=== PATIENT | female | born 1980 | race American Indian/Alaskan Native ===

== ENCOUNTER 2016-05-18 13:15 | Emergency (ER) | payer OTHER ==
[2016-05-18 14:07] VITALS: BP 100/70; PULSE 87; RESP 18; TEMP 97.9; O2SAT 98; BMI 46.3
[2016-05-18] MEDS ORDERED: Levalbuterol 1.25 MG/3 ML Inhal Soln UD IH STA ×2 (14:32→15:15)
--- NOTE | 2016-05-18 14:58 | ED PDOC ---
Arrival/HPI - General Time Seen by Provider: 05/18/16 14:28 Historian: Patient - History of Present Illness Narrative History of Present Illness (Text): 05/18/16 14:55 36yo morbidly obese female Asthmatic present with complaint of chest tightness, wheezing and nonproductive cough x 2days. This is in contrary to the engagement lead note. States her PMD called in Prednisone for her today and she took a dose, which improved her symptoms. Used her Albuterol inhaler at home prior to arrival. States she is not steroid dependent. Never intubated. reports history of hospital admission secondary to Asthma. denies fever, chills, sick contact, any other complaint. Past Medical History - Provider Review Nursing Documentation Reviewed: Yes - Past History Past History: Non-Contributing - Infectious Disease Hx of Infectious Diseases: None - Tetanus Immunization Tetanus Immunization: Unknown - Cardiac Hx Cardiac Disorders: No - Pulmonary Hx Asthma: Yes - Neurological Hx Neurological Disorder: No - HEENT Hx HEENT Disorder: No - Renal Hx Renal Disorder: No - Endocrine/Metabolic Hx Endocrine Disorders: No - Hematological/Oncological Hx Blood Disorders: No - Integumentary Hx Dermatological Disorder: No - Musculoskeletal/Rheumatological Hx Musculoskeletal Disorders: No Hx Falls: No - Gastrointestinal Hx Gastrointestinal Disorders: No - Genitourinary/Gynecological Hx Genitourinary Disorders: Yes Other/Comment: ovarian cyst and uterine fibroid - Psychiatric Hx Depression: No Hx Substance Use: No - Past Surgical History Past Surgical History: No Previous - Surgical History Other/Comment: drained abscess x2, ovarian cyst and uterine fibroid removed 10/21 - Anesthesia Hx Anesthesia: Yes Hx Anesthesia Reactions: No Hx Malignant Hyperthermia: No - Suicidal Assessment Feels Threatened In Home Enviroment: No Family/Social History - Physician Review Nursing Documentation Reviewed: Yes Family/Social History: Unknown Family HX Smoking Status: Former Smoker Hx Alcohol Use: Yes (social) Hx Substance Use: No Hx Substance Use Treatment: No Allergies/Home Meds Allergies/Adverse Reactions: Allergies aspirin Allergy (Verified 12/09/15 20:47) SHORTNESS OF BREATH "my throat swells and i get short of breath" Home Medications: Home Meds Medication Instructions Recorded Confirmed Albuterol HFA [Ventolin HFA 90 90 mcg INH PRN PRN 05/25/15 01/16/16 mcg/actuation (8 g)] Ipratropium/Albuterol Sulfate 2 puff IH BID 10/31/15 01/16/16 [Combivent Respimat] predniSONE [Prednisone] 20 mg PO DAILY 12/27/15 01/16/16 Review of Systems - Physician Review All systems were reviewed & negative as marked: Yes - Review of Systems Constitutional: Normal Eyes: Normal ENT: Normal Respiratory: SOB, Cough, Wheezing. absent: Sputum Cardiovascular: Normal Gastrointestinal: Normal Genitourinary Female: Normal Musculoskeletal: Normal Skin: Normal Neurological: Normal Endocrine: Normal Hemo/Lymphatic: Normal Psychiatric: Normal Physical Exam Vital Signs Reviewed: Yes Vital Signs Temp Pulse Resp BP Pulse Ox 05/18/16 15:00 98 05/18/16 14:07 97.9 F 87 18 100/70 98 Temperature: Afebrile Blood Pressure: Normal Pulse: Regular Respiratory Rate: Normal Appearance: Positive for: Well-Appearing, Non-Toxic, Comfortable Pain Distress: None Mental Status: Positive for: Alert and Oriented X 3 - Systems Exam Head: Present: Atraumatic, Normocephalic Pupils: Present: PERRL Extroacular Muscles: Present: EOMI Conjunctiva: Present: Normal Mouth: Present: Moist Mucous Membranes Neck: Present: Normal Range of Motion Respiratory/Chest: Present: Good Air Exchange, Wheezes (Mild expiratory wheeze at the bases). No: Clear to Auscultation, Respiratory Distress, Accessory Muscle Use, Decreased Breath Sounds, Rales, Retracting, Rhonchi Cardiovascular: Present: Regular Rate and Rhythm, Normal S1, S2. No: Murmurs Abdomen: Present: Normal Bowel Sounds. No: Tenderness, Distention, Peritoneal Signs Back: Present: Normal Inspection Upper Extremity: Present: Normal Inspection. No: Cyanosis, Edema Lower Extremity: Present: Normal Inspection. No: Edema Neurological: Present: GCS=15, CN II-XII Intact, Speech Normal Skin: Present: Warm, Dry, Normal Color. No: Rashes Psychiatric: Present: Alert, Oriented x 3, Normal Insight, Normal Concentration Medical Decision Making ED Course and Treatment: 05/18/16 15:41 Pt was comfortable and not hypoxic in ED. she had mild wheeze on the bases. Xopenex was ordered. PEr the RN Jennie, she states pt eloped from the ED. States pt was not in her room when she went to medicate her. - Medication Orders Current Medication Orders: Discontinued Medications Levalbuterol HCl (Xopenex) 1.25 mg IH STAT STA Stop: 05/18/16 14:33 Levalbuterol HCl (Xopenex) 1.25 mg IH STAT STA Stop: 05/18/16 15:16 Disposition/Present on Arrival - Present on Arrival Any Indicators Present on Arrival: No History of DVT/PE: No History of Uncontrolled Diabetes: No Urinary Catheter: No History Surgical Site Infection Following: None - Disposition Have Diagnosis and Disposition been Completed?: Yes Diagnosis: Asthma exacerbation Disposition: ELOPEMENT - ER ONLY Disposition Time: 15:25 Patient Problems: Current Active Problems Problem Status Diagnosed Groin abscess Acute History of asthma Acute Prophylactic measure Acute Pruritic condition Acute Condition: STABLE
== END 2016-05-18 15:40 | disposition left against medical advice (07) ==
LOC: ED 13:15
DX: J45.901 Unspecified asthma with (acute) exacerbation (principal); Z87.891 Personal history of nicotine dependence; E66.01 Morbid (severe) obesity due to excess calories

== ENCOUNTER 2016-09-11 04:02 | Emergency (ER) | payer MEDICAID, OTHER ==
[2016-09-11 04:03] VITALS: BMI 46.3
[2016-09-11 04:30] VITALS: BP 107/68; PULSE 61; RESP 18; TEMP 98.6; O2SAT 100
--- NOTE | 2016-09-11 04:54 | ED PDOC ---
Arrival/HPI - General Chief Complaint: Back Pain Time Seen by Provider: 09/11/16 04:47 - History of Present Illness Narrative History of Present Illness (Text): 09/11/16 04:52 Patient presents with right lower lumbar back pain. Pt states pain feels like a muscle spasm, worst with movement and palpation. No ripping/tearing sensation, pt is not diffuse and not traveling or changing location. Relieved with positioning. No lower extremity pain/weakness/paresthesias. Pt denies urinary incontinence or retention. No bowel incontinence, constipation, or diarrhea. No hx of IVDA, no f/c, no neck pain. No other complaints. Past Medical History - Provider Review Nursing Documentation Reviewed: Yes - Past History Past History: Non-Contributing - Infectious Disease Hx of Infectious Diseases: None - Tetanus Immunization Tetanus Immunization: Unknown - Cardiac Hx Cardiac Disorders: No - Pulmonary Hx Asthma: Yes - Neurological Hx Neurological Disorder: No - HEENT Hx HEENT Disorder: No - Renal Hx Renal Disorder: No - Endocrine/Metabolic Hx Endocrine Disorders: No - Hematological/Oncological Hx Blood Disorders: No - Integumentary Hx Dermatological Disorder: No - Musculoskeletal/Rheumatological Hx Musculoskeletal Disorders: No Hx Falls: No - Gastrointestinal Hx Gastrointestinal Disorders: No - Genitourinary/Gynecological Hx Genitourinary Disorders: Yes Other/Comment: ovarian cyst and uterine fibroid - Psychiatric Hx Depression: No Hx Substance Use: No - Past Surgical History Past Surgical History: No Previous - Surgical History Other/Comment: drained abscess x2, ovarian cyst and uterine fibroid removed 10/21 - Anesthesia Hx Anesthesia: Yes Hx Anesthesia Reactions: No Hx Malignant Hyperthermia: No - Suicidal Assessment Feels Threatened In Home Enviroment: No Family/Social History Family/Social History: Unknown Family HX Smoking Status: Former Smoker Hx Alcohol Use: Yes (social) Hx Substance Use: No Hx Substance Use Treatment: No Allergies/Home Meds Allergies/Adverse Reactions: Allergies aspirin Allergy (Verified 12/09/15 20:47) SHORTNESS OF BREATH "my throat swells and i get short of breath" Physical Exam - Physical Exam Narrative Physical Exam (Text): 09/11/16 04:53 - Review of Systems Constitutional: Normal. absent: Fatigue, Weight Change, Fevers Eyes: Normal ENT: denies sore throat, denies tristhmus Respiratory: Normal. absent: SOB, Cough, Sputum Cardiovascular: absent: Chest Pain, Palpitations, Syncope Gastrointestinal: Normal. absent: Abdominal Pain, Diarrhea, Nausea, Vomiting Genitourinary: Normal. absent: Dysuria, Frequency, Hematuria Musculoskeletal: back pain. absent: Arthralgias, Neck Pain Skin: no rashes, no erythema Neurological: absent: Focal Weakness Endocrine: Normal Hemo/Lymphatic: Normal Psychiatric: No suicidal or homicidal ideations Physical exam Patient appears age appropriate in no distress, speaking full sentences without difficulty Increased hypertonicity appreciated in the right lower lumbar and PSIS regions, pain quality reproduced with palpation. No midline tenderness. FROM of pt's cervical, thoracic, lumbar, and sacral regions appreciated, active/passive without any difficulty. Lower extremities with full neurological and vascular intact. Steady gait. - Systems Exam Head: Present: Atraumatic, Normocephalic Pupils: Present: PERRL Extroacular Muscles: Present: EOMI Conjunctiva: Present: Normal Mouth: Present: Moist Mucous Membranes Neck: Present: Normal Range of Motion. No: MIDLINE TENDERNESS, Paraspinal Tenderness Respiratory/Chest: Present: Clear to Auscultation, Good Air Exchange. No: Respiratory Distress, Accessory Muscle Use, Tachypneic Cardiovascular: Present: Regular Rate and Rhythm, Normal S1, S2, Peripheal Pulses Present. No: Murmurs Abdomen: Present: Normal Bowel Sounds. No: Tenderness, Distention, Peritoneal Signs, Rebound, Guarding Back: No: Midline Tenderness Upper Extremity: Present: Normal Inspection. No: Cyanosis, Edema Lower Extremity: Present: Normal Inspection. No: Edema Neurological: Present: GCS=15, Speech Normal, cranial nerves II through XII fully intact with no cerebellar abnormality, neurosensory fully intact. No focal neurological deficits. Skin: Present: Warm, Dry, Normal Color. No: Rashes Lymphatic: Present: OX3, NI, NC Psychiatric: Present: Alert, Oriented x 3, Normal Insight, Normal Concentration Vital Signs Reviewed: Yes Vital Signs Temp Pulse Resp BP Pulse Ox 09/11/16 04:29 98.6 F 61 18 107/68 100 Temperature: Afebrile Blood Pressure: Normal Pulse: Regular Respiratory Rate: Normal Appearance: Positive for: Well-Appearing Pain Distress: None Mental Status: Positive for: Alert and Oriented X 3 Medical Decision Making ED Course and Treatment: 09/11/16 05:15 RBCs in urine, CT ordered 09/11/16 06:23 CT [facility] IMPRESSION: No obstructive uropathy. Normal appendix. Right ovarian cyst. Dictated and Authenticated by: Inge Riley MD pt received toradol, reported symptomatic relief. Pt states is not driving home. Based on hx and physical, no suspicion for renal involvement, cord impingement or epidural/spinal abscess pt states she has an allergy to aspirin, but has taken advil and motrin in the past with no adverse effects stable for dc home. instructed not to drive/operate machinery/drink/do drugs with medication (states she has valium and flexeril at home) Pt verbalized understands to return to the ER right away for new or worsening symptoms or for inability to f/u with PMD or specialist as instructed. Patient verbalized full agreement with and understanding of discharge instructions. States that he agrees with the plan and disposition. Verbalized and repeated discharge instructions and plan. I have given the patient opportunity to ask any additional questions. - Lab Interpretations Lab Results: Lab Results 09/11/16 05:00: Urine Color Yellow, Urine Appearance Sl cloudy, Urine pH 7.0, Ur Specific [place] 1.025, Urine Protein Trace H, Urine Glucose (UA) Negative, Urine Ketones Negative, Urine Blood Small H, Urine Nitrate Negative, Urine Bilirubin Negative, Urine Urobilinogen 1.0 H, Ur Leukocyte Esterase Negative, Urine RBC 2 - 5, Urine WBC 0 - 2, Ur Epithelial Cells 0 - 2, Urine Bacteria Few - RAD Interpretation Radiology Orders: 09/11/16 05:15 ABD & PELVIS W/O PO OR IV CONT [CT] Stat - Medication Orders Current Medication Orders: Discontinued Medications Ketorolac Tromethamine (Toradol) 30 mg IM STAT STA Stop: 09/11/16 04:49 Last Admin: 09/11/16 05:10 Dose: 30 mg Disposition/Present on Arrival - Present on Arrival Any Indicators Present on Arrival: No History of DVT/PE: No History of Uncontrolled Diabetes: No Urinary Catheter: No History of Decub. Ulcer: No History Surgical Site Infection Following: None - Disposition Have Diagnosis and Disposition been Completed?: Yes Diagnosis: Back pain Disposition: HOME/ ROUTINE Disposition Time: 06:31 Patient Plan: Discharge Condition: GOOD Discharge Instructions (ExitCare): Back Pain (ED) Additional Instructions: PLEASE RETURN TO THE EMERGENCY DEPARTMENT FOR NEW OR WORSENING SYMPTOMS. RETURN RIGHT AWAY IF YOU CANNOT FOLLOW UP WITH YOUR PRIMARY CARE DOCTOR, CLINIC, OR SPECIALIST IN 1-2 DAYS. Prescriptions: Ibuprofen [Motrin] 600 mg PO Q8 PRN #12 tab PRN Reason: Pain, Moderate (4-7) Referrals: Joann Lind MD [Staff Provider] - Follow up with primary Forms: WORK NOTE
[2016-09-11 05:06] LABS: URINE BILIRUBIN NEGATIVE (NEGATIVE); URINE BLOOD SMALL (NEGATIVE); URINE GLUCOSE (UA) NEGATIVE (NEGATIVE); URINE LEUKOCYTE ESTERASE NEGATIVE Leu/uL (NEGATIVE); URINE NITRATE NEGATIVE (NEGATIVE); URINE PROTEIN TRACE mg/dL (<30 mg/dL)
[2016-09-11 05:14] LABS: URINE APPEARANCE SL CLOUDY (CLEAR); URINE COLOR YELLOW (YELLOW)
[2016-09-11 05:16] LABS: URINE BACTERIA FEW (NEG); URINE EPITHELIAL CELLS 0 - 2 /hpf (0-5); URINE WBC 0 - 2 /hpf (0-6)
--- NOTE | 2016-09-11 05:52 | CT ---
EXAM: CT Abdomen and Pelvis Without Intravenous Contrast CLINICAL HISTORY: 36 years old, female; Pain; Abdominal pain; Generalized; Additional info: Renal colic TECHNIQUE: Axial computed tomography images of the abdomen and pelvis without intravenous contrast. This CT exam was performed using one or more of the following dose reduction techniques: automated exposure control, adjustment of the mA and/or kV according to patient size, and/or use of iterative reconstruction technique. Coronal and sagittal reformatted images were created and reviewed. COMPARISON: CT - ABD PELVIS IV CONTRAST ONLY 10/17/2015 10:19:13 PM FINDINGS: Lower thorax: The bilateral lung bases are clear. ABDOMEN: Liver: No acute findings Gallbladder and bile ducts: No acute finding. No calcified stones. No intra-extrahepatic biliary ductal dilation. Pancreas: Limited evaluation secondary to the lack of intravenous contrast. Spleen: No acute findings. Adrenals: No acute findings. Kidneys and ureters: No obstructing stones. No hydronephrosis. PELVIS: Bladder: No acute findings. Reproductive: No asymmetric enlargement of the right ovary, in comparison to the left measuring 41 mm in anterior to posterior dimension. The enlarged ovary is of decreased attenuation, statistically a cyst. Appendix: The appendix is of normal caliber (series 2, image 126; series 601, image 45). ABDOMEN and PELVIS: Stomach and bowel: No acute findings. Peritoneum: As above. Lymph nodes: Limited evaluation without intravenous contrast. Vasculature: No aortic aneurysm. Bones: No acute fracture. IMPRESSION: No obstructive uropathy. Normal appendix. Right ovarian cyst.
== END 2016-09-11 06:47 | disposition home or self-care (01) ==
LOC: ED 04:02
DX: M54.9 Dorsalgia, unspecified (principal)
CPT/HCPCS: 74176; 81001; 96372; 99283; J1885

== ENCOUNTER 2016-10-27 06:13 | Emergency (ER) | payer MEDICAID ==
[2016-10-27 06:14] VITALS: BMI 46.3
--- NOTE | 2016-10-27 06:24 | ED PDOC ---
Arrival/HPI - General Chief Complaint: Respiratory Distress Time Seen by Provider: 10/27/16 06:18 - History of Present Illness Narrative History of Present Illness (Text): 10/27/16 06:21 Pt. to ED PMHX Asthma BIBA with c/o sob /wheezing this AM.Pt. states she had been using her MDI and nebulizer with minimal relief.Denies any chest pain.No fever/chills/or productive cough.Pt. with neb. treatment on arrival. Past Medical History - Provider Review Nursing Documentation Reviewed: Yes - Travel History Have you recently traveled outside [place] w/in the past 3 mons?: No - Past History Past History: Non-Contributing - Infectious Disease Hx of Infectious Diseases: None - Tetanus Immunization Tetanus Immunization: Unknown - Cardiac Hx Cardiac Disorders: No - Pulmonary Hx Asthma: Yes - Neurological Hx Neurological Disorder: No - HEENT Hx HEENT Disorder: No - Renal Hx Renal Disorder: No - Endocrine/Metabolic Hx Endocrine Disorders: No - Hematological/Oncological Hx Blood Disorders: No - Integumentary Hx Dermatological Disorder: No - Musculoskeletal/Rheumatological Hx Musculoskeletal Disorders: No Hx Falls: No - Gastrointestinal Hx Gastrointestinal Disorders: No - Genitourinary/Gynecological Hx Genitourinary Disorders: Yes Other/Comment: ovarian cyst and uterine fibroid - Psychiatric Hx Depression: No Hx Substance Use: No - Past Surgical History Past Surgical History: No Previous - Surgical History Other/Comment: drained abscess x2, ovarian cyst and uterine fibroid removed 10/21 - Anesthesia Hx Anesthesia: Yes Hx Anesthesia Reactions: No Hx Malignant Hyperthermia: No - Suicidal Assessment Feels Threatened In Home Enviroment: No Family/Social History - Physician Review Nursing Documentation Reviewed: Yes Family/Social History: No Known Family HX Smoking Status: Former Smoker Hx Alcohol Use: Yes (social) Hx Substance Use: No Hx Substance Use Treatment: No Allergies/Home Meds Allergies/Adverse Reactions: Allergies aspirin Allergy (Verified 10/27/16 06:29) SHORTNESS OF BREATH "my throat swells and i get short of breath" Home Medications: Home Meds Medication Instructions Recorded Confirmed Unobtainable 10/27/16 10/27/16 Review of Systems - Review of Systems Constitutional: Normal Eyes: Normal ENT: Normal Respiratory: SOB, Wheezing Cardiovascular: Normal Gastrointestinal: Normal Genitourinary Female: Normal Musculoskeletal: Normal Skin: Normal Neurological: Normal Endocrine: Normal Hemo/Lymphatic: Normal Psychiatric: Normal Physical Exam Vital Signs Temp Pulse Resp BP Pulse Ox 10/27/16 06:32 97.1 F L 99 H 18 154/110 H 100 Temperature: Afebrile Blood Pressure: Normal Pulse: Regular Respiratory Rate: Normal Appearance: Positive for: Well-Appearing, Non-Toxic, Comfortable Pain Distress: None Mental Status: Positive for: Alert and Oriented X 3 - Systems Exam Head: Present: Atraumatic, Normocephalic Pupils: Present: PERRL Extroacular Muscles: Present: EOMI Conjunctiva: Present: Normal Ears: Present: NORMAL TM Mouth: Present: Moist Mucous Membranes Pharnyx: Present: Normal Neck: Present: Normal Range of Motion Respiratory/Chest: Present: Clear to Auscultation, Wheezes. No: Respiratory Distress, Accessory Muscle Use Cardiovascular: Present: Regular Rate and Rhythm, Normal S1, S2. No: Murmurs Back: Present: Normal Inspection Upper Extremity: Present: Normal Inspection. No: Cyanosis, Edema Lower Extremity: Present: Normal Inspection. No: Edema Neurological: Present: GCS=15, CN II-XII Intact, Speech Normal, Motor Func Grossly Intact, Normal Sensory Function Skin: Present: Warm, Dry, Normal Color. No: Rashes Psychiatric: Present: Alert, Oriented x 3, Normal Insight, Normal Concentration Medical Decision Making - Medication Orders Current Medication Orders: Discontinued Medications Albuterol/Ipratropium (Duoneb 3 Mg/0.5 Mg (3 Ml) Ud) 3 ml IH ONCE STA Stop: 10/27/16 06:29 Methylprednisolone (Solu-Medrol) 125 mg IVP ONCE ONE Stop: 10/27/16 06:29 - Transfer of Care Patient signed out to :Tato Doyle Pending Labs:: Labs/response to treatment/reassess/final disposition Disposition/Present on Arrival - Present on Arrival Any Indicators Present on Arrival: No History of DVT/PE: No History of Uncontrolled Diabetes: No Urinary Catheter: No History Surgical Site Infection Following: None - Disposition Have Diagnosis and Disposition been Completed?: No Diagnosis: Asthma Disposition Time: 07:00 Condition: STABLE
[2016-10-27] MEDS ORDERED: Albuterol-Ipratrop 3 mg / 0.5 (3 ml) UD IH STA (06:28)
[2016-10-27 06:36] VITALS: TEMP 97.1; O2SAT 100
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
[2016-10-27 08:02] LABS: HEMATOCRIT 40.5 % (36.0-48.0); MEAN CELL VOLUME 88.2 fl (80.0-105.0); MEAN CORPUSCULAR HEMOGLOBIN 29.4 pg (25.0-35.0); MEAN CORPUSCULAR HGB CONC 33.3 g/dl (31.0-37.0); MEAN PLATELET VOLUME 9.1 fl (7.0-11.0); RED CELL DISTRIBUTION WIDTH 13.7 % (11.5-14.5); WHITE BLOOD COUNT 13.1 10^3/ul (4.5-11.0)
[2016-10-27 08:12] VITALS: BP 135/82; PULSE 72
[2016-10-27 08:30] LABS: ALB/GLOB RATIO 1.4 (1.1-1.8); ALKALINE PHOSPHATASE 56 U/L (38-133); ALT/SGPT 30 U/L (7-56); AST/SGOT 29 U/L (15-39); BILIRUBIN,TOTAL 0.7 mg/dL (0.2-1.3); BLOOD UREA NITROGEN 12 mg/dL (7-21); CALCIUM 9.4 mg/dL (8.4-10.5); CARBON DIOXIDE 29 mmol/L (21-33); CHLORIDE 103 mmol/L (98-107); GFR AFRICAN-AMERICAN > 60; GLUCOSE,RANDOM 140 mg/dL (70-110); POTASSIUM 3.3 mmol/L (3.6-5.0); SODIUM 142 mmol/L (132-148)
[2016-10-27 08:36] VITALS: RESP 18
[2016-10-27] MEDS ORDERED: Potassium Chloride 20 mEq ER Tab PO STA (08:39)
--- NOTE | 2016-10-27 10:06 | RAD ---
HISTORY: Asthma COMPARISON: 03/16/2016. FINDINGS: LUNGS: The lungs are well inflated and clear. PLEURA: No significant pleural effusion identified, no pneumothorax apparent. CARDIOVASCULAR: Normal. OSSEOUS STRUCTURES: No significant abnormalities. VISUALIZED UPPER ABDOMEN: Normal. OTHER FINDINGS: None. IMPRESSION: No active pulmonary disease.
== END 2016-10-27 11:10 | disposition home or self-care (01) ==
LOC: ED 06:13
DX: J45.909 Unspecified asthma, uncomplicated (principal); Z87.891 Personal history of nicotine dependence
CPT/HCPCS: 71010; 80053; 85027; 96374; 99285; J2930

== ENCOUNTER 2016-11-15 16:59 | Emergency (ER) | payer MEDICAID ==
[2016-11-15 17:03] VITALS: BMI 41.2
[2016-11-15 17:05] VITALS: BP 119/73; PULSE 77; TEMP 98.1; O2SAT 98
[2016-11-15] MEDS ORDERED: TDAP Vaccine 0.5 mL Syr IM ONE (17:50)
--- NOTE | 2016-11-15 18:00 | ED PDOC ---
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 Patient stated a heavy marble table, which was leaning against the wall, fall over her posterior legs. Patient has a couple abrasions. Last tetanus is UKN. Patient is able to ambulate without discomfort. (Daisy Lamar) Past Medical History - Provider Review Nursing Documentation Reviewed: Yes - Past History Past History: Non-Contributing - Infectious Disease Hx of Infectious Diseases: None - Tetanus Immunization Tetanus Immunization: Unknown - Cardiac Hx Cardiac Disorders: No - Pulmonary Hx Asthma: Yes - Neurological Hx Neurological Disorder: No - HEENT Hx HEENT Disorder: No - Renal Hx Renal Disorder: No - Endocrine/Metabolic Hx Endocrine Disorders: No - Hematological/Oncological Hx Blood Disorders: No - Integumentary Hx Dermatological Disorder: No - Musculoskeletal/Rheumatological Hx Arthritis: Yes (R knee) Hx Falls: No - Gastrointestinal Hx Gastrointestinal Disorders: No - Genitourinary/Gynecological Hx Genitourinary Disorders: Yes Other/Comment: ovarian cyst and uterine fibroid - Psychiatric Hx Depression: No Hx Substance Use: No - Past Surgical History Past Surgical History: No Previous - Surgical History Other/Comment: drained abscess x2, ovarian cyst and uterine fibroid removed 10/21 - Anesthesia Hx Anesthesia: Yes Hx Anesthesia Reactions: No Hx Malignant Hyperthermia: No - Suicidal Assessment Feels Threatened In Home Enviroment: No Family/Social History - Physician Review Nursing Documentation Reviewed: Yes Family/Social History: Other (non-contributory) Smoking Status: Current Some Days Smoker Hx Alcohol Use: Yes (social) Frequency of alcohol use: Socially Hx Substance Use: No Hx Substance Use Treatment: No Allergies/Home Meds Allergies/Adverse Reactions: Allergies aspirin Allergy (Verified 10/27/16 06:29) SHORTNESS OF BREATH "my throat swells and i get short of breath" Home Medications: Home Meds Medication Instructions Recorded Confirmed Albuterol/Ipratropium [Combivent 1 puff IH DAILY PRN 11/15/16 11/15/16 Respimat] predniSONE [predniSONE Tab] 10 mg PO DAILY 11/15/16 11/15/16 Review of Systems - Review of Systems Constitutional: Normal. absent: Fatigue, Weight Change, Fevers Eyes: Normal ENT: Normal Respiratory: Normal Cardiovascular: Normal Gastrointestinal: Normal Genitourinary Female: Normal Musculoskeletal: Other (see hpi) Skin: Other (see hpi) Neurological: Normal Endocrine: Normal Hemo/Lymphatic: Normal Psychiatric: Normal Physical Exam Temperature: Afebrile Blood Pressure: Normal Pulse: Regular Respiratory Rate: Normal Appearance: Positive for: Well-Appearing, Non-Toxic, Comfortable Pain Distress: None Mental Status: Positive for: Alert and Oriented X 3 - Systems Exam Head: Present: Atraumatic, Normocephalic Pupils: Present: PERRL Extroacular Muscles: Present: EOMI Conjunctiva: Present: Normal Mouth: Present: Moist Mucous Membranes Neck: Present: Normal Range of Motion Upper Extremity: Present: Normal Inspection, Normal ROM, NORMAL PULSES, Neurovascularly Intact, Capillary Refill < 2s Lower Extremity: Present: NORMAL PULSES, Normal ROM, Neurovascularly Intact, Capillary Refill < 2 s, Other ((+) left posterior knee abrasion, mild left lateral lower leg tenderness. No ecchymosis or swelling. (+) right posterior ankle abrasion. No posterior calf tenderness. Zhang test is negative ). No : CALF TENDERNESS Neurological: Present: GCS=15, CN II-XII Intact, Speech Normal, Motor Func Grossly Intact, Normal Sensory Function, Normal Cerebellar Funct, Gait Normal, Memory Normal Skin: Present: Warm, Dry, Normal Color, Abrasion (see LE). No: Rashes Psychiatric: Present: Alert, Oriented x 3, Normal Insight, Normal Concentration Vital Signs Temp Pulse Resp BP Pulse Ox 11/15/16 18:31 17 98 11/15/16 17:04 98.1 F 77 18 119/73 98 Medical Decision Making Re-evaluation Time: :17 Reassessment Condition: Re-examined, Improved ED Course and Treatment: 11/16/16 14:51 Official xray results show the following: IMPRESSION: Acute mildly displaced fracture in the head of the fibula with 1 cortex with medial displacement. I attempted to call the patient, no one answer, voicemail is full, next PA should perform the call back tomorrow to reassess as per ER standard protocol ( Landry Chao) 11/15/16 18:00 Patient refused pain medication. 11/18/16 12:14 I SPOKE WITH PATIENT REGARDING PROXIMAL FIBULAR FRACTURE SEEN ON TIB FIB X-RAYS. I GAVE PATIENT NAME AND NUMBER OF [facility] FOR FOLLOW UP VISIT. PATIENT UNDERSTOOD PLAN TO F/U DR. ANGLIN IN 1-2 DAYS. (Daisy Lamar) - RAD Interpretation Narrative RAD Interpretations (Text): 11/15/16 18:19 Tib Fib x-rays: No Fx 11/15/16 18:20 Ankle x-rays: No Fx. 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 Ulcer: No History Surgical Site Infection Following: None - Disposition Have Diagnosis and Disposition been Completed?: Yes Disposition Time: 18:21 Patient Plan: Discharge - Disposition Diagnosis: Leg pain, Ankle pain, Abrasion, Fracture, fibula, proximal Disposition: HOME/ ROUTINE Condition: GOOD Discharge Instructions (ExitCare): Contusion in Adults (ED) Additional Instructions: Call private doctor for follow up visit in 1-2 days. Clean scrapes with soap and water only, and apply over the counter topical antibiotic. Return to emergency for skin infection or worsen symptoms. Take OTC Tylenol for pain as needed. Patient was recommended to f/u Dr. Anglin in 1-2 days. To avoid extraneous activities. Return to emergency if pain worsen. Referrals: Tao Barahona MD [Primary Care Provider] - Follow up with primary Cullen Anglin DO [Staff Provider] - Follow up with primary Forms: [employer] (Setswana)
[2016-11-15 18:32] VITALS: RESP 17
--- NOTE | 2016-11-16 09:01 | RAD ---
PROCEDURE: Radiographs of the left tibia and fibula. HISTORY: pain COMPARISON: None available. TECHNIQUE: Frontal and lateral views obtained. FINDINGS: BONES: There is an acute mildly displaced fracture in the head of the fibula with 1 cortex with medial displacement. No significant angulation. Bone alignment and mineralization are normal. JOINT SPACES: Unremarkable. OTHER FINDINGS: None. IMPRESSION: Acute mildly displaced fracture in the head of the fibula with 1 cortex with medial displacement. There is a discrepancy with the ER preliminary read. This finding was brought to the ER is a tension by tagging the study in the ER and discrepancy folderes.
--- NOTE | 2016-11-16 09:02 | RAD ---
PROCEDURE: Right Ankle Radiographs. HISTORY: pain COMPARISON: None FINDINGS: BONES: Bone alignment and mineralization are normal. There is no acute displaced fracture or bone destruction. There is a prominent plantar calcaneal spur. There is a small dorsal calcaneal enthesophyte JOINTS: Normal. No osteoarthritis. Ankle mortise maintained. Talar dome intact SOFT TISSUES: Normal. OTHER FINDINGS: None. IMPRESSION: No acute fracture or dislocation.
--- NOTE | 2016-11-17 14:11 | ED PDOC ---
ED Additional Note - Physician Additional Note Physician Additional Note: XRAY PLACED INTO PA REVIEW FOLDER; XRAY SHOWS FRACTURE OF THE HEAD OF THE FIBULA WITH MEDIAL DISPLACEMENT. UNABLE TO LEAVE VOICEMAIL; MAILBOX FULL. THIS IS THE 2ND ATTEMPT TO REACH THE PATIENT. WILL SEND CERTIFIED LETTER. XRAY REPORT GIVEN TO LIS [employer]OUS [employer]OR [employer]SEMBLER TO SEND CERTIFIED LETTER.
== END 2016-11-15 18:32 | disposition home or self-care (01) ==
LOC: ED 16:59
DX: M79.662 Pain in left lower leg (principal); M25.571 Pain in right ankle and joints of right foot; S80.212A Abrasion, left knee, initial encounter; W20.8XXA Other cause of strike by thrown, projected or falling object, initial encounter; Z23 Encounter for immunization

== ENCOUNTER 2016-11-24 12:37 | Emergency (ER) | payer MEDICAID ==
[2016-11-24 12:54] VITALS: BP 114/66; PULSE 78; RESP 18; TEMP 98.7; O2SAT 98; BMI 40.7
--- NOTE | 2016-11-24 13:09 | ED PDOC ---
Arrival/HPI - General Historian: Patient - History of Present Illness Time/Duration: < month Symptom Onset: Gradual Symptom Course: Worsening Severity Level: 8 Context: Walking <LISETTE VALVERDE - Last Filed: 11/24/16 13:40> <Bay Velasquez - Last Filed: 11/24/16 14:16> - General Chief Complaint: Lower Extremity Problem/Injury Time Seen by Provider: 11/24/16 12:51 - History of Present Illness Narrative History of Present Illness (Text): 11/24/16 13:04 Mrs. Finch is a 36 year old female with a past medical history of asthma who presents to the emergency department with left lower extremity numbness/ tingling. Patient reports that she came to the Emergency department today because she was notified that she had a fracture in her left leg. Patient was recently discharged [place] [facility] [place] with a diagnosis of contusion after she presented for left lower extremity pain caused by a table falling on her left leg. During that admission, a preliminary read on a left tibia/fibula x-ray showed no fracture. She was instructed to follow up with her PMD, which she did the following day. The final read of her left tibia/fibula x-ray showed that she had a mildly displaced left fibular head fracture. Patient was notified of this by [facility] Emergency department staff via text, phone call and certified mail. She reports being seen at [facility] for an asthma exacerbation since that time. During her admission at [facility], she reports that she notified the [facility] staff of her fracture and they did an x-ray of her left lower extremity and told her that they found "nothing". Patient reports that since her discharge from [facility], she has had intermittent numbness/tingling in her left lower extremity with associated left lower extremity tenderness, both of which she reports as self limiting. She also reports that she has made an appointment with an orthopedic surgeon for December 07, the name of whom she does not recall at this time. She reports no other medical complaints at this time. (LISETTE VALVERDE) Past Medical History - Provider Review Nursing Documentation Reviewed: Yes - Past History Past History: Non-Contributing - Infectious Disease Hx of Infectious Diseases: None - Tetanus Immunization Tetanus Immunization: Unknown - Cardiac Hx Cardiac Disorders: No - Pulmonary Hx Asthma: Yes - Neurological Hx Neurological Disorder: No - HEENT Hx HEENT Disorder: No - Renal Hx Renal Disorder: No - Endocrine/Metabolic Hx Endocrine Disorders: No - Hematological/Oncological Hx Blood Disorders: No - Integumentary Hx Dermatological Disorder: No - Musculoskeletal/Rheumatological Hx Arthritis: Yes (R knee) Hx Falls: No - Gastrointestinal Hx Gastrointestinal Disorders: No - Genitourinary/Gynecological Hx Genitourinary Disorders: Yes Other/Comment: ovarian cyst and uterine fibroid - Psychiatric Hx Depression: No Hx Substance Use: No - Past Surgical History Past Surgical History: No Previous - Surgical History Other/Comment: drained abscess x2, ovarian cyst and uterine fibroid removed - Anesthesia Hx Anesthesia: Yes Hx Anesthesia Reactions: No Hx Malignant Hyperthermia: No - Suicidal Assessment Feels Threatened In Home Enviroment: No <LISETTE VALVERDE - Last Filed: 11/24/16 13:40> Family/Social History - Physician Review Nursing Documentation Reviewed: Yes Family/Social History: Unknown Family HX Smoking Status: Current Some Days Smoker Hx Alcohol Use: Yes (social) Hx Substance Use: No Hx Substance Use Treatment: No <LISETTE VALVERDE - Last Filed: 11/24/16 13:40> Allergies/Home Meds <LISETTE VALVERDE - Last Filed: 11/24/16 13:40> <Bay Velasquez - Last Filed: 11/24/16 14:16> Allergies/Adverse Reactions: Allergies aspirin Allergy (Intermediate, Verified 11/24/16 12:49) SHORTNESS OF BREATH "my throat swells and i get short of breath" Home Medications: Home Meds Medication Instructions Recorded Confirmed Albuterol/Ipratropium [Combivent 1 puff IH DAILY PRN 11/15/16 11/24/16 Respimat] predniSONE [predniSONE Tab] 10 mg PO DAILY 11/15/16 11/24/16 Montelukast [Singulair] 10 mg PO HS 11/24/16 11/24/16 diaZEpam [Valium] 5 mg PO PRN PRN 11/24/16 11/24/16 oxyCODONE [oxyCONTIN Extended 10 mg PO Q6H PRN 11/24/16 11/24/16 Release Tab] Review of Systems - Physician Review All systems were reviewed & negative as marked: Yes - Review of Systems Constitutional: Normal Eyes: Normal ENT: Normal Respiratory: Normal. absent: SOB, Cough, Wheezing Cardiovascular: Normal. absent: Chest Pain Gastrointestinal: Normal. absent: Nausea, Vomiting Musculoskeletal: Arthralgias (L knee pain) Skin: Other (contusion) Neurological: Other (numbness/tingling of left lower extremity) <LISETTE VALVERDE - Last Filed: 11/24/16 13:40> Physical Exam Vital Signs Reviewed: Yes Temperature: Afebrile Blood Pressure: Normal Pulse: Regular Respiratory Rate: Normal Appearance: Positive for: Non-Toxic Pain Distress: Mild Mental Status: Positive for: Alert and Oriented X 3 - Systems Exam Head: Present: Atraumatic, Normocephalic Pupils: Present: PERRL Extroacular Muscles: Present: EOMI Conjunctiva: Present: Normal Mouth: Present: Moist Mucous Membranes Neck: Present: Normal Range of Motion Respiratory/Chest: Present: Clear to Auscultation, Good Air Exchange. No: Respiratory Distress, Accessory Muscle Use Cardiovascular: Present: Regular Rate and Rhythm, Normal S1, S2. No: Murmurs Abdomen: Present: Normal Bowel Sounds. No: Tenderness, Distention Upper Extremity: Present: Normal Inspection, NORMAL PULSES, Capillary Refill < 2s. No: Cyanosis, Edema Lower Extremity: Present: CALF TENDERNESS, NORMAL PULSES, Tenderness, Neurovascularly Intact, Capillary Refill < 2 s, Other (Contusion on dorsal surface of left lower extremity extending distally to the mid calf from the retro popliteal fossa with trace edema). No: Normal Inspection, Edema Neurological: Present: GCS=15, CN II-XII Intact, Speech Normal Skin: Present: Warm, Dry, Normal Color. No: Rashes Psychiatric: Present: Alert, Oriented x 3, Normal Insight, Normal Concentration <LISETTE VALVERDE - Last Filed: 11/24/16 13:40> Vital Signs Temp Pulse Resp BP Pulse Ox 11/24/16 12:48 98.7 F 78 18 114/66 98 Medical Decision Making - Lab Interpretations I have reviewed the lab results: Yes <LISETTE VALVERDE - Last Filed: 11/24/16 13:40> <Bay Velasquez - Last Filed: 11/24/16 14:16> ED Course and Treatment: 11/24/16 13:30 Impression: 36 year old female with a past medical history of asthma presents to the emergency department with left lower extremity numbness/tingling/ tenderness after she was notified that she had a fracture of her left fibular head Differential Diagnosis included but are not limited to: Fracture of left fibular head Plan: -Left Tibia/Fibula X-Ray pending -- Reassess and disposition Prior Visits: Notes and results from previous visits were reviewed. On 11/15/2016 patient came in complaining of left leg pain. Patient was discharged home with a diagnosis of contusion with instructions to follow up with her PMD. Progress Notes: (LISETTE VALVERDE) 11/24/16 13:54 Seen and examined with the resident. Our history and physical exam reveals a young woman who suffered blunt forced trauma to her left lateral knee area when a table fell on to her several weeks ago. She was seen in our emergency department and in another emergency department. She been diagnosed with a fracture of the fibular head. Continued pain swelling and ecchymosis. She has appointment with orthopedist next week. (Bay Velasquez) - RAD Interpretation Radiology Orders: 11/24/16 13:07 TIBIA FIBULA LEFT [RAD] Stat Disposition/Present on Arrival - Present on Arrival History of DVT/PE: No History of Uncontrolled Diabetes: No Urinary Catheter: No History of Decub. Ulcer: No History Surgical Site Infection Following: None <LISETTE VALVERDE - Last Filed: 11/24/16 13:40> - Present on Arrival Any Indicators Present on Arrival: No History of DVT/PE: No History of Uncontrolled Diabetes: No Urinary Catheter: No History of Decub. Ulcer: No - Disposition Have Diagnosis and Disposition been Completed?: Yes Disposition Time: 14:15 Patient Plan: Discharge <Bay Velasquez - Last Filed: 11/24/16 14:16> - Disposition Diagnosis: Fibula upper end fracture Disposition: HOME/ ROUTINE Condition: GOOD Discharge Instructions (ExitCare): Leg Fracture (ED) Additional Instructions: Follow-up with orthopedist as already scheduled. Rest moist heat and elevation. Follow-up in the ER as needed. Tylenol or Advil as directed on bottle as needed. Referrals: PCP,NO [Primary Care Provider] - Follow up with primary Forms: [email or web address] (Lao)
--- NOTE | 2016-11-24 13:56 | RAD ---
PROCEDURE: Radiographs of the left tibia and fibula. HISTORY: Fracture of left fibular head COMPARISON: 11/15/2016 TECHNIQUE: Frontal and lateral views obtained. FINDINGS: BONES: Bone alignment and mineralization are normal. There is redemonstration of mild cortical step-off in the fibular head identified only on frontal projection. JOINT SPACES: Unremarkable. OTHER FINDINGS: None. IMPRESSION: Redemonstration of mildly displaced fracture in the fibular head. Follow-up is advised.
== END 2016-11-24 14:25 | disposition home or self-care (01) ==
LOC: ED 12:37
DX: S82.832D Other fracture of upper and lower end of left fibula, subsequent encounter for closed fracture with routine healing (principal); W20.8XXD Other cause of strike by thrown, projected or falling object, subsequent encounter

== ENCOUNTER 2016-12-27 17:44 | Emergency (ER) | payer MEDICAID ==
[2016-12-27 17:45] VITALS: BMI 41.2
[2016-12-27 18:23] VITALS: BP 121/78; PULSE 78; RESP 18; TEMP 98; O2SAT 100
[2016-12-27] MEDS ORDERED: Oxycodone/Acetaminophen 5/325 mg Tab PO STA (18:40)
--- NOTE | 2016-12-27 20:14 | ED PDOC ---
Arrival/HPI - General Chief Complaint: Back Pain Time Seen by Provider: 12/27/16 17:57 Historian: Patient - History of Present Illness Narrative History of Present Illness (Text): 36 Y/O female w/ pmhx of cervical radiculopathy, followed by [pain management, recent left fibular fracture presents s/p accidental trip and fall yesterday onto her right thumb, now c/u rt. thumb painmedial aspect and over 2nd digt lateral aspect, pain most prominently felt in the DIP. Denies tendinous deficit although she complains of reluctance due to the pain, denies any lacerations / abrasions. 12/27/16 20:11 Past Medical History - Provider Review Nursing Documentation Reviewed: Yes - Past History Past History: Non-Contributing - Infectious Disease Hx of Infectious Diseases: None - Tetanus Immunization Tetanus Immunization: Unknown - Cardiac Hx Cardiac Disorders: No - Pulmonary Hx Asthma: Yes - Neurological Hx Neurological Disorder: No - HEENT Hx HEENT Disorder: No - Renal Hx Renal Disorder: No - Endocrine/Metabolic Hx Endocrine Disorders: No - Hematological/Oncological Hx Blood Disorders: No - Integumentary Hx Dermatological Disorder: No - Musculoskeletal/Rheumatological Hx Arthritis: Yes (R knee) Hx Falls: No Other/Comment: NECK PAIN, FX FIBULA - Gastrointestinal Hx Gastrointestinal Disorders: No - Genitourinary/Gynecological Hx Genitourinary Disorders: Yes Other/Comment: ovarian cyst and uterine fibroid - Psychiatric Hx Psychophysiologic Disorder: No Hx Substance Use: Yes (CANNABIS) - Past Surgical History Past Surgical History: No Previous - Surgical History Other/Comment: drained abscess x2, ovarian cyst and uterine fibroid removed 10/21 - Anesthesia Hx Anesthesia: Yes - Suicidal Assessment Feels Threatened In Home Enviroment: No Family/Social History - Physician Review Nursing Documentation Reviewed: Yes Family/Social History: No Known Family HX Smoking Status: Current Some Days Smoker Hx Alcohol Use: Yes (social) Hx Substance Use: Yes (CANNABIS) Hx Substance Use Treatment: No Allergies/Home Meds Allergies/Adverse Reactions: Allergies aspirin Allergy (Intermediate, Verified 12/27/16 18:14) SHORTNESS OF BREATH "my throat swells and i get short of breath" Home Medications: Home Meds Medication Instructions Recorded Confirmed Albuterol/Ipratropium [Combivent 1 puff IH DAILY PRN 11/15/16 12/27/16 Respimat] predniSONE [predniSONE Tab] 40 mg PO DAILY 11/15/16 12/27/16 Montelukast [Singulair] 10 mg PO HS 11/24/16 12/27/16 diaZEpam [Valium] 5 mg PO PRN PRN 11/24/16 12/27/16 Oxycodone HCl/Acetaminophen 1 tab PO Q6 PRN 12/27/16 12/27/16 [Endocet 10-325 mg Tablet] Review of Systems - Physician Review All systems were reviewed & negative as marked: Yes - Review of Systems Constitutional: Normal Eyes: Normal ENT: Normal Respiratory: Normal Cardiovascular: Normal Gastrointestinal: Normal Genitourinary Female: Normal Musculoskeletal: Arthralgias, Joint Swelling Skin: Normal Neurological: Normal Endocrine: Normal Hemo/Lymphatic: Normal Psychiatric: Normal Physical Exam Vital Signs Reviewed: Yes Vital Signs Temp Pulse Resp BP Pulse Ox 12/27/16 18:09 98.0 F 78 18 121/78 100 Temperature: Afebrile Blood Pressure: Normal Pulse: Regular Respiratory Rate: Normal Appearance: Positive for: Well-Appearing, Non-Toxic, Comfortable Pain Distress: None Mental Status: Positive for: Alert and Oriented X 3 - Systems Exam Head: Present: Atraumatic, Normocephalic Pupils: Present: PERRL Extroacular Muscles: Present: EOMI Conjunctiva: Present: Normal Mouth: Present: Moist Mucous Membranes Neck: Present: Normal Range of Motion Respiratory/Chest: Present: Clear to Auscultation, Good Air Exchange. No: Respiratory Distress, Accessory Muscle Use Cardiovascular: Present: Regular Rate and Rhythm, Normal S1, S2. No: Murmurs Abdomen: Present: Normal Bowel Sounds. No: Tenderness, Distention, Peritoneal Signs Back: Present: Normal Inspection Upper Extremity: Present: Tenderness, Swelling (rt. thumb DIP ttp, able to flex joint albeit with reluctance. ), Other (rt dip joint and interphalangeal segment mild swelling and ttp, as well lateral 2nd digit. ). No: Cyanosis, Edema Lower Extremity: Present: Normal Inspection. No: Edema Neurological: Present: GCS=15, CN II-XII Intact, Speech Normal, Motor Func Grossly Intact, Normal Sensory Function, Normal Cerebellar Funct, Norm Deep Tendon Reflexes, Gait Normal Skin: Present: Warm, Dry, Normal Color. No: Rashes Psychiatric: Present: Alert, Oriented x 3, Normal Insight, Normal Concentration Medical Decision Making ED Course and Treatment: 12/27/16 20:29 pain palliated s/p analgesics. thumb placed in splint pt offerred orthoi f/u prn nonimprovemet w/ R.I.C.E measures - RAD Interpretation Radiology Orders: 12/27/16 18:38 HAND RIGHT THUMB [RAD] Stat - Medication Orders Current Medication Orders: Discontinued Medications Oxycodone/Acetaminophen (Percocet 5/325 Mg Tab) 1 tab PO STAT STA Stop: 12/27/16 18:41 Last Admin: 12/27/16 18:58 Dose: 1 tab MAR Pain Assessment Document 12/27/16 18:58 AD (Rec: 12/27/16 18:59 AD [id number] Pain Reassessment Is this a pain reassessment? No Presence of Pain Presence of Pain Yes Pain Scale Used Pain Scale Used Numeric Location Left, Right or Bilateral Right Pain Location Body Site Thumb Description Intensity of Pain at present 6 Pain Behavior Facial Grimacing Disposition/Present on Arrival - Present on Arrival Any Indicators Present on Arrival: No History of DVT/PE: No History of Uncontrolled Diabetes: No Urinary Catheter: No History of Decub. Ulcer: No History Surgical Site Infection Following: None - Disposition Have Diagnosis and Disposition been Completed?: Yes Diagnosis: Thumb sprain Disposition: OTHER INSTITUTION Disposition Time: 20:31 Patient Plan: Discharge Condition: CRITICAL Discharge Instructions (ExitCare): Finger Sprain (ED) Print Language: PAKISTANI Prescriptions: Acetaminophen [Tylenol 325mg tab] 650 mg PO Q6 PRN #40 tab PRN Reason: Pain, Moderate (4-7) Referrals: Olivia Murray MD [Staff Provider] - Follow up with primary Forms: [employer] (Romanian)
--- NOTE | 2016-12-28 08:16 | RAD ---
PROCEDURE: Right Hand and thumb Radiographs. HISTORY: fall COMPARISON: None. FINDINGS: BONES: Normal. No fracture. JOINTS: Normal. No osteoarthritic changes. SOFT TISSUES: Normal. OTHER FINDINGS: None. IMPRESSION: Normal right hand radiographs.
== END 2016-12-27 20:50 | disposition home or self-care (01) ==
LOC: ED 17:44
DX: S63.601A Unspecified sprain of right thumb, initial encounter (principal); W01.0XXA Fall on same level from slipping, tripping and stumbling without subsequent striking against object, initial encounter; F17.200 Nicotine dependence, unspecified, uncomplicated

== ENCOUNTER 2017-01-06 18:35 | Observation (INO) | payer MEDICAID ==
[2017-01-06] MEDS ORDERED: Sodium Chloride 0.9% 1,000 ML IV STA (19:34)
[2017-01-06 20:35] LABS: BASO # 0.02 K/mm3 (0.0-2.0); BASO % 0.2 % (0.0-3.0); EOS # 0.3 (0.0-0.7); GRAN # 5.15 (1.4-6.5); GRAN % 47.9 % (50.0-68.0); HEMATOCRIT 35.7 % (36.0-48.0); LYMPH # 4.7 (1.2-3.4); LYMPH % 43.3 % (22.0-35.0); MEAN CELL VOLUME 91.1 fl (80.0-105.0); MEAN CORPUSCULAR HEMOGLOBIN 29.3 pg (25.0-35.0); MEAN CORPUSCULAR HGB CONC 32.2 g/dl (31.0-37.0); MEAN PLATELET VOLUME 8.9 fl (7.0-11.0); MONO # 0.6 (0.1-0.6); MONO % 5.6 % (1.0-6.0); RED CELL DISTRIBUTION WIDTH 14.1 % (11.5-14.5); URINE BILIRUBIN NEGATIVE (NEGATIVE); URINE BLOOD TRACE-INTACT (NEGATIVE); URINE GLUCOSE (UA) NEGATIVE (NEGATIVE); URINE KETONE NEGATIVE (NEGATIVE); URINE LEUKOCYTE ESTERASE NEGATIVE Leu/uL (NEGATIVE); URINE PROTEIN NEGATIVE mg/dL (<30 mg/dL); URINE UROBILINOGEN 0.2 E.U./dL (<1 E.U./dL); WHITE BLOOD COUNT 10.8 10^3/ul (4.5-11.0)
[2017-01-06 20:36] LABS: URINE APPEARANCE CLEAR (CLEAR); URINE COLOR YELLOW (YELLOW)
[2017-01-06 20:46] LABS: ALB/GLOB RATIO 1.3 (1.1-1.8); ALKALINE PHOSPHATASE 43 U/L (38-126); ALT/SGPT 34 U/L (7-56); AST/SGOT 24 U/L (14-36); BILIRUBIN,TOTAL 0.7 mg/dL (0.2-1.3); BLOOD UREA NITROGEN 12 mg/dL (7-21); CALCIUM 9.1 mg/dL (8.4-10.5); CARBON DIOXIDE 32 mmol/L (21-33); CHLORIDE 105 mmol/L (98-107); GFR AFRICAN-AMERICAN > 60; GLUCOSE,RANDOM 80 mg/dL (70-110); POTASSIUM 3.2 mmol/L (3.6-5.0); SODIUM 142 mmol/L (132-148); TOTAL PROTEIN 5.9 g/dL (5.8-8.3)
[2017-01-06 20:53] LABS: URINE BACTERIA MANY (NEG)
[2017-01-06] MEDS ORDERED: Iohexol 350 MG/100 ML VIAL ONE (21:32)
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
[2017-01-06] MEDS ORDERED: Azithromycin 500MG/NS 250ml 500 MG/250 ML BAG IVPB STA (23:49)
[2017-01-06] MEDS ORDERED: cefTRIAXone 1 gm 1 GM/100 ML BAG IVPB STA (23:49)
[2017-01-06] MEDS ORDERED: Albuterol-Ipratrop 3 mg / 0.5 (3 ml) UD IH STA (23:50)
[2017-01-06] MEDS ORDERED: Potassium Chloride 20 mEq ER Tab PO STA (23:52)
[2017-01-07] MEDS ORDERED: Albuterol-Ipratrop 3 mg / 0.5 (3 ml) UD IH STA (02:26)
[2017-01-07 02:57] LABS: ARTERIAL BLOOD GAS HCO3 27.8 mmol/L (21-28); ARTERIAL BLOOD GAS O2 CAPACITY 14.2 mL/dl (16-24); ARTERIAL BLOOD GAS O2 CONTENT 13.8 ML/dl (15-23); ARTERIAL BLOOD GAS PH 7.45 (7.35-7.45); CARBOXYHEMOGLOBIN 2.9 % (0.5-1.5); HHB 2.9 % (0-5); METHEMOGLOBIN 1.2 % (0.0-3.0)
[2017-01-07] MEDS ORDERED: Albuterol-Ipratrop 3 mg / 0.5 (3 ml) UD IH PRN (04:11)
[2017-01-07] MEDS ORDERED: Potassium Chloride 40 mEq/30 ml LIQ UD PO STA (04:16)
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
[2017-01-07] MEDS ORDERED: Pantoprazole 40 mg EC Tab PO SCH (06:00)
[2017-01-07 07:22] LABS: BASO # 0.01 K/mm3 (0.0-2.0); BASO % 0.1 % (0.0-3.0); EOS % 0.3 % (1.5-5.0); GRAN # 7.87 (1.4-6.5); GRAN % 90.2 % (50.0-68.0); HEMATOCRIT 39.4 % (36.0-48.0); LYMPH # 0.7 (1.2-3.4); LYMPH % 8.4 % (22.0-35.0); MEAN CELL VOLUME 90.6 fl (80.0-105.0); MEAN CORPUSCULAR HEMOGLOBIN 28.7 pg (25.0-35.0); MEAN CORPUSCULAR HGB CONC 31.7 g/dl (31.0-37.0); MEAN PLATELET VOLUME 8.8 fl (7.0-11.0); MONO # 0.1 (0.1-0.6); PLATELET COUNT 339 10^3/uL (120.0-450.0); RED CELL DISTRIBUTION WIDTH 13.8 % (11.5-14.5); WHITE BLOOD COUNT 8.7 10^3/ul (4.5-11.0)
[2017-01-07 07:41] LABS: ALB/GLOB RATIO 1.3 (1.1-1.8); ALKALINE PHOSPHATASE 51 U/L (38-126); ALT/SGPT 35 U/L (7-56); AST/SGOT 21 U/L (14-36); BILIRUBIN,TOTAL 0.9 mg/dL (0.2-1.3); BLOOD UREA NITROGEN 8 mg/dL (7-21); CALCIUM 9.1 mg/dL (8.4-10.5); CARBON DIOXIDE 30 mmol/L (21-33); CHLORIDE 104 mmol/L (98-107); GFR AFRICAN-AMERICAN > 60; GLUCOSE,RANDOM 103 mg/dL (70-110); MAGNESIUM 2.2 mg/dL (1.7-2.2); PHOSPHOROUS 1.8 mg/dL (2.5-4.5); POTASSIUM 3.9 mmol/L (3.6-5.0); SODIUM 139 mmol/L (132-148); TOTAL PROTEIN 6.7 g/dL (5.8-8.3)
[2017-01-07 07:59] VITALS: PULSE 71; RESP 16; TEMP 98; BMI 41.1
[2017-01-07] MEDS ORDERED: Albuterol-Ipratrop 3 mg / 0.5 (3 ml) UD IH SCH (08:00)
[2017-01-07 08:26] LABS: INR 1.12 (0.93-1.08); PARTIAL THROMBOPLASTIN TIME 31.6 Seconds (25.1-36.5)
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
--- NOTE | 2017-01-07 09:09 | RAD ---
HISTORY: cough COMPARISON: No prior. FINDINGS: LUNGS: No active pulmonary disease. PLEURA: No significant pleural effusion identified, no pneumothorax apparent. CARDIOVASCULAR: Normal. OSSEOUS STRUCTURES: No significant abnormalities. VISUALIZED UPPER ABDOMEN: Normal. OTHER FINDINGS: None. IMPRESSION: No active disease.
[2017-01-07 09:49] VITALS: BP 101/54; O2SAT 97
[2017-01-07] MEDS ORDERED: MethylPREDNISolone 40 mg Vial IVP SCH (10:00)
--- NOTE | 2017-01-07 10:16 | CARD ---
APPROVED REPORT EKG Measurement Heart [id number] OR [id number] [id number] <Conclusion> Normal sinus rhythm Normal ECG
[2017-01-07 10:36] LABS: ANISOCYTOSIS SLIGHT; NEUTROPHIL 91 % (50.0-70.0); PLATELET ESTIMATE NORMAL (NORMAL); TOXIC GRANULATION SLIGHT
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
[2017-01-08] MEDS ORDERED: cefTRIAXone 1 gm 1 GM/100 ML BAG IVPB SCH (10:00)
[2017-01-08] MEDS ORDERED: Azithromycin 500MG/NS 250ml 500 MG/250 ML BAG IVPB SCH (13:00)
== END 2017-01-07 12:52 | disposition left against medical advice (07) ==
LOC: ED 18:35 → ERH 01-07 03:29 → 5RSO 01-07 04:37
PROVIDERS: ADMIT Hospitalist; ATTEND Hospitalist
DX: J18.9 Pneumonia, unspecified organism (principal); J45.901 Unspecified asthma with (acute) exacerbation; J98.11 Atelectasis; D25.9 Leiomyoma of uterus, unspecified; N83.209 Unspecified ovarian cyst, unspecified side; G47.33 Obstructive sleep apnea (adult) (pediatric); Z79.899 Other long term (current) drug therapy; M17.11 Unilateral primary osteoarthritis, right knee; Z87.81 Personal history of (healed) traumatic fracture; Z88.6 Allergy status to analgesic agent; R40.2412 Glasgow coma scale score 13-15, at arrival to emergency department; F17.210 Nicotine dependence, cigarettes, uncomplicated
CPT/HCPCS: 36600; 70450; 70486; 71010; 71260; 72125; 73110; 74177; 80053; 81001; 82803; 83735; 84100; 84145; 84484; 85025; 85610; 85730; 86140; 87040; 93005; 94640; 94667; 96361; 96365; 96375; 96376; 99285; G0378; J0456; J0696; J1885; J2920; J2930; J7040; Q9967

== ENCOUNTER 2017-01-08 20:09 | Observation (INO) | payer MEDICAID, OTHER ==
[2017-01-08 20:33] VITALS: BMI 40.6
[2017-01-08 21:22] LABS: BASO # 0.01 K/mm3 (0.0-2.0); BASO % 0.1 % (0.0-3.0); EOS # 0.1 (0.0-0.7); EOS % 0.5 % (1.5-5.0); GRAN # 11.89 (1.4-6.5); GRAN % 68.1 % (50.0-68.0); HEMATOCRIT 35.5 % (36.0-48.0); LYMPH # 4.5 (1.2-3.4); LYMPH % 25.5 % (22.0-35.0); MEAN CORPUSCULAR HEMOGLOBIN 29.2 pg (25.0-35.0); MEAN CORPUSCULAR HGB CONC 32.1 g/dl (31.0-37.0); MEAN PLATELET VOLUME 8.8 fl (7.0-11.0); MONO % 5.8 % (1.0-6.0); RED CELL DISTRIBUTION WIDTH 14.4 % (11.5-14.5); WHITE BLOOD COUNT 17.5 10^3/ul (4.5-11.0)
[2017-01-08 21:28] LABS: INR 1.09 (0.93-1.08); PARTIAL THROMBOPLASTIN TIME 27.3 Seconds (25.1-36.5)
[2017-01-08 21:30] LABS: ALB/GLOB RATIO 1.3 (1.1-1.8); ALKALINE PHOSPHATASE 40 U/L (38-126); ALT/SGPT 24 U/L (7-56); AST/SGOT 17 U/L (14-36); BILIRUBIN,TOTAL 0.7 mg/dL (0.2-1.3); BLOOD UREA NITROGEN 12 mg/dL (7-21); CALCIUM 8.9 mg/dL (8.4-10.5); CARBON DIOXIDE 28 mmol/L (21-33); CHLORIDE 107 mmol/L (98-107); GFR AFRICAN-AMERICAN > 60; GLUCOSE,RANDOM 110 mg/dL (70-110); POTASSIUM 3.4 mmol/L (3.6-5.0); SODIUM 141 mmol/L (132-148); TOTAL PROTEIN 6.2 g/dL (5.8-8.3)
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
[2017-01-08] MEDS: Azithromycin 500MG/NS 250ml 500 MG/250 ML BAG IVPB SCH (22:52)
[2017-01-08] MEDS ORDERED: Potassium Chloride 20 mEq ER Tab PO ONE (23:22)
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
[2017-01-09 00:47] VITALS: RESP 20
[2017-01-09] MEDS ORDERED: Albuterol-Ipratrop 3 mg / 0.5 (3 ml) UD IH PRN (01:13)
[2017-01-09] MEDS: Albuterol-Ipratrop 3 mg / 0.5 (3 ml) UD IH SCH ×5 (01:23→15:23)
[2017-01-09] MEDS ORDERED: Sodium Chloride 0.9% 1,000 ML IV SCH (04:45)
[2017-01-09 07:42] LABS: BASO # 0.01 K/mm3 (0.0-2.0); BASO % 0.1 % (0.0-3.0); EOS # 0.1 (0.0-0.7); EOS % 1.2 % (1.5-5.0); GRAN # 6.22 (1.4-6.5); GRAN % 51.9 % (50.0-68.0); HEMATOCRIT 35.7 % (36.0-48.0); LYMPH # 4.7 (1.2-3.4); LYMPH % 39.4 % (22.0-35.0); MEAN CELL VOLUME 92.2 fl (80.0-105.0); MEAN CORPUSCULAR HEMOGLOBIN 28.4 pg (25.0-35.0); MEAN CORPUSCULAR HGB CONC 30.8 g/dl (31.0-37.0); MEAN PLATELET VOLUME 8.7 fl (7.0-11.0); MONO # 0.9 (0.1-0.6); MONO % 7.4 % (1.0-6.0); RED CELL DISTRIBUTION WIDTH 14.7 % (11.5-14.5)
[2017-01-09 08:07] LABS: ALB/GLOB RATIO 1.2 (1.1-1.8); ALKALINE PHOSPHATASE 41 U/L (38-126); ALT/SGPT 32 U/L (7-56); AST/SGOT 21 U/L (14-36); BILIRUBIN,TOTAL 0.9 mg/dL (0.2-1.3); BLOOD UREA NITROGEN 13 mg/dL (7-21); CALCIUM 8.8 mg/dL (8.4-10.5); CARBON DIOXIDE 29 mmol/L (21-33); CHLORIDE 108 mmol/L (98-107); GFR AFRICAN-AMERICAN > 60; GLUCOSE,RANDOM 80 mg/dL (70-110); SODIUM 140 mmol/L (132-148); TOTAL PROTEIN 5.8 g/dL (5.8-8.3)
--- NOTE | 2017-01-09 08:40 | RAD ---
HISTORY: h/o middle lobe collapse COMPARISON: Comparison is made to 01/07/2017 FINDINGS: LUNGS: No active pulmonary disease. PLEURA: No significant pleural effusion identified, no pneumothorax apparent. CARDIOVASCULAR: Normal. OSSEOUS STRUCTURES: No significant abnormalities. VISUALIZED UPPER ABDOMEN: Normal. OTHER FINDINGS: None. IMPRESSION: No active disease. No significant interval change since the previous exam noted.
[2017-01-09 09:24] VITALS: BP 117/74; PULSE 60; TEMP 98.3; O2SAT 98
[2017-01-09] MEDS ORDERED: MethylPREDNISolone 40 mg Vial IVP SCH (10:00)
[2017-01-09] MEDS ORDERED: Enoxaparin 40 mg Syringe SC SCH (10:00)
--- NOTE | 2017-01-09 10:12 | CARD ---
APPROVED REPORT EKG Measurement Heart [id number] <Conclusion> Normal sinus rhythm Normal ECG
[2017-01-09] MEDS: cefTRIAXone 1 gm 1 GM/100 ML BAG IVPB SCH ×2 (11:00→11:08)
[2017-01-09] MEDS: Azithromycin 500MG/NS 250ml 500 MG/250 ML BAG IVPB SCH ×2 (11:09→13:14)
--- NOTE | 2017-01-09 15:11 | CP.PCM.CON ---
History of Present Illness - History of Present Illness History of Present Illness: Patient is a 36 year old female with past medical history of Asthma, hx of intubation for asthma (22 days total, ~4 yrs prior), ABBI and arthritis who presented to the ED for evaluation and treatment of body aches and cough which started approximately 5-7 days ago. The patient was recently admitted and treated for acute asthma exacerbation and signed out against medical advice. Patient states that her baseline symptoms have not changed since admission. States that she is able to ambulate without overt difficulty or shortness of breath. Admits to chills and back pain. Denies fever, chest pain, blood in sputum, SOB abdominal pain, n/v, diarrhea, constipation, and urinary symptoms. 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 Grove Past Patient History - Infectious Disease Hx of Infectious Diseases: None - Tetanus Immunizations Tetanus Immunization: Unknown - Past Medical History & Family History Past Medical History?: Yes - Past Social History Smoking Status: Current Some Days Smoker - CARDIAC Hx Cardiac Disorders: No - PULMONARY Hx Asthma: Yes - NEUROLOGICAL Hx Neurological Disorder: No - HEENT Hx HEENT Problems: No - RENAL Hx Chronic Kidney Disease: No - ENDOCRINE/METABOLIC Hx Endocrine Disorders: No - HEMATOLOGICAL/ONCOLOGICAL Hx Blood Disorders: No - INTEGUMENTARY Hx Dermatological Problems: No - MUSCULOSKELETAL/RHEUMATOLOGICAL Hx Arthritis: Yes (R knee) - GASTROINTESTINAL Hx Gastrointestinal Disorders: No - GENITOURINARY/GYNECOLOGICAL Hx Genitourinary Disorders: Yes Other/Comment: ovarian cyst and uterine fibroid - PSYCHIATRIC Hx Depression: No Hx Substance Use: Yes (CANNABIS) - SURGICAL HISTORY Other/Comment: drained abscess x2, ovarian cyst and uterine fibroid removed 10/21 - ANESTHESIA Hx Anesthesia: Yes Hx Anesthesia Reactions: No Hx Malignant Hyperthermia: No Meds Allergies/Adverse Reactions: Allergies Allergy/AdvReac Type Severity Reaction Status Date / Time aspirin Allergy Intermediate SHORTNESS Verified 01/08/17 19:05 OF BREATH - Medications Medications: Current Medications Acetaminophen (Tylenol 325mg Tab) 650 mg PO Q6H PRN PRN Reason: Pain, Mild (1-3) Albuterol/Ipratropium (Duoneb 3 Mg/0.5 Mg (3 Ml) Ud) 3 ml IH [id number] [facility] Last Admin: 01/09/17 12:19 Dose: 3 ml Albuterol/Ipratropium (Duoneb 3 Mg/0.5 Mg (3 Ml) Ud) 3 ml IH Q2H PRN PRN Reason: Shortness of Breath Enoxaparin Sodium (Lovenox) 40 mg SC DAILY [facility] PRN Reason: Protocol Last Admin: 01/09/17 10:00 Dose: Not Given Ceftriaxone Sodium (Rocephin 1 Gram Ivpb) 1 gm in 100 mls @ 100 mls/hr IVPB DAILY [facility] PRN Reason: Protocol Last Admin: 01/09/17 11:08 Dose: 100 mls/hr Azithromycin (Zithromax 500mg In Ns) 500 mg in 250 mls @ 167 mls/hr IVPB DAILY [facility] PRN Reason: Protocol Last Admin: 01/09/17 13:14 Dose: 167 mls/hr Sodium Chloride (Sodium Chloride 0.9%) 1,000 mls @ 100 mls/hr IV .Q10H [facility] Last Admin: 01/09/17 06:15 Dose: 100 mls/hr Methylprednisolone (Solu-Medrol) 40 mg IVP Q12 [facility] Last Admin: 01/09/17 11:07 Dose: 40 mg Pantoprazole Sodium (Protonix Inj) 40 mg IVP DAILY [facility] Last Admin: 01/09/17 11:07 Dose: 40 mg Physical Exam - Additional Findings Additional findings: - Constitutional Appears: Non-toxic, No Acute Distress - Head Exam Head Exam: ATRAUMATIC, NORMAL INSPECTION, NORMOCEPHALIC - Eye Exam Eye Exam: EOMI, Normal appearance Pupil Exam: NORMAL ACCOMODATION - ENT Exam ENT Exam: Mucous Membranes Moist - Neck Exam Neck exam: Positive for: Full Rom - Respiratory Exam Respiratory Exam: Air exchange is adequate; NORMAL BREATHING PATTERN. absent: Rales, Rhonchi - Cardiovascular Exam Cardiovascular Exam: REGULAR RHYTHM, +S1, +S2 - GI/Abdominal Exam GI & Abdominal Exam: Normal Bowel Sounds, Soft. absent: Guarding, Rebound, Rigid, Tenderness - Extremities Exam Extremities exam: Positive for: normal inspection, pedal pulses present. Negative for: calf tenderness - Back Exam Back exam: NORMAL INSPECTION - Neurological Exam Neurological exam: Alert, Oriented x3 - Psychiatric Exam Psychiatric exam: Normal Affect, Normal Mood - Skin Skin Exam: Dry, Normal Color, Warm Results - Vital Signs Recent Vital Signs: Last Vital Signs Temp 98.3 F 01/09/17 07:30 Pulse 60 01/09/17 07:30 Resp 20 01/09/17 07:30 BP 117/74 01/09/17 07:30 Pulse Ox 98 01/09/17 07:30 - Labs Result Diagrams: 01/09/17 07:00 01/09/17 07:00 Labs: Laboratory Results - last 24 hr 01/09/17 01/09/17 01/09/17 07:00 07:00 07:00 WBC 12.0 H D RBC 3.87 Hgb 11.0 L Hct 35.7 L MCV 92.2 MCH 28.4 MCHC 30.8 L RDW 14.7 H Plt Count 313 MPV 8.7 Gran % 51.9 Lymph % (Auto) 39.4 H [place] % (Auto) 7.4 H Eos % (Auto) 1.2 L Baso % (Auto) 0.1 Gran # 6.22 Lymph # 4.7 H [place] # 0.9 H Eos # 0.1 Baso # 0.01 Sodium 140 Potassium 4.0 Chloride 108 H Carbon Dioxide 29 Anion Gap 7 L BUN 13 Creatinine 0.8 Est GFR ( Amer) > 60 Est GFR (Non-Af Amer) > 60 Random Glucose 80 Calcium 8.8 Total Bilirubin 0.9 AST 21 ALT 32 Alkaline Phosphatase 41 Total Protein 5.8 Albumin 3.2 Globulin 2.6 Albumin/Globulin Ratio 1.2 Procalcitonin < 0.05 L Assessment & Plan - Assessment and Plan (Free Text) Assessment: Patient is a 36 year old female with past medical history of Asthma, hx of intubation for asthma (22 days total, ~4 yrs prior), ABBI and arthritis who was admitted for evaluation and treatment of diffuse body pains and cough days. Plan: CT Chest Abnormality - Collapse of right middle lobe on previous visits CT of chest noted - Repeat CXR reviewed and appreciated- no active disease noted - Encourage ISS use - Possible superimposed pneumonia- continue outpatient antibiotics and follow up with pulmnologist outpatient Asthma exacerbation/History of ABBI - patient is saturating well without overt difficulty - outpatient medrol dose pack - follow up with pulmnologist outpatient Pulmonology team will sign off at this time. Thank you for the opportunity to participate in the care of this patient. Patient seen, case discussed with, and plan approved by attending physician, Dr. Negron.
[2017-01-09 15:14] LABS: URINE BILIRUBIN NEGATIVE (NEGATIVE); URINE BLOOD TRACE-INTACT (NEGATIVE); URINE GLUCOSE (UA) NEGATIVE (NEGATIVE); URINE KETONE NEGATIVE (NEGATIVE); URINE LEUKOCYTE ESTERASE NEGATIVE Leu/uL (NEGATIVE); URINE PROTEIN NEGATIVE mg/dL (<30 mg/dL); URINE UROBILINOGEN 0.2 E.U./dL (<1 E.U./dL)
[2017-01-09 15:16] LABS: URINE APPEARANCE CLEAR (CLEAR); URINE COLOR YELLOW (YELLOW)
[2017-01-09 15:33] LABS: URINE BACTERIA TRACE (NEG); URINE RBC 0 - 2 /hpf (0-2); URINE WBC 0 - 2 /hpf (0-6)
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
== END 2017-01-09 18:14 | disposition home or self-care (01) ==
LOC: ED 20:09 → ERH 22:08 → 5RSO 22:57
PROVIDERS: ADMIT Hospitalist; ATTEND Hospitalist
DX: J45.901 Unspecified asthma with (acute) exacerbation (principal); J98.19 Other pulmonary collapse; E87.6 Hypokalemia; G47.33 Obstructive sleep apnea (adult) (pediatric); M17.11 Unilateral primary osteoarthritis, right knee; F17.200 Nicotine dependence, unspecified, uncomplicated; D72.829 Elevated white blood cell count, unspecified; E66.01 Morbid (severe) obesity due to excess calories; Z68.41 Body mass index [BMI] 40.0-44.9, adult; Z88.6 Allergy status to analgesic agent; Z91.19 Patient's noncompliance with other medical treatment and regimen
CPT/HCPCS: 36415; 71010; 80053; 81001; 84145; 85025; 85610; 85730; 86850; 86900; 87040; 87086; 93005; 94640; 94660; 99283; C9113; G0378; J0456; J0696; J2920; J7040

== ENCOUNTER 2017-01-27 03:23 | Emergency (ER) | payer MEDICAID ==
[2017-01-27 03:24] VITALS: BMI 41.1
[2017-01-27 03:48] VITALS: RESP 18; TEMP 98.1; O2SAT 98
[2017-01-27] MEDS ORDERED: Albuterol-Ipratrop 3 mg / 0.5 (3 ml) UD IH STA (04:07)
[2017-01-27 04:42] LABS: BASO # 0.02 K/mm3 (0.0-2.0); BASO % 0.2 % (0.0-3.0); EOS % 0.1 % (1.5-5.0); GRAN # 9.66 (1.4-6.5); GRAN % 76.4 % (50.0-68.0); HEMATOCRIT 36.7 % (36.0-48.0); LYMPH # 2.1 (1.2-3.4); LYMPH % 16.9 % (22.0-35.0); MEAN CELL VOLUME 90.8 fl (80.0-105.0); MEAN CORPUSCULAR HEMOGLOBIN 29.5 pg (25.0-35.0); MEAN CORPUSCULAR HGB CONC 32.4 g/dl (31.0-37.0); MEAN PLATELET VOLUME 8.4 fl (7.0-11.0); MONO # 0.8 (0.1-0.6); MONO % 6.4 % (1.0-6.0); RED CELL DISTRIBUTION WIDTH 13.7 % (11.5-14.5); WHITE BLOOD COUNT 12.6 10^3/ul (4.5-11.0)
--- NOTE | 2017-01-27 04:43 | ED PDOC ---
Arrival/HPI - General Historian: Patient - History of Present Illness Time/Duration: 24 hours Symptom Onset: Sudden Symptom Course: Unchanged Quality: Aching Severity Level: 6 Activities at Onset: Rest, Light Context: Home - General Chief Complaint: Medical Clearance Time Seen by Provider: 01/27/17 04:09 - History of Present Illness Narrative History of Present Illness (Text): 01/27/17 04:49 Mrs. Finch is a 36 year old AAF with a past medical history significant for asthma and ABBI who presents to the [facility] ED with a chief complaint of chills, wheezing, mild nausea and left shoulder pain for the past 24 hours. Patient reports that last night she was out late with her friends and awoke this morning with left shoulder pain and chills. She reports that her shoulder pain is incidental and states that she thinks this is due to her sleeping on it in an uncomfortable position. She reports that the chills and wheezing have been going on since she awoke as well and that she has had to use her albuterol inhaler more frequently than usual. She denies fever, headache, ear/eye pain or discharge, changes in her vision, rhinorrhea, sore throat, chest pain, palpitations, SOB, cough, sputum, abdominal pain, vomiting, diarrhea, constipation, burning/pain with urination, vaginal discharge, rash or any numbness/tingling/weakness of any extremity. (Kenneth Cortez) Past Medical History - Provider Review Nursing Documentation Reviewed: Yes - Travel History Have you recently traveled outside [place] w/in the past 3 mons?: No - Past History Past History: Non-Contributing - Infectious Disease Hx of Infectious Diseases: None - Tetanus Immunization Tetanus Immunization: Unknown - Cardiac Hx Cardiac Disorders: No - Pulmonary Hx Asthma: Yes - Neurological Hx Neurological Disorder: No Other/Comment: nerve pain neck - HEENT Hx HEENT Disorder: No - Renal Hx Renal Disorder: No - Endocrine/Metabolic Hx Endocrine Disorders: No - Hematological/Oncological Hx Blood Disorders: No - Integumentary Hx Dermatological Disorder: No - Musculoskeletal/Rheumatological Hx Arthritis: Yes (mary knee) - Gastrointestinal Hx Gastrointestinal Disorders: No - Genitourinary/Gynecological Hx Genitourinary Disorders: Yes Other/Comment: ovarian cyst and uterine fibroid - Psychiatric Hx Psychophysiologic Disorder: No Hx Depression: No Hx Substance Use: Yes - Past Surgical History Past Surgical History: No Previous - Surgical History Other/Comment: drained abscess x2, ovarian cyst and uterine fibroid removed 10/21 - Anesthesia Hx Anesthesia: Yes Hx Anesthesia Reactions: No Hx Malignant Hyperthermia: No - Suicidal Assessment Feels Threatened In Home Enviroment: No Family/Social History - Physician Review Nursing Documentation Reviewed: Yes Family/Social History: No Known Family HX Smoking Status: Former Smoker Hx Alcohol Use: No Hx Substance Use: Yes Hx Substance Use Treatment: No Allergies/Home Meds Allergies/Adverse Reactions: Allergies aspirin Allergy (Intermediate, Verified 01/27/17 03:45) ANAPHYLAXIS "my throat swells and i get short of breath" Home Medications: Home Meds Medication Instructions Recorded Confirmed Albuterol/Ipratropium [Combivent 2 puff IH DAILY PRN 11/15/16 01/27/17 Respimat] Montelukast [Singulair] 10 mg PO HS 11/24/16 01/27/17 diaZEpam [Valium] 5 mg PO PRN PRN 11/24/16 01/27/17 Albuterol HFA [Ventolin HFA 90 0.09 mg IH PRN PRN 01/27/17 01/27/17 mcg/actuation (8 g)] Albuterol/Ipratropium [Duoneb 3 3 ml IH TID 01/27/17 01/27/17 MG/3 Ml-0.5 MG/3 Ml 3 Ml] Budesonide/Formoterol Fumarate 2 puff INH DAILY 01/27/17 01/27/17 [Symbicort 80-4.5 Mcg Inhaler] Methylprednisolone [Medrol Dose 40 mg PO DAILY 01/27/17 01/27/17 Pack (21 tabs)] Review of Systems - Physician Review All systems were reviewed & negative as marked: Yes - Review of Systems Constitutional: Other (Chills ). absent: Normal Eyes: Normal ENT: Normal Respiratory: Wheezing. absent: Normal, SOB, Cough, Sputum Cardiovascular: Normal. absent: Chest Pain, Palpitations, Syncope Gastrointestinal: Nausea. absent: Normal, Abdominal Pain, Constipation, Diarrhea, Vomiting Genitourinary Female: Normal. absent: Dysuria Musculoskeletal: Neck Pain (Left shoulder/trap). absent: Normal Skin: Normal. absent: Rash Neurological: Normal. absent: Headache Endocrine: Normal Hemo/Lymphatic: Normal Psychiatric: Normal Physical Exam Vital Signs Reviewed: Yes Temperature: Afebrile Blood Pressure: Normal Pulse: Regular Respiratory Rate: Normal Appearance: Positive for: Well-Appearing, Non-Toxic, Comfortable Pain Distress: None Mental Status: Positive for: Alert and Oriented X 3 - Systems Exam Head: Present: Atraumatic, Normocephalic Pupils: Present: PERRL Extroacular Muscles: Present: EOMI Conjunctiva: Present: Normal Mouth: Present: Moist Mucous Membranes Neck: Present: Normal Range of Motion, Paraspinal Tenderness (On left side), Trachea Midline. No: Meningeal Signs, MIDLINE TENDERNESS, JVD, Lymphadenopathy Respiratory/Chest: Present: Good Air Exchange, Wheezes (Scattered). No: Clear to Auscultation, Respiratory Distress, Accessory Muscle Use, Decreased Breath Sounds, Rales, Retracting, Rhonchi, Tachypneic Cardiovascular: Present: Regular Rate and Rhythm, Normal S1, S2, Peripheal Pulses Present. No: Murmurs, Irregular Rhythm, Tachycardic, Bradycardic Abdomen: Present: Normal Bowel Sounds. No: Tenderness, Distention, Peritoneal Signs, Rebound, Guarding Back: Present: Normal Inspection. No: CVA Tenderness, Midline Tenderness, Paraspinal Tenderness Upper Extremity: Present: Normal Inspection. No: Cyanosis, Edema Lower Extremity: Present: Normal Inspection. No: Edema Neurological: Present: GCS=15, CN II-XII Intact, Speech Normal Skin: Present: Warm, Dry, Normal Color. No: Rashes Psychiatric: Present: Alert, Oriented x 3, Normal Insight, Normal Concentration Vital Signs Temp Pulse Resp BP Pulse Ox 01/27/17 05:24 70 18 112/68 98 01/27/17 03:40 98.1 F 72 18 110/66 98 Medical Decision Making - Lab Interpretations I have reviewed the lab results: Yes - RAD Interpretation Work Order Clerk: ED Physician, Radiologist ED Course and Treatment: Patient Seen With Resident: In agreement with resident note which contains more details about the patient. Patient was seen and evaluated with resident. Came up with plan and treatment together. A 36 year old female with chills, wheezing, mild nausea and left shoulder pain. Additional HPI as noted by resident. On physical exam, patient has scattered wheezing and paraspinal tenderness on left side of neck. Ordered chest xray, labs and Urinalysis. Will give patient Duoneb. 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 and CAP 01/27/17 04:56 (Kenneth Cortez) - Lab Interpretations Lab Results: 01/27/17 04:25 01/27/17 04:30 Lab Results 01/27/17 04:30: Urine Opiates Screen Negative, Urine Methadone Screen Negative, Ur Barbiturates Screen Negative, Ur Phencyclidine Scrn Negative, Ur Amphetamines Screen Negative, U Benzodiazepines Scrn Positive, U Oth Cocaine Metabols Negative, U Cannabinoids Screen Positive H 01/27/17 04:30: Sodium 141, Potassium 3.6, Chloride 104, Carbon Dioxide 31, Anion Gap 10, BUN 9, Creatinine 0.7, Est GFR ( Amer) > 60, Est GFR (Non- Af Amer) > 60, Random Glucose 69 L, Calcium 9.6, Total Bilirubin 0.5, AST 35, ALT 26, Alkaline Phosphatase 58, Total Protein 7.1, Albumin 4.0, Globulin 3.1, Albumin/Globulin Ratio 1.3 01/27/17 04:30: Urine Color Yellow, Urine Appearance Clear, Urine pH 6.5, Ur Specific [place] 1.020, Urine Protein Negative, Urine Glucose (UA) Negative, Urine Ketones Negative, Urine Blood Trace-intact H, Urine Nitrate Negative, Urine Bilirubin Negative, Urine Urobilinogen 0.2, Ur Leukocyte Esterase Negative , Urine RBC 0 - 2, Urine WBC 0 - 2, Ur Epithelial Cells 4 - 5, Urine Bacteria Small 01/27/17 04:25: WBC 12.6 H, RBC 4.04, Hgb 11.9 L, Hct 36.7, MCV 90.8, MCH 29.5, MCHC 32.4, RDW 13.7, Plt Count 358, MPV 8.4, Gran % 76.4 H, Lymph % (Auto) 16.9 L, [place] % (Auto) 6.4 H, Eos % (Auto) 0.1 L, Baso % (Auto) 0.2, Gran # 9.66 H, Lymph # 2.1, [place] # 0.8 H, Eos # 0.0, Baso # 0.02 - RAD Interpretation Radiology Orders: 01/27/17 04:07 CHEST PORTABLE [RAD] Stat - Medication Orders Current Medication Orders: Discontinued Medications Albuterol/Ipratropium (Duoneb 3 Mg/0.5 Mg (3 Ml) Ud) 3 ml IH STAT STA Stop: 01/27/17 04:08 Last Admin: 01/27/17 04:30 Dose: 3 ml Disposition/Present on Arrival - Present on Arrival Any Indicators Present on Arrival: No History of DVT/PE: No History of Uncontrolled Diabetes: No Urinary Catheter: No History of Decub. Ulcer: No History Surgical Site Infection Following: Orthopedic Procedures - Disposition Have Diagnosis and Disposition been Completed?: Yes Disposition Time: 05:29 Patient Plan: Discharge - Disposition Diagnosis: Bronchitis Disposition: HOME/ ROUTINE Condition: STABLE Discharge Instructions (ExitCare): Acute Bronchitis (ED) Additional Instructions: Ms. Finch, thank you for letting us take care of you today. Your provider was Dr. Mccollum. You were treated for bronchitis. The emergency medical care you received today was directed at your acute symptoms. If you were prescribed any medication, please fill it and take as directed. It may take several days for your symptoms to resolve. Return to the Emergency Department if your symptoms worsen, do not improve, or if you have any other problems. Please contact your doctor or call one of the physicians/clinics you have been referred to that are listed on the Patient Visit Information form that is included in your discharge packet. Bring any paperwork you were given at discharge with you along with any medications you are taking to your follow up visit. Our treatment cannot replace ongoing medical care by a primary care provider (PCP) outside of the emergency department. PLEASE FOLLOW UP WITH YOUR PRIMARY CARE DOCTOR WITHIN ONE TO TWO WEEKS Thank you for allowing the [facility] team to be part of your care today. If you had an X-Ray or CT scan: A Radiologist will review the ED reading if any change in treatment is needed we will contact you. Prescriptions: Azithromycin [Z-Medhat] 250 mg PO DAILY #6 tab Oxycodone HCl/Acetaminophen [Endocet 10-325 mg Tablet] 1 each PO BID #10 tablet Referrals: Kim Grove MD [Primary Care Provider] - Follow up with primary Forms: [employer] (Tunisian)
[2017-01-27 05:14] LABS: ALB/GLOB RATIO 1.3 (1.1-1.8); ALKALINE PHOSPHATASE 58 U/L (38-126); ALT/SGPT 26 U/L (7-56); AST/SGOT 35 U/L (14-36); BILIRUBIN,TOTAL 0.5 mg/dL (0.2-1.3); BLOOD UREA NITROGEN 9 mg/dL (7-21); CALCIUM 9.6 mg/dL (8.4-10.5); CARBON DIOXIDE 31 mmol/L (21-33); CHLORIDE 104 mmol/L (98-107); GFR AFRICAN-AMERICAN > 60; GLUCOSE,RANDOM 69 mg/dL (70-110); POTASSIUM 3.6 mmol/L (3.6-5.0); SODIUM 141 mmol/L (132-148); TOTAL PROTEIN 7.1 g/dL (5.8-8.3)
[2017-01-27 05:30] LABS: PH,URINE 6.5 (4.7-8.0); URINE BILIRUBIN NEGATIVE (NEGATIVE); URINE BLOOD TRACE-INTACT (NEGATIVE); URINE GLUCOSE (UA) NEGATIVE (NEGATIVE); URINE KETONE NEGATIVE (NEGATIVE); URINE LEUKOCYTE ESTERASE NEGATIVE Leu/uL (NEGATIVE); URINE PROTEIN NEGATIVE mg/dL (<30 mg/dL); URINE UROBILINOGEN 0.2 E.U./dL (<1 E.U./dL)
[2017-01-27 05:33] LABS: URINE APPEARANCE CLEAR (CLEAR); URINE COLOR YELLOW (YELLOW)
[2017-01-27 05:35] LABS: URINE BACTERIA SMALL (NEG); URINE RBC 0 - 2 /hpf (0-2); URINE WBC 0 - 2 /hpf (0-6)
[2017-01-27 05:55] VITALS: BP 112/68; PULSE 70
--- NOTE | 2017-01-27 07:58 | RAD ---
HISTORY: Wheezing COMPARISON: 01/08/2017 FINDINGS: LUNGS: No consolidation. PLEURA: No significant pleural effusion identified, no pneumothorax apparent. CARDIOVASCULAR: Top-normal heart size Pulmonary vasculature appears top-normal. OSSEOUS STRUCTURES: No significant abnormalities. VISUALIZED UPPER ABDOMEN: Normal. OTHER FINDINGS: None. IMPRESSION: No active disease.
== END 2017-01-27 05:54 | disposition home or self-care (01) ==
LOC: ED 03:23
DX: J40 Bronchitis, not specified as acute or chronic (principal); G47.33 Obstructive sleep apnea (adult) (pediatric); Z87.891 Personal history of nicotine dependence

== ENCOUNTER 2017-03-08 10:44 | Observation (INO) | payer MEDICAID ==
[2017-03-08 10:46] VITALS: BMI 39.2
[2017-03-08] MEDS ORDERED: Albuterol-Ipratrop 3 mg / 0.5 (3 ml) UD IH STA ×3 (10:58→11:54)
--- NOTE | 2017-03-08 11:18 | ED PDOC ---
Arrival/HPI - General Historian: Patient - General Chief Complaint: Respiratory Distress Time Seen by Provider: 03/08/17 10:48 - History of Present Illness Narrative History of Present Illness (Text): 03/08/17 11:07 36yo female with PMhx of Asthma present with 3days history of nonproductive cough, wheezing, SOB. States she saw her PMD for the symptoms and was given Zpack and prednisone. States taking the medications without relieve. She saw her PMD again today and was referred to the ED. Report previous history of admission secondary to Asthma. Denies any intubation. Denies any other complaint. (Rashi Neal A) Past Medical History - Provider Review Nursing Documentation Reviewed: Yes - Past History Past History: Non-Contributing - Infectious Disease Hx of Infectious Diseases: None - Tetanus Immunization Tetanus Immunization: Unknown - Cardiac Hx Cardiac Disorders: No - Pulmonary Hx Asthma: Yes - Neurological Hx Neurological Disorder: No Other/Comment: nerve pain neck - HEENT Hx HEENT Disorder: No - Renal Hx Renal Disorder: No - Endocrine/Metabolic Hx Endocrine Disorders: No - Hematological/Oncological Hx Blood Disorders: No - Integumentary Hx Dermatological Disorder: No - Musculoskeletal/Rheumatological Hx Arthritis: Yes (mary knee) - Gastrointestinal Hx Gastrointestinal Disorders: No - Genitourinary/Gynecological Hx Genitourinary Disorders: Yes Other/Comment: ovarian cyst and uterine fibroid - Psychiatric Hx Psychophysiologic Disorder: No Hx Depression: No Hx Substance Use: Yes - Past Surgical History Past Surgical History: No Previous - Surgical History Other/Comment: drained abscess x2, ovarian cyst and uterine fibroid removed 10/21 - Anesthesia Hx Anesthesia: Yes Hx Anesthesia Reactions: No Hx Malignant Hyperthermia: No - Suicidal Assessment Feels Threatened In Home Enviroment: No Family/Social History - Physician Review Nursing Documentation Reviewed: Yes Family/Social History: Unknown Family HX Smoking Status: Former Smoker Hx Alcohol Use: No Hx Substance Use: Yes Hx Substance Use Treatment: No Allergies/Home Meds Allergies/Adverse Reactions: Allergies aspirin Allergy (Intermediate, Verified 03/08/17 10:48) ANAPHYLAXIS "my throat swells and i get short of breath" Home Medications: Home Meds Medication Instructions Recorded Confirmed Albuterol/Ipratropium [Combivent 2 puff IH DAILY PRN 11/15/16 03/08/17 Respimat] Montelukast [Singulair] 10 mg PO HS 11/24/16 03/08/17 diaZEpam [Valium] 5 mg PO PRN PRN 11/24/16 03/08/17 Albuterol HFA [Ventolin HFA 90 0.09 mg IH PRN PRN 01/27/17 03/08/17 mcg/actuation (8 g)] Albuterol/Ipratropium [Duoneb 3 3 ml IH TID 01/27/17 03/08/17 MG/3 Ml-0.5 MG/3 Ml 3 Ml] Budesonide/Formoterol Fumarate 2 puff INH DAILY 01/27/17 03/08/17 [Symbicort 80-4.5 Mcg Inhaler] Prednisone [Deltasone] 60 mg PO DAILY 03/08/17 03/08/17 Review of Systems - Physician Review All systems were reviewed & negative as marked: Yes - Review of Systems Constitutional: Normal Eyes: Normal ENT: Normal Respiratory: SOB, Cough, Wheezing Cardiovascular: Normal Gastrointestinal: Normal Genitourinary Female: Normal Musculoskeletal: Normal Skin: Normal Neurological: Normal Endocrine: Normal Hemo/Lymphatic: Normal Psychiatric: Normal Physical Exam Vital Signs Reviewed: Yes Temperature: Afebrile Blood Pressure: Normal Pulse: Regular Respiratory Rate: Other (In mild distress) Appearance: Positive for: Well-Appearing, Non-Toxic, Comfortable Pain Distress: None Mental Status: Positive for: Alert and Oriented X 3 - Systems Exam Head: Present: Atraumatic, Normocephalic Pupils: Present: PERRL Extroacular Muscles: Present: EOMI Conjunctiva: Present: Normal Mouth: Present: Moist Mucous Membranes Neck: Present: Normal Range of Motion Respiratory/Chest: Present: Clear to Auscultation, Good Air Exchange, Accessory Muscle Use, Wheezes (diffuse Expiratory wheeze), Decreased Breath Sounds. No: Respiratory Distress, Rales, Retracting, Rhonchi Cardiovascular: Present: Regular Rate and Rhythm, Normal S1, S2. No: Murmurs Abdomen: Present: Normal Bowel Sounds. No: Tenderness, Distention, Peritoneal Signs Back: Present: Normal Inspection Upper Extremity: Present: Normal Inspection. No: Cyanosis, Edema Lower Extremity: Present: Normal Inspection. No: Edema Neurological: Present: GCS=15, CN II-XII Intact, Speech Normal Skin: Present: Warm, Dry, Normal Color. No: Rashes Psychiatric: Present: Alert, Oriented x 3, Normal Insight, Normal Concentration Vital Signs Temp Pulse Resp BP Pulse Ox 03/08/17 16:30 77 18 127/89 99 03/08/17 11:36 20 98 03/08/17 10:45 98.1 F 92 H 24 144/82 97 Medical Decision Making ED Course and Treatment: 03/08/17 12:57 Patient with persistent expiratory wheezing and rhonchi, mild use of accessory muscle, despite maximal treatment. (Sabino Jean) 03/08/17 22:04 PT presented for stated history. She continued to have expiratory wheeze, stating that she still have SOB and chest tightness. She also have mild accessory muscle use on re evaluation. Mag sulfate ordered. Case was DW Dr. Daley and pt was admitted to her service. (Rashi Neal) - Lab Interpretations Lab Results: 03/08/17 11:25 03/08/17 11:25 Lab Results 03/08/17 11:25: Sodium 142, Potassium 3.7, Chloride 108 H, Carbon Dioxide 26, Anion Gap 12, BUN 10, Creatinine 0.7, Est GFR ( Amer) > 60, Est GFR (Non- Af Amer) > 60, Random Glucose 76, Calcium 9.3, Total Bilirubin 0.3, AST 18, ALT 28, Alkaline Phosphatase 40, Total Protein 6.3, Albumin 3.6, Globulin 2.7, Albumin/Globulin Ratio 1.3 03/08/17 11:25: PT 10.8, INR 0.94, APTT 28.5 03/08/17 11:25: WBC 11.8 H, RBC 4.21, Hgb 12.0, Hct 39.0, MCV 92.6, MCH 28.5, MCHC 30.8 L, RDW 14.2, Plt Count 355, MPV 8.6, Gran % 63.1, Lymph % (Auto) 24.2 , [place] % (Auto) 11.7 H, Eos % (Auto) 0.8 L, Baso % (Auto) 0.2, Gran # 7.44 H, Lymph # 2.9, [place] # 1.4 H, Eos # 0.1, Baso # 0.02 - RAD Interpretation Radiology Orders: 03/08/17 10:59 CHEST PORTABLE [RAD] Stat - Medication Orders Current Medication Orders: Acetaminophen (Tylenol 325mg Tab) 650 mg PO Q6H PRN PRN Reason: Pain, moderate (4-7) Albuterol/Ipratropium (Duoneb 3 Mg/0.5 Mg (3 Ml) Ud) 3 ml IH [id number] Last Admin: 03/08/17 16:42 Dose: 3 ml Albuterol/Ipratropium (Duoneb 3 Mg/0.5 Mg (3 Ml) Ud) 3 ml IH Q2H PRN PRN Reason: Shortness of Breath Methylprednisolone (Solu-Medrol) 40 mg IVP Q8 [facility] Last Admin: 03/08/17 15:08 Dose: IVP Administration Document 03/08/17 15:08 EQ (Rec: 03/08/17 15:08 EQ [id number]) Charges for Administration # of IVP Administrations 1 Montelukast Sodium (Singulair) 10 mg PO HS [facility] Oseltamivir Phosphate (Tamiflu Cap) 75 mg PO BID HUSAM PRN Reason: Protocol Stop: 03/13/17 16:38 Last Admin: 03/08/17 18:06 Dose: 75 mg Discontinued Medications Albuterol/Ipratropium (Duoneb 3 Mg/0.5 Mg (3 Ml) Ud) 3 ml IH STAT STA Stop: 03/08/17 10:59 Last Admin: 03/08/17 11:36 Dose: 3 ml Albuterol/Ipratropium (Duoneb 3 Mg/0.5 Mg (3 Ml) Ud) 3 ml IH STAT STA Stop: 03/08/17 11:43 Last Admin: 03/08/17 12:17 Dose: 3 ml Albuterol/Ipratropium (Duoneb 3 Mg/0.5 Mg (3 Ml) Ud) 3 ml IH STAT STA Stop: 03/08/17 11:55 Last Admin: 03/08/17 12:17 Dose: 3 ml Magnesium Sulfate 2 gm/ Sodium (Chloride) 104 mls @ 102 mls/hr IVPB ONCE ONE Stop: 03/08/17 13:50 Last Admin: 03/08/17 13:16 Dose: 102 mls/hr eMAR Start Stop Document 03/08/17 13:16 EQ (Rec: 03/08/17 13:16 EQ [id number]) Intravenous Solution Start Date 03/08/17 Start Time 13:16 Methylprednisolone (Solu-Medrol) 125 mg IVP STAT STA Stop: 03/08/17 10:59 Last Admin: 03/08/17 11:36 Dose: 125 mg IVP Administration Document 03/08/17 11:36 EQ (Rec: 03/08/17 11:36 EQ [id number]) Charges for Administration # of IVP Administrations 1 Oxycodone/Acetaminophen (Percocet 5/325 Mg Tab) 1 tab PO ONCE ONE Stop: 03/08/17 18:55 Disposition/Present on Arrival - Present on Arrival Any Indicators Present on Arrival: No History of DVT/PE: No History of Uncontrolled Diabetes: No Urinary Catheter: No History of Decub. Ulcer: No History Surgical Site Infection Following: Orthopedic Procedures - Disposition Have Diagnosis and Disposition been Completed?: Yes Disposition Time: 11:10 Patient Plan: Admission - Disposition Diagnosis: Asthma exacerbation Disposition: HOSPITALIZED Condition: FAIR
[2017-03-08 11:46] LABS: BASO # 0.02 K/mm3 (0.0-2.0); BASO % 0.2 % (0.0-3.0); EOS # 0.1 (0.0-0.7); EOS % 0.8 % (1.5-5.0); GRAN # 7.44 (1.4-6.5); GRAN % 63.1 % (50.0-68.0); LYMPH # 2.9 (1.2-3.4); LYMPH % 24.2 % (22.0-35.0); MEAN CELL VOLUME 92.6 fl (80.0-105.0); MEAN CORPUSCULAR HEMOGLOBIN 28.5 pg (25.0-35.0); MEAN CORPUSCULAR HGB CONC 30.8 g/dl (31.0-37.0); MEAN PLATELET VOLUME 8.6 fl (7.0-11.0); MONO # 1.4 (0.1-0.6); MONO % 11.7 % (1.0-6.0); RBC 4.21 10^6/uL (3.5-6.1); RED CELL DISTRIBUTION WIDTH 14.2 % (11.5-14.5); WHITE BLOOD COUNT 11.8 10^3/ul (4.5-11.0)
[2017-03-08 11:50] LABS: INR 0.94 (0.93-1.08); PARTIAL THROMBOPLASTIN TIME 28.5 Seconds (25.1-36.5); PROTHROMBIN TIME 10.8 SECONDS (9.4-12.5)
[2017-03-08 11:51] LABS: ALB/GLOB RATIO 1.3 (1.1-1.8); ALBUMIN 3.6 g/dL (3.0-4.8); ALT/SGPT 28 U/L (7-56); AST/SGOT 18 U/L (14-36); BLOOD UREA NITROGEN 10 mg/dL (7-21); CALCIUM 9.3 mg/dL (8.4-10.5); GFR AFRICAN-AMERICAN > 60; GFR NON-AFRICAN AMERICAN > 60
--- NOTE | 2017-03-08 12:39 | RAD ---
HISTORY: cough COMPARISON: 01/27/2017 FINDINGS: LUNGS: No active pulmonary disease. PLEURA: No significant pleural effusion identified, no pneumothorax apparent. CARDIOVASCULAR: Normal. OSSEOUS STRUCTURES: No significant abnormalities. VISUALIZED UPPER ABDOMEN: Normal. OTHER FINDINGS: None. IMPRESSION: No active disease.
[2017-03-08] MEDS ORDERED: Magnesium Sulfate 2 GM in Sodium Chloride 0.9% 100 ML IVPB ONE (12:49)
--- NOTE | 2017-03-08 13:37 | CP.PCM.HP ---
<Karlo Lerma - Last Filed: 03/08/17 14:00> History of Present Illness - History of Present Illness History of Present Illness: CC: SOB Subjective: Patient is a 36 year old female with past medical history of Asthma, hx of intubation for asthma (22 days total, ~4 yrs prior), ABBI and arthritis who presents for evaluation and treatment of SOB. States that she began experiencing the SOB 4 days ago associated with a nonproductive cough. States cough was productive today with clear sputum being produced. Admits to sick contact, her nephew, who is experiencing a respiratory infection. PMD prescribed prednisone and zpack which she has been compliant with over the past 3 days. Admits to baseline back and knee pain secondary to her arthritis. Denies headaches, dizziness, cp, palpitations, abdominal pain, urinary symptoms , changes in bowel habits. Allergies: Aspirin Medical Hx: asthma, obstructive sleep apnea confimred by sleep study, arthritis Surgical Hx: Ovarian cyst and fibroid removal (Sep 2015), Groin I&D Family Hx: Asthma Social Hx: Lives alone, quit tobacco use 4 years ago, soical ETOH use, denies illicit drug use PMD: Dr. Amor Garcia Physical Examination: - Constitutional Appears: Non-toxic, No Acute Distress - Head Exam Head Exam: ATRAUMATIC, NORMAL INSPECTION, NORMOCEPHALIC - Eye Exam Eye Exam: EOMI, Normal appearance Pupil Exam: NORMAL ACCOMODATION - ENT Exam ENT Exam: Mucous Membranes Moist - Neck Exam Neck exam: Positive for: Full Rom - Respiratory Exam Respiratory Exam: Expiratory Wheezes bilaterally , NORMAL BREATHING PATTERN. absent: Rales, Rhonchi - Cardiovascular Exam Cardiovascular Exam: REGULAR RHYTHM, +S1, +S2 - GI/Abdominal Exam GI & Abdominal Exam: Normal Bowel Sounds, Soft. absent: Guarding, Rebound, Rigid, Tenderness - Extremities Exam Extremities exam: Positive for: normal inspection, pedal pulses present. Negative for: calf tenderness - Back Exam Back exam: NORMAL INSPECTION - Neurological Exam Neurological exam: Patient is awake, alert, responds to verbal stimuli, answers questions appropriately, follows commands, and moves extremities past midline - Psychiatric Exam Psychiatric exam: Normal Affect, Normal Mood - Skin Skin Exam: Dry, Normal Color, Warm Assessment and Plan: Patient is a 36 year old female with past medical history of Asthma, hx of intubation for asthma (22 days total, ~4 yrs prior), ABBI and arthritis who presents for evaluation and treatment of SOB. Asthma exacerbation/History of ABBI - Duonebs q4H HUSAM, Duonebs q2H prn SOB - Continue Solu-medrol 40mg Q12H - no abx at this time- no fever, white count 11.8- will monitor closely - influenza screen pending - c/w home singular Prophylaxis - dvt ppx- scs - gi ppx- famotidine Patient seen, case discussed with, and plan approved by attending physician, Dr. Daley. Present on Admission - Present on Admission Any Indicators Present on Admission: No Past Patient History - Infectious Disease Hx of Infectious Diseases: None - Tetanus Immunizations Tetanus Immunization: Unknown - Past Medical History & Family History Past Medical History?: Yes - Past Social History Smoking Status: Former Smoker - CARDIAC Hx Cardiac Disorders: No - PULMONARY Hx Asthma: Yes - NEUROLOGICAL Hx Neurological Disorder: No Other/Comment: nerve pain neck - HEENT Hx HEENT Problems: No - RENAL Hx Chronic Kidney Disease: No - ENDOCRINE/METABOLIC Hx Endocrine Disorders: No - HEMATOLOGICAL/ONCOLOGICAL Hx Blood Disorders: No - INTEGUMENTARY Hx Dermatological Problems: No - MUSCULOSKELETAL/RHEUMATOLOGICAL Hx Arthritis: Yes (mary knee) - GASTROINTESTINAL Hx Gastrointestinal Disorders: No - GENITOURINARY/GYNECOLOGICAL Hx Genitourinary Disorders: Yes Other/Comment: ovarian cyst and uterine fibroid - PSYCHIATRIC Hx Psychophysiologic Disorder: No Hx Depression: No Hx Substance Use: Yes - SURGICAL HISTORY Other/Comment: drained abscess x2, ovarian cyst and uterine fibroid removed 10/21 - ANESTHESIA Hx Anesthesia: Yes Hx Anesthesia Reactions: No Hx Malignant Hyperthermia: No Meds Allergies/Adverse Reactions: Allergies Allergy/AdvReac Type Severity Reaction Status Date / Time aspirin Allergy Intermediate ANAPHYLAXIS Verified 03/08/17 10:48 Results - Vital Signs Recent Vital Signs: Last Vital Signs Temp 98.1 F 03/08/17 10:45 Pulse 92 H 03/08/17 10:45 Resp 20 03/08/17 11:36 BP 144/82 03/08/17 10:45 Pulse Ox 98 03/08/17 11:36 - Labs Result Diagrams: 03/08/17 11:25 03/08/17 11:25 <Leonard Daley - Last Filed: 03/08/17 15:04> Results - Vital Signs Recent Vital Signs: Last Vital Signs Temp 98.1 F 03/08/17 10:45 Pulse 92 H 03/08/17 10:45 Resp 20 03/08/17 11:36 BP 144/82 03/08/17 10:45 Pulse Ox 98 03/08/17 11:36 - Labs Result Diagrams: 03/08/17 11:25 03/08/17 11:25 Attending/Attestation - Attestation I have fully participated in the care of the patient.: Yes I have reviewed all pertinent clinical information: Yes Notes (Text): 03/08/17 14:59 Patient was seen and examined with biomedical engineering supervisor. Agreed with resident assessment and plan. 36 yo F with PMH of Asthma, SP intubation for asthma 4 yrs back, Obesity, sleep apnea and arthritis is admitted with cough and worsening dyspnea, she is having expiratory wheezing on physical examination, Chest X ray is negative for Pneumonia.We will start patient on nebulization,IV steroid and will get influenza screen. Management plan was discussed in detail with patient Education was provided.
[2017-03-08] MEDS: MethylPREDNISolone 40 mg Vial IVP SCH ×2 (15:08→22:36)
[2017-03-08] MEDS ORDERED: Albuterol-Ipratrop 3 mg / 0.5 (3 ml) UD IH PRN (15:19)
[2017-03-08] MEDS: Albuterol-Ipratrop 3 mg / 0.5 (3 ml) UD IH SCH ×2 (16:42→22:32)
[2017-03-08] MEDS ORDERED: Oxycodone/Acetaminophen 5/325 mg Tab PO ONE (18:54)
[2017-03-09] MEDS ORDERED: Oxycodone/Acetaminophen 5/325 mg Tab PO STA (00:55)
[2017-03-09 07:14] LABS: GRAN # 9.29 (1.4-6.5); GRAN % 86.4 % (50.0-68.0); HEMOGLOBIN 11.5 g/dL (12.0-16.0); LYMPH # 0.8 (1.2-3.4); LYMPH % 7.5 % (22.0-35.0); MEAN CELL VOLUME 92.1 fl (80.0-105.0); MEAN CORPUSCULAR HEMOGLOBIN 28.5 pg (25.0-35.0); MONO # 0.7 (0.1-0.6); MONO % 6.1 % (1.0-6.0); RBC 4.03 10^6/uL (3.5-6.1); RED CELL DISTRIBUTION WIDTH 14.1 % (11.5-14.5); WHITE BLOOD COUNT 10.8 10^3/ul (4.5-11.0)
[2017-03-09 07:17] LABS: ALB/GLOB RATIO 1.3 (1.1-1.8); ALBUMIN 3.5 g/dL (3.0-4.8); ALT/SGPT 27 U/L (7-56); AST/SGOT 22 U/L (14-36); BLOOD UREA NITROGEN 12 mg/dL (7-21); CALCIUM 9.1 mg/dL (8.4-10.5); GFR AFRICAN-AMERICAN > 60; GFR NON-AFRICAN AMERICAN > 60
[2017-03-09] MEDS: MethylPREDNISolone 40 mg Vial IVP SCH ×2 (07:33→08:02)
[2017-03-09 07:51] VITALS: BP 138/88; PULSE 72; RESP 18; TEMP 99; O2SAT 97
[2017-03-09] MEDS: Albuterol-Ipratrop 3 mg / 0.5 (3 ml) UD IH SCH ×2 (07:58→13:02)
--- NOTE | 2017-03-09 11:07 | CP.PCM.DIS ---
<Karlo Lerma - Last Filed: 03/09/17 11:19> Provider - Provider Date of Admission: 03/08/17 13:02 Attending physician: Leonard Daley MD Time Spent in preparation of Discharge (in minutes): 45 Diagnosis - Discharge Diagnosis (1) Asthma exacerbation Status: Acute Priority: Medium (2) Influenza Status: Acute Priority: Medium (3) Arthritis Status: Chronic Priority: Medium Hospital Course - Lab Results Lab Results: Most Recent Lab Values WBC 10.8 10^3/ul (4.5-11.0) 03/09/17 06:20 RBC 4.03 10^6/uL (3.5-6.1) 03/09/17 06:20 Hgb 11.5 g/dL (12.0-16.0) L 03/09/17 06:20 Hct 37.1 % (36.0-48.0) 03/09/17 06:20 MCV 92.1 fl (80.0-105.0) 03/09/17 06:20 MCH 28.5 pg (25.0-35.0) 03/09/17 06:20 MCHC 31.0 g/dl (31.0-37.0) 03/09/17 06:20 RDW 14.1 % (11.5-14.5) 03/09/17 06:20 Plt Count 356 10^3/uL (120.0-450.0) 03/09/17 06:20 MPV 9.0 fl (7.0-11.0) 03/09/17 06:20 Gran % 86.4 % (50.0-68.0) H 03/09/17 06:20 Lymph % (Auto) 7.5 % (22.0-35.0) L 03/09/17 06:20 Archuleta % (Auto) 6.1 % (1.0-6.0) H 03/09/17 06:20 Eos % (Auto) 0.0 % (1.5-5.0) L 03/09/17 06:20 Baso % (Auto) 0.0 % (0.0-3.0) 03/09/17 06:20 Gran # 9.29 (1.4-6.5) H 03/09/17 06:20 Lymph # 0.8 (1.2-3.4) L 03/09/17 06:20 Archuleta # 0.7 (0.1-0.6) H 03/09/17 06:20 Eos # 0.0 (0.0-0.7) 03/09/17 06:20 Baso # 0.00 K/mm3 (0.0-2.0) 03/09/17 06:20 PT 10.8 SECONDS (9.4-12.5) 03/08/17 11:25 INR 0.94 (0.93-1.08) 03/08/17 11:25 APTT 28.5 Seconds (25.1-36.5) 03/08/17 11:25 Sodium 140 mmol/L (132-148) 03/09/17 06:20 Potassium 4.3 mmol/L (3.6-5.0) 03/09/17 06:20 Chloride 107 mmol/L (98-107) 03/09/17 06:20 Carbon Dioxide 26 mmol/L (21-33) 03/09/17 06:20 Anion Gap 12 (10-20) 03/09/17 06:20 BUN 12 mg/dL (7-21) 03/09/17 06:20 Creatinine 0.7 mg/dl (0.7-1.2) 03/09/17 06:20 Est GFR ( Amer) > 60 03/09/17 06:20 Est GFR (Non-Af Amer) > 60 03/09/17 06:20 Random Glucose 113 mg/dL (70-110) H 03/09/17 06:20 Calcium 9.1 mg/dL (8.4-10.5) 03/09/17 06:20 Total Bilirubin 0.2 mg/dL (0.2-1.3) 03/09/17 06:20 AST 22 U/L (14-36) 03/09/17 06:20 ALT 27 U/L (7-56) 03/09/17 06:20 Alkaline Phosphatase 39 U/L (38-126) 03/09/17 06:20 Total Protein 6.0 g/dL (5.8-8.3) 03/09/17 06:20 Albumin 3.5 g/dL (3.0-4.8) 01/09/18 06:20 Globulin 2.6 gm/dL 03/09/17 06:20 Albumin/Globulin Ratio 1.3 (1.1-1.8) 03/09/17 06:20 Influenza Typ A,B (EIA) Pos for influenza a (NEGATIVE) H 03/08/17 15:28 - Hospital Course Hospital Course: Patient is a 36 year old female with past medical history of Asthma, hx of intubation for asthma (22 days total, ~4 yrs prior), ABBI and arthritis who presents for evaluation and treatment of SOB. With the use of physical examinations, lab work, and imaging the patient was diagnosed with and treated for asthma exacebation, influenza infection, along with the patients chronic medical conditions. During their hospital stay the patient underwent a chest xray which was reviewed, appreciated, and utilized in the management of the patients clinical course. Patient was treated with duonebs, IV steroids, tamiflu amongst other empiric/therapeutic medications. At this time the patient is medically stable for discharge. Patient understands and appreciates discharge plan. Patient instructed to follow up with primary care physicians within three to five days from discharge. Furthermore, the patient is instructed to take medications as prescribed and to return to emergency room for evaluation of intractable headache, fever, chills, dizziness, chest pain, shortness of breath, abdominal pain, nausea, vomiting, diarrhea, constipation, and urinary symptoms. This is a brief summary of the patients hospital course. Please see patient chart for full details. Discharge Exam - Additional Findings Additional findings: - Constitutional Appears: Non-toxic, No Acute Distress - Head Exam Head Exam: ATRAUMATIC, NORMAL INSPECTION, NORMOCEPHALIC - Eye Exam Eye Exam: EOMI, Normal appearance Pupil Exam: NORMAL ACCOMODATION - ENT Exam ENT Exam: Mucous Membranes Moist - Neck Exam Neck exam: Positive for: Full Rom - Respiratory Exam Respiratory Exam: NORMAL BREATHING PATTERN. absent: Rales, Rhonchi - Cardiovascular Exam Cardiovascular Exam: REGULAR RHYTHM, +S1, +S2 - GI/Abdominal Exam GI & Abdominal Exam: Normal Bowel Sounds, Soft. absent: Guarding, Rebound, Rigid, Tenderness - Extremities Exam Extremities exam: Positive for: normal inspection, pedal pulses present. Negative for: calf tenderness - Back Exam Back exam: NORMAL INSPECTION - Neurological Exam Neurological exam: Patient is awake, alert, responds to verbal stimuli, answers questions appropriately, follows commands, and moves extremities past midline - Psychiatric Exam Psychiatric exam: Normal Affect, Normal Mood - Skin Skin Exam: Dry, Normal Color, Warm Discharge Plan - Discharge Medications Prescriptions: Oseltamivir [Tamiflu Cap] 75 mg PO BID 4 Days cap predniSONE [predniSONE Tab] See Taper PO DAILY 8 Days tab - Follow Up Plan Condition: GOOD Disposition: HOME/ ROUTINE Patient education suggested?: Yes Instructions: Asthma (DC), Pneumococcal Vaccine for Adults (DC), Influenza (DC) , Influenza Vaccine (DC) Additional Instructions: Patient Instructions: 1. Take medications as prescribed. continue tamiflu and prednisone (please see taper and resume daily prednisone dose as per your primary care physician once prednisone taper is completed) 2. Follow up with primary care physician three to five days from discharge. 3. Wear respiratory droplet precaution mask for 24 hours after leaving the hospital. 4. Return to the emergency room for evaluation of intractable headache, fever, chills, dizziness, chest pain, shortness of breath, abdominal pain, nausea, vomiting, diarrhea, constipation, and urinary symptoms. <Leonard Dlaey - Last Filed: 03/09/17 16:46> Provider - Provider Date of Admission: 03/08/17 13:02 Attending physician: Leonard Daley MD Hospital Course - Lab Results Lab Results: Most Recent Lab Values WBC 10.8 10^3/ul (4.5-11.0) 03/09/17 06:20 RBC 4.03 10^6/uL (3.5-6.1) 03/09/17 06:20 Hgb 11.5 g/dL (12.0-16.0) L 03/09/17 06:20 Hct 37.1 % (36.0-48.0) 03/09/17 06:20 MCV 92.1 fl (80.0-105.0) 03/09/17 06:20 MCH 28.5 pg (25.0-35.0) 03/09/17 06:20 MCHC 31.0 g/dl (31.0-37.0) 03/09/17 06:20 RDW 14.1 % (11.5-14.5) 03/09/17 06:20 Plt Count 356 10^3/uL (120.0-450.0) 03/09/17 06:20 MPV 9.0 fl (7.0-11.0) 03/09/17 06:20 Gran % 86.4 % (50.0-68.0) H 03/09/17 06:20 Lymph % (Auto) 7.5 % (22.0-35.0) L 03/09/17 06:20 Archuleta % (Auto) 6.1 % (1.0-6.0) H 03/09/17 06:20 Eos % (Auto) 0.0 % (1.5-5.0) L 03/09/17 06:20 Baso % (Auto) 0.0 % (0.0-3.0) 03/09/17 06:20 Gran # 9.29 (1.4-6.5) H 03/09/17 06:20 Lymph # 0.8 (1.2-3.4) L 03/09/17 06:20 Archuleta # 0.7 (0.1-0.6) H 03/09/17 06:20 Eos # 0.0 (0.0-0.7) 03/09/17 06:20 Baso # 0.00 K/mm3 (0.0-2.0) 03/09/17 06:20 PT 10.8 SECONDS (9.4-12.5) 03/08/17 11:25 INR 0.94 (0.93-1.08) 03/08/17 11:25 APTT 28.5 Seconds (25.1-36.5) 03/08/17 11:25 Sodium 140 mmol/L (132-148) 03/09/17 06:20 Potassium 4.3 mmol/L (3.6-5.0) 03/09/17 06:20 Chloride 107 mmol/L (98-107) 03/09/17 06:20 Carbon Dioxide 26 mmol/L (21-33) 03/09/17 06:20 Anion Gap 12 (10-20) 03/09/17 06:20 BUN 12 mg/dL (7-21) 03/09/17 06:20 Creatinine 0.7 mg/dl (0.7-1.2) 03/09/17 06:20 Est GFR ( Amer) > 60 03/09/17 06:20 Est GFR (Non-Af Amer) > 60 03/09/17 06:20 Random Glucose 113 mg/dL (70-110) H 03/09/17 06:20 Calcium 9.1 mg/dL (8.4-10.5) 03/09/17 06:20 Total Bilirubin 0.2 mg/dL (0.2-1.3) 03/09/17 06:20 AST 22 U/L (14-36) 03/09/17 06:20 ALT 27 U/L (7-56) 03/09/17 06:20 Alkaline Phosphatase 39 U/L (38-126) 03/09/17 06:20 Total Protein 6.0 g/dL (5.8-8.3) 03/09/17 06:20 Albumin 3.5 g/dL (3.0-4.8) 03/09/17 06:20 Globulin 2.6 gm/dL 03/09/17 06:20 Albumin/Globulin Ratio 1.3 (1.1-1.8) 03/09/17 06:20 Influenza Typ A,B (EIA) Pos for influenza a (NEGATIVE) H 03/08/17 15:28 Attending/Attestation - Attestation I have personally seen and examined this patient.: Yes I have fully participated in the care of the patient.: Yes I have reviewed all pertinent clinical information, including history, physical exam and plan: Yes Notes (Text): 03/09/17 16:41 Patient was seen and examined with medical case manager. Agreed with resident assessment and plan. 36 yo F with PMH of Asthma, SP intubation for asthma 4 yrs back, Obesity, sleep apnea and arthritis was admitted with cough and worsening dyspnea, she was having expiratory wheezing on physical examination, Chest X ray was negative for Pneumonia.Patient was treated with nebulization,IV steroid .She was found to influenza infection and was started on Oseltamivir.Patient has responded well to the treatment.Her cough and dyspnea has improved.She will be discharged home with tapering dose of Prednisone and Oseltamivir. Management plan was discussed in detail with patient Education was provided.
== END 2017-03-09 13:35 | disposition home or self-care (01) ==
LOC: ED 10:44 → ERH 13:02 → 5RNO 03-09 00:22
PROVIDERS: ADMIT Internal Medicine; ATTEND Internal Medicine
DX: J45.901 Unspecified asthma with (acute) exacerbation (principal); J11.1 Influenza due to unidentified influenza virus with other respiratory manifestations; M19.90 Unspecified osteoarthritis, unspecified site; G47.33 Obstructive sleep apnea (adult) (pediatric); E66.9 Obesity, unspecified; Z68.39 Body mass index [BMI] 39.0-39.9, adult; Z87.891 Personal history of nicotine dependence; Z88.6 Allergy status to analgesic agent
CPT/HCPCS: 36415; 71045; 80053; 85025; 85610; 85730; 87040; 87804; 94640; 96374; 96375; 96376; 99285; G0378; J2920; J2930; J3475

== ENCOUNTER 2017-03-22 09:16 | Emergency (ER) | payer MEDICAID ==
[2017-03-22 09:17] VITALS: BMI 39.2
[2017-03-22 09:33] VITALS: TEMP 98.3
--- NOTE | 2017-03-22 09:33 | ED PDOC ---
Arrival/HPI - General Time Seen by Provider: 03/22/17 09:32 Historian: Patient - History of Present Illness Narrative History of Present Illness (Text): 03/22/17 09:33 37 y/o female, pmh including asthma/ovarian cyst, allergic to nsaid, c/o Lt. flank pain radiating to the LLQ x 2 days. Pt. stated that she has Lt. flank pain radiating to the LLQ region, associated with nausea/vomiting, no palpitation, no dizziness, no numbness or tingling, no vaginal bleeding or discharge, no palpitation, no other medical or psychological complaints. Past Medical History - Provider Review Nursing Documentation Reviewed: Yes - Past History Past History: Non-Contributing - Infectious Disease Hx of Infectious Diseases: None - Tetanus Immunization Tetanus Immunization: Unknown - Cardiac Hx Cardiac Disorders: No - Pulmonary Hx Asthma: Yes - Neurological Hx Neurological Disorder: No Other/Comment: nerve pain neck - HEENT Hx HEENT Disorder: No - Renal Hx Renal Disorder: No - Endocrine/Metabolic Hx Endocrine Disorders: No - Hematological/Oncological Hx Blood Disorders: No - Integumentary Hx Dermatological Disorder: No - Musculoskeletal/Rheumatological Hx Arthritis: Yes (mary knee) Hx Falls: No - Gastrointestinal Hx Gastrointestinal Disorders: No - Genitourinary/Gynecological Hx Genitourinary Disorders: Yes Other/Comment: ovarian cyst and uterine fibroid - Psychiatric Hx Psychophysiologic Disorder: No Hx Depression: No Hx Substance Use: Yes (Marijuana) - Past Surgical History Past Surgical History: No Previous - Surgical History Other/Comment: drained abscess x2, ovarian cyst and uterine fibroid removed 10/21 - Anesthesia Hx Anesthesia: Yes Hx Anesthesia Reactions: No Hx Malignant Hyperthermia: No - Suicidal Assessment Feels Threatened In Home Enviroment: No Family/Social History - Physician Review Nursing Documentation Reviewed: Yes Family/Social History: Unknown Family HX Smoking Status: Former Smoker Hx Alcohol Use: Yes (Socially) Hx Substance Use: Yes (Marijuana) Hx Substance Use Treatment: No Allergies/Home Meds Allergies/Adverse Reactions: Allergies aspirin Allergy (Intermediate, Verified 03/22/17 09:30) ANAPHYLAXIS "my throat swells and i get short of breath" Home Medications: Home Meds Medication Instructions Recorded Confirmed Albuterol/Ipratropium [Combivent 2 puff IH DAILY PRN 09/17/17 01/22/18 Respimat] Montelukast [Singulair] 10 mg PO HS 11/24/16 03/22/17 diaZEpam [Valium] 5 mg PO PRN PRN 11/24/16 03/22/17 Albuterol HFA [Ventolin HFA 90 0.09 mg IH PRN PRN 01/27/17 03/22/17 mcg/actuation (8 g)] Albuterol/Ipratropium [Duoneb 3 3 ml IH TID 01/27/17 03/22/17 MG/3 Ml-0.5 MG/3 Ml 3 Ml] Budesonide/Formoterol Fumarate 2 puff INH DAILY 01/27/17 03/22/17 [Symbicort 80-4.5 Mcg Inhaler] Oxycodone HCl/Acetaminophen 1 each PO BID PRN 03/22/17 03/22/17 [Endocet 10-325 mg Tablet] Review of Systems - Review of Systems Constitutional: absent: Fatigue, Fevers Eyes: absent: Vision Changes ENT: absent: Hearing Changes Respiratory: absent: SOB, Cough Cardiovascular: absent: Chest Pain Gastrointestinal: Abdominal Pain, Nausea, Vomiting. absent: Diarrhea Genitourinary Female: absent: Dysuria, Frequency, Vaginal Bleeding, Vaginal Discharge Musculoskeletal: absent: Arthralgias, Back Pain Skin: absent: Rash, Pruritis Neurological: absent: Headache, Dizziness Psychiatric: absent: Anxiety, Depression Physical Exam Vital Signs Reviewed: Yes Vital Signs Temp Pulse Resp BP Pulse Ox 03/22/17 12:46 80 17 131/69 97 03/22/17 09:32 98.3 F 76 16 133/74 96 Temperature: Afebrile Blood Pressure: Normal Pulse: Regular Respiratory Rate: Normal Appearance: Positive for: Well-Appearing, Non-Toxic Pain Distress: Moderate Mental Status: Positive for: Alert and Oriented X 3 - Systems Exam Head: Present: Atraumatic, Normocephalic Pupils: Present: PERRL Extroacular Muscles: Present: EOMI Conjunctiva: Present: Normal Mouth: Present: Moist Mucous Membranes Neck: Present: Normal Range of Motion Respiratory/Chest: Present: Clear to Auscultation, Good Air Exchange. No: Respiratory Distress, Accessory Muscle Use Cardiovascular: Present: Regular Rate and Rhythm, Normal S1, S2. No: Murmurs Abdomen: Present: Tenderness (+Lt. flank and LLQ region), Normal Bowel Sounds. No: Distention, Peritoneal Signs Back: Present: Normal Inspection. No: Midline Tenderness, Paraspinal Tenderness Upper Extremity: Present: Normal Inspection. No: Cyanosis, Edema Lower Extremity: Present: Normal Inspection. No: Edema Neurological: Present: GCS=15, Speech Normal, Motor Func Grossly Intact, Gait Normal, Memory Normal Skin: Present: Warm, Dry, Normal Color. No: Rashes Psychiatric: Present: Alert, Oriented x 3, Normal Insight, Normal Concentration Medical Decision Making ED Course and Treatment: 03/22/17 10:02 -Labs/ua/lipase -CT abdomen and pelvis -Transvaginal sonogram -IVF/morphine/zofran -Observe and reassess 03/22/17 13:02 -Urine hcg is negative -Labs are non-significant except K+ 3.4 (potassium chloride 20meq po ordered). -UA show no UTI -CT abdomen and pelvis show: No acute abdominal or pelvic abnormality. Mild sigmoid diverticulosis without CT evidence for acute diverticulitis. -Sonogram show 2.1 cm simple cyst in the right ovary. No evidence of ovarian torsion. 2.2 cm complicated cyst in the left ovary. No evidence of ovarian torsion. -Pt. feels pain free now, no signs of ovarian torsion, has her own obgyn that she will follow up with. -I checked the [facility] site and she has multiple controlled substance prescription. -Discharge home with acetaminophen, follow up with your own pmd and obgyn within 2 days for follow up and pain control for follow up, return to the ER for any new or worsening signs or symptoms. - Lab Interpretations Lab Results: 03/22/17 10:16 03/22/17 10:16 Lab Results 03/22/17 10:16: WBC 10.8, RBC 4.32, Hgb 12.8, Hct 40.1, MCV 92.8, MCH 29.6, MCHC 31.9, RDW 13.5, Plt Count 311, MPV 8.6, Gran % 44.9 L, Lymph % (Auto) 44.8 H, [place] % (Auto) 8.0 H, Eos % (Auto) 1.9, Baso % (Auto) 0.4, Gran # 4.86, Lymph # 4.9 H, [place] # 0.9 H, Eos # 0.2, Baso # 0.04 03/22/17 10:16: Sodium 140, Potassium 3.4 L, Chloride 106, Carbon Dioxide 27, Anion Gap 10, BUN 11, Creatinine 0.7, Est GFR ( Amer) > 60, Est GFR (Non- Af Amer) > 60, Random Glucose 83, Calcium 8.9, Magnesium 1.7, Total Bilirubin 0.4, AST 14 D, ALT 24, Alkaline Phosphatase 41, Total Protein 6.1, Albumin 3.3 , Globulin 2.8, Albumin/Globulin Ratio 1.2, Lipase 23 03/22/17 10:16: Urine Color Yellow, Urine Appearance Clear, Urine pH 6.0, Ur Specific [place] 1.025, Urine Protein Negative, Urine Glucose (UA) Negative, Urine Ketones Negative, Urine Blood Trace-intact H, Urine Nitrate Negative, Urine Bilirubin Negative, Urine Urobilinogen 0.2, Ur Leukocyte Esterase Negative , Urine RBC 0 - 2, Urine WBC 0 - 2, Ur Epithelial Cells 3 - 4, Urine Bacteria Trace I have reviewed the lab results: Yes - RAD Interpretation Radiology Orders: 03/22/17 09:58 ABD & PELVIS IV CONTRAST ONLY [CT] Stat TRANSVAGINAL [US] Stat PROCEDURE: CT Abdomen and Pelvis with contrast HISTORY: Lt. flank pain radiating to LLQ COMPARISON: 01/06/2017. TECHNIQUE: CT scan of the abdomen and pelvis was performed after intravenous administration of contrast. Oral contrast was not administered. Coronal and sagittal reformatted images were obtained. Contrast dose: 100 mL Omnipaque 350 Radiation dose: Total exam DLP = 1033.26 mGy-cm. This CT exam was performed using one or more of the following dose reduction techniques: Automated exposure control, adjustment of the mA and/or kV according to patient size, and/or use of iterative reconstruction technique. FINDINGS: LOWER THORAX: The lung bases are clear. LIVER: The liver is normal in size and there is homogeneous enhancement. No gross lesion or ductal dilatation. GALLBLADDER AND BILE DUCTS: There are no calcified gallstones. PANCREAS: Normal in size with homogeneous enhancement. No gross lesion or ductal dilatation. SPLEEN: Normal in size and appearance. ADRENALS: No discrete nodule. KIDNEYS AND URETERS: Both kidneys are normal in size and there is homogeneous enhancement. No hydronephrosis. No solid mass. VASCULATURE: No aortic aneurysm. BOWEL: The small bowel loops are normal in caliber. No bowel dilatation or obstruction. No gross mural thickening. There is mild sigmoid diverticulosis without CT evidence for acute diverticulitis. APPENDIX: Normal appendix. PERITONEUM: No free fluid. No free air. LYMPH NODES: No enlarged lymph nodes. BLADDER: Partially decompressed. REPRODUCTIVE: The uterus is normal in size. BONES: No acute fracture. OTHER FINDINGS: None. IMPRESSION: No acute abdominal or pelvic abnormality. Mild sigmoid diverticulosis without CT evidence for acute diverticulitis. -------- HISTORY: LLQ pain, r/o torsion COMPARISON: CT abdomen and pelvis performed the same day. TECHNIQUE: Transvaginal pelvic ultrasound was performed. FINDINGS: UTERUS: Measures 7.4 x 2.9 x 3.1 cm. Anteverted, normal in size and appearance. No fibroid or other mass lesion seen. ENDOMETRIUM: Measures 10 mm in diameter. Hit region is however within normal limits. CERVIX: No cervical abnormality identified. RIGHT OVARY: Measures 3.9 x 2.3 x 2.9 cm. No solid mass. Normal flow. There is a 2.1 x 1.5 x 1.8 cm and a 1.2 x 0.5 x 1.0 cm cyst. LEFT OVARY: Measures 3.6 x 2.9 x 3.6 cm. No solid mass. Normal flow. There is a 2.2 x 2.0 x 2.1 cm complicated cyst. FREE FLUID: No significant free fluid noted. OTHER FINDINGS: None. IMPRESSION: 1. 2.1 cm simple cyst in the right ovary. No evidence of ovarian torsion. 2. 2.2 cm complicated cyst in the left ovary. No evidence of ovarian torsion. Health Promotion Officer: Radiologist - Medication Orders Current Medication Orders: Discontinued Medications Sodium Chloride (Sodium Chloride 0.9%) 1,000 mls @ 999 mls/hr IV .Q1H1M STA Stop: 03/22/17 10:58 Last Admin: 03/22/17 10:17 Dose: 999 mls/hr eMAR Start Stop Document 03/22/17 10:17 SE (Rec: 03/22/17 10:17 SE [id number]) Intravenous Solution Start Date 03/22/17 Start Time 10:17 Morphine Sulfate (Morphine) 4 mg IVP STAT STA Stop: 03/22/17 09:59 Last Admin: 03/22/17 10:18 Dose: 4 mg MAR Pain Assessment Document 03/22/17 10:18 SE (Rec: 03/22/17 10:18 [id number] Pain Reassessment Is this a pain reassessment? No Sleep Is patient sleeping during reassessment? No Presence of Pain Presence of Pain Yes Pain Scale Used Pain Scale Used Numeric IVP Administration Document 03/22/17 10:18 SE (Rec: 03/22/17 10:18 SE [id number]) Charges for Administration # of IVP Administrations 1 Ondansetron HCl (Zofran Inj) 4 mg IVP STAT STA Stop: 03/22/17 09:59 Last Admin: 03/22/17 10:18 Dose: 4 mg IVP Administration Document 03/22/17 10:18 SE (Rec: 03/22/17 10:18 [id number] Charges for Administration # of IVP Administrations 1 Potassium Chloride (K-Dur 20 Meq Er Tab) 20 meq PO STAT STA Stop: 03/22/17 11:10 Last Admin: 03/22/17 11:51 Dose: 20 meq Comments: late admin, pt was in u/s - PA / UNIX MANAGER / Resident Statement MD/DO has reviewed & agrees with the documentation as recorded. Disposition/Present on Arrival - Present on Arrival Any Indicators Present on Arrival: No History of DVT/PE: No History of Uncontrolled Diabetes: No Urinary Catheter: No History of Decub. Ulcer: No History Surgical Site Infection Following: None - Disposition Have Diagnosis and Disposition been Completed?: Yes Diagnosis: Ovarian cyst Disposition: HOME/ ROUTINE Disposition Time: 13:05 Patient Plan: Discharge Patient Problems: Current Active Problems Problem Status Onset Diverticulosis Acute Condition: IMPROVED Additional Instructions: -Discharge home with acetaminophen, follow up with your own pmd and obgyn within 2 days for follow up and pain control for follow up, return to the ER for any new or worsening signs or symptoms. Prescriptions: Acetaminophen [Acetaminophen Extra Strength] 500 mg PO QID PRN #24 tablet PRN Reason: Other Ondansetron [Zofran] 4 mg PO Q8H PRN #10 tab PRN Reason: Nausea/Vomiting Referrals: Aditya Howard DO [Primary Care Provider] - Follow up with primary Nicki Talley MD [Staff Provider] - Follow up with primary Forms: [employer] ([place]), WORK NOTE
[2017-03-22] MEDS ORDERED: Sodium Chloride 0.9% 1,000 ML IV STA (09:58)
[2017-03-22] MEDS ORDERED: Morphine 4 mg/ml ISec IVP STA (09:58)
[2017-03-22 10:23] LABS: BASO # 0.04 K/mm3 (0.0-2.0); BASO % 0.4 % (0.0-3.0); EOS # 0.2 (0.0-0.7); EOS % 1.9 % (1.5-5.0); GRAN # 4.86 (1.4-6.5); GRAN % 44.9 % (50.0-68.0); HEMOGLOBIN 12.8 g/dL (12.0-16.0); LYMPH # 4.9 (1.2-3.4); LYMPH % 44.8 % (22.0-35.0); MEAN CELL VOLUME 92.8 fl (80.0-105.0); MEAN CORPUSCULAR HEMOGLOBIN 29.6 pg (25.0-35.0); MEAN CORPUSCULAR HGB CONC 31.9 g/dl (31.0-37.0); MEAN PLATELET VOLUME 8.6 fl (7.0-11.0); MONO # 0.9 (0.1-0.6); RBC 4.32 10^6/uL (3.5-6.1); RED CELL DISTRIBUTION WIDTH 13.5 % (11.5-14.5); URINE BILIRUBIN NEGATIVE (NEGATIVE); URINE BLOOD TRACE-INTACT (NEGATIVE); URINE GLUCOSE (UA) NEGATIVE (NEGATIVE); URINE LEUKOCYTE ESTERASE NEGATIVE Leu/uL (NEGATIVE); URINE NITRATE NEGATIVE (NEGATIVE); URINE PROTEIN NEGATIVE mg/dL (<30 mg/dL); URINE UROBILINOGEN 0.2 E.U./dL (<1 E.U./dL); WHITE BLOOD COUNT 10.8 10^3/ul (4.5-11.0)
[2017-03-22 10:24] LABS: URINE APPEARANCE CLEAR (CLEAR); URINE COLOR YELLOW (YELLOW)
[2017-03-22 10:27] LABS: URINE RBC 0 - 2 /hpf (0-2); URINE WBC 0 - 2 /hpf (0-6)
[2017-03-22 10:28] LABS: URINE BACTERIA TRACE (NEG)
[2017-03-22 10:34] LABS: ALB/GLOB RATIO 1.2 (1.1-1.8); ALBUMIN 3.3 g/dL (3.0-4.8); ALT/SGPT 24 U/L (7-56); AST/SGOT 14 U/L (14-36); BLOOD UREA NITROGEN 11 mg/dL (7-21); CALCIUM 8.9 mg/dL (8.4-10.5); GFR AFRICAN-AMERICAN > 60; GFR NON-AFRICAN AMERICAN > 60; LIPASE 23 U/L (23-300); MAGNESIUM 1.7 mg/dL (1.7-2.2)
[2017-03-22] MEDS ORDERED: Iohexol 350 MG/100 ML VIAL ONE (10:39)
[2017-03-22] MEDS ORDERED: Potassium Chloride 20 mEq ER Tab PO STA (11:09)
--- NOTE | 2017-03-22 12:05 | CT ---
PROCEDURE: CT Abdomen and Pelvis with contrast HISTORY: Lt. flank pain radiating to LLQ COMPARISON: 01/06/2017. TECHNIQUE: CT scan of the abdomen and pelvis was performed after intravenous administration of contrast. Oral contrast was not administered. Coronal and sagittal reformatted images were obtained. Contrast dose: 100 mL Omnipaque 350 Radiation dose: Total exam DLP = 1033.26 mGy-cm. This CT exam was performed using one or more of the following dose reduction techniques: Automated exposure control, adjustment of the mA and/or kV according to patient size, and/or use of iterative reconstruction technique. FINDINGS: LOWER THORAX: The lung bases are clear. LIVER: The liver is normal in size and there is homogeneous enhancement. No gross lesion or ductal dilatation. GALLBLADDER AND BILE DUCTS: There are no calcified gallstones. PANCREAS: Normal in size with homogeneous enhancement. No gross lesion or ductal dilatation. SPLEEN: Normal in size and appearance. ADRENALS: No discrete nodule. KIDNEYS AND URETERS: Both kidneys are normal in size and there is homogeneous enhancement. No hydronephrosis. No solid mass. VASCULATURE: No aortic aneurysm. BOWEL: The small bowel loops are normal in caliber. No bowel dilatation or obstruction. No gross mural thickening. There is mild sigmoid diverticulosis without CT evidence for acute diverticulitis. APPENDIX: Normal appendix. PERITONEUM: No free fluid. No free air. LYMPH NODES: No enlarged lymph nodes. BLADDER: Partially decompressed. REPRODUCTIVE: The uterus is normal in size. BONES: No acute fracture. OTHER FINDINGS: None. IMPRESSION: No acute abdominal or pelvic abnormality. Mild sigmoid diverticulosis without CT evidence for acute diverticulitis.
--- NOTE | 2017-03-22 12:33 | US ---
HISTORY: LLQ pain, r/o torsion COMPARISON: CT abdomen and pelvis performed the same day. TECHNIQUE: Transvaginal pelvic ultrasound was performed. FINDINGS: UTERUS: Measures 7.4 x 2.9 x 3.1 cm. Anteverted, normal in size and appearance. No fibroid or other mass lesion seen. ENDOMETRIUM: Measures 10 mm in diameter. Hit region is however within normal limits. CERVIX: No cervical abnormality identified. RIGHT OVARY: Measures 3.9 x 2.3 x 2.9 cm. No solid mass. Normal flow. There is a 2.1 x 1.5 x 1.8 cm and a 1.2 x 0.5 x 1.0 cm cyst. LEFT OVARY: Measures 3.6 x 2.9 x 3.6 cm. No solid mass. Normal flow. There is a 2.2 x 2.0 x 2.1 cm complicated cyst. FREE FLUID: No significant free fluid noted. OTHER FINDINGS: None. IMPRESSION: 1. 2.1 cm simple cyst in the right ovary. No evidence of ovarian torsion. 2. 2.2 cm complicated cyst in the left ovary. No evidence of ovarian torsion.
[2017-03-22 12:47] VITALS: BP 131/69; PULSE 80; RESP 17; O2SAT 97
== END 2017-03-22 13:28 | disposition home or self-care (01) ==
LOC: ED 09:16
DX: N83.202 Unspecified ovarian cyst, left side (principal); Z87.891 Personal history of nicotine dependence
CPT/HCPCS: 74177; 76830; 80053; 81001; 83690; 83735; 85025; 96374; 96375; 99285; J2270; J2405; J7040; Q9967

== ENCOUNTER 2017-04-06 03:22 | Emergency (ER) | payer MEDICAID ==
[2017-04-06 03:23] VITALS: BMI 39.2
[2017-04-06 03:49] VITALS: PULSE 75; RESP 18; TEMP 98.3
[2017-04-06] MEDS ORDERED: Sodium Chloride 0.9% 1,000 ML IV STA (04:05)
[2017-04-06] MEDS ORDERED: Albuterol 0.083% Inhal Sol (2.5 mg/3 mL) UD INH STA (04:06)
[2017-04-06] MEDS ORDERED: Albuterol-Ipratrop 3 mg / 0.5 (3 ml) UD IH STA (04:06)
--- NOTE | 2017-04-06 04:13 | ED PDOC ---
Arrival/HPI - General Chief Complaint: Medical Clearance Time Seen by Provider: 04/06/17 03:58 Historian: Patient - History of Present Illness Narrative History of Present Illness (Text): 04/06/17 04:12 A 37 year old female, whose past medical history includes asthma, and allergies to Aspirin, presents to the emergency department complaining of body aches, sore tongue, headache, dizziness and fatigue that developed 14:00 yesterday. Patient denies any other complaints at this time. Symptom Onset: Sudden Symptom Course: Unchanged Activities at Onset: Rest Context: Home Past Medical History - Provider Review Nursing Documentation Reviewed: Yes - Past History Past History: Non-Contributing - Infectious Disease Hx of Infectious Diseases: None - Tetanus Immunization Tetanus Immunization: Unknown - Cardiac Hx Cardiac Disorders: No - Pulmonary Hx Asthma: Yes - Neurological Hx Neurological Disorder: No Other/Comment: nerve pain neck - HEENT Hx HEENT Disorder: No - Renal Hx Renal Disorder: No - Endocrine/Metabolic Hx Endocrine Disorders: No - Hematological/Oncological Hx Blood Disorders: No - Integumentary Hx Dermatological Disorder: No - Musculoskeletal/Rheumatological Hx Arthritis: Yes (mary knee) Hx Falls: No - Gastrointestinal Hx Gastrointestinal Disorders: No - Genitourinary/Gynecological Hx Genitourinary Disorders: Yes Other/Comment: ovarian cyst and uterine fibroid - Psychiatric Hx Psychophysiologic Disorder: No Hx Depression: No Hx Substance Use: Yes (Marijuana) - Past Surgical History Past Surgical History: No Previous - Surgical History Other/Comment: drained abscess x2, ovarian cyst and uterine fibroid removed 10/21 ectopic - Anesthesia Hx Anesthesia: Yes Hx Anesthesia Reactions: No Hx Malignant Hyperthermia: No - Suicidal Assessment Feels Threatened In Home Enviroment: No Family/Social History - Physician Review Nursing Documentation Reviewed: Yes Family/Social History: No Known Family HX Smoking Status: Current Some Days Smoker Hx Alcohol Use: Yes (Socially) Hx Substance Use: Yes (Marijuana) Hx Substance Use Treatment: No Allergies/Home Meds Allergies/Adverse Reactions: Allergies aspirin Allergy (Intermediate, Verified 04/06/17 03:49) ANAPHYLAXIS "my throat swells and i get short of breath" Home Medications: Home Meds Medication Instructions Recorded Confirmed Albuterol/Ipratropium [Combivent 2 puff IH DAILY PRN 11/15/16 04/06/17 Respimat] Montelukast [Singulair] 10 mg PO HS 11/24/16 04/06/17 diaZEpam [Valium] 5 mg PO PRN PRN 11/24/16 04/06/17 Albuterol HFA [Ventolin HFA 90 0.09 mg IH PRN PRN 01/27/17 04/06/17 mcg/actuation (8 g)] Albuterol/Ipratropium [Duoneb 3 3 ml IH TID 01/27/17 04/06/17 MG/3 Ml-0.5 MG/3 Ml 3 Ml] Budesonide/Formoterol Fumarate 2 puff INH DAILY 01/27/17 04/06/17 [Symbicort 80-4.5 Mcg Inhaler] Oxycodone HCl/Acetaminophen 1 each PO BID PRN 03/22/17 04/06/17 [Endocet 10-325 mg Tablet] Review of Systems - Physician Review All systems were reviewed & negative as marked: Yes - Review of Systems Constitutional: Fatigue, Other (body aches) ENT: Other (sore tongue) Neurological: Headache, Dizziness Physical Exam Vital Signs Reviewed: Yes Vital Signs Temp Pulse Resp BP Pulse Ox 04/06/17 03:41 98.3 F 75 18 115/73 97 Temperature: Afebrile Blood Pressure: Normal Pulse: Regular Respiratory Rate: Normal Appearance: Positive for: Well-Appearing, Non-Toxic, Comfortable Pain Distress: None Mental Status: Positive for: Alert and Oriented X 3 - Systems Exam Head: Present: Atraumatic, Normocephalic Pupils: Present: PERRL Extroacular Muscles: Present: Other (horizontal nystagmus) Conjunctiva: Present: Normal Mouth: Present: Moist Mucous Membranes Neck: Present: Normal Range of Motion Respiratory/Chest: Present: Wheezes. No: Respiratory Distress, Accessory Muscle Use Cardiovascular: Present: Regular Rate and Rhythm, Normal S1, S2. No: Murmurs Abdomen: Present: Normal Bowel Sounds. No: Tenderness, Distention, Peritoneal Signs Back: Present: Normal Inspection Upper Extremity: Present: Normal Inspection. No: Cyanosis, Edema Lower Extremity: Present: Normal Inspection. No: Edema Neurological: Present: GCS=15, CN II-XII Intact, Speech Normal Skin: Present: Warm, Dry, Normal Color. No: Rashes Psychiatric: Present: Alert, Oriented x 3, Normal Insight, Normal Concentration Medical Decision Making ED Course and Treatment: 04/06/17 04:10 Impression: A 37 year old female with body aches, sore tongue, headache, dizziness and fatigue. Plan: -- EKG -- CT head -- chest xray -- labs -- Antivert, IV fluids, Albuterol, Duoneb -- Reassess and disposition Prior Visits: Notes and results from previous visits were reviewed. Patient was last seen in the emergency department on 03/22/17 for evaluation of left flank pain radiating to LLQ. Progress Notes: 04/06/17 04:27 EKG: Ordered, reviewed, and independently interpreted the EKG. Rate : 62 BPM Rhythm : NSR Interpretation : Normal intervals, normal axis CT Head Without Intravenous Contrast IMPRESSION: 1. No definite acute intracranial abnormality. Dictated and Authenticated by: Cheko Reinoso MD 04/06/2017 5:00 AM Eastern Time ([place] & [place]) 04/06/17 05:42 Chest xray No active disease, as read by me. - Lab Interpretations Lab Results: 04/06/17 04:18 04/06/17 04:18 Lab Results 04/06/17 04:30: Urine Color yellow, Urine Appearance Clear, Urine pH 6.5, Ur Specific Sledge 1.020, Urine Protein Negative, Urine Glucose (UA) Negative, Urine Ketones Negative, Urine Blood Negative, Urine Nitrate Negative, Urine Bilirubin Negative, Urine Urobilinogen 0.2, Ur Leukocyte Esterase Negative 04/06/17 04:18: Sodium 143, Potassium 4.0, Chloride 107, Carbon Dioxide 27, Anion Gap 13, BUN 11, Creatinine 0.7, Est GFR ( Amer) > 60, Est GFR (Non- Af Amer) > 60, Random Glucose 90, Calcium 9.5, Total Bilirubin 0.4, AST 33, ALT 23, Alkaline Phosphatase 61, Lactate Dehydrogenase 518, Total Creatine Kinase 111, Troponin I < 0.01, Total Protein 6.5, Albumin 3.6, Globulin 2.9, Albumin/ Globulin Ratio 1.3 04/06/17 04:18: PT 11.4, INR 1.00 04/06/17 04:18: Influenza Typ A,B (EIA) Negative for flu a/b, Grp A Beta Strep Ag Negative 04/06/17 04:18: WBC 10.2, RBC 4.25, Hgb 12.4, Hct 38.7, MCV 91.1, MCH 29.2, MCHC 32.0, RDW 13.0, Plt Count 391, MPV 8.3, Gran % 59.4, Lymph % (Auto) 29.1, Bradley % (Auto) 7.7 H, Eos % (Auto) 3.5, Baso % (Auto) 0.3, Gran # 6.03, Lymph # ( Auto) 3.0, Bradley # (Auto) 0.8 H, Eos # (Auto) 0.4, Baso # (Auto) 0.03 I have reviewed the lab results: Yes - RAD Interpretation Radiology Orders: 04/06/17 04:06 HEAD W/O CONTRAST [CT] Stat CHEST TWO VIEWS (PA/LAT) [RAD] Stat - EKG Interpretation Interpreted by ED Physician: Yes Type: 12 lead EKG - Medication Orders Current Medication Orders: Discontinued Medications Acetaminophen (Tylenol 325mg Tab) 975 mg PO STAT STA Stop: 04/06/17 04:11 Last Admin: 04/06/17 04:15 Dose: 975 mg MAR Pain/Vitals Document 04/06/17 04:15 AD (Rec: 04/06/17 04:58 AD [id number]) Location Pain Location Body Site Generalized Intensity 7 Scale Used Numeric Pain Behavior Facial Grimacing Albuterol Sulfate (Albuterol 0.083% Inhal Anna (2.5 Mg/3 Ml) Ud) 2.5 mg INH STAT STA Stop: 04/06/17 04:07 Last Admin: 04/06/17 04:15 Dose: 2.5 mg Albuterol/Ipratropium (Duoneb 3 Mg/0.5 Mg (3 Ml) Ud) 3 ml IH STAT STA Stop: 04/06/17 04:07 Last Admin: 04/06/17 04:15 Dose: 3 ml Sodium Chloride (Sodium Chloride 0.9%) 1,000 mls @ 999 mls/hr IV .Q1H1M STA Stop: 04/06/17 05:05 Last Admin: 04/06/17 04:15 Dose: 999 mls/hr eMAR Start Stop Document 04/06/17 04:15 AD (Rec: 04/06/17 04:59 AD [id number]) Intravenous Solution Start Date 04/06/17 Start Time 04:15 Meclizine HCl (Antivert) 25 mg PO STAT STA Stop: 04/06/17 04:06 Last Admin: 04/06/17 04:15 Dose: 25 mg Methylprednisolone (Solu-Medrol) 125 mg IVP STAT STA Stop: 04/06/17 04:10 Last Admin: 04/06/17 04:15 Dose: 125 mg IVP Administration Document 04/06/17 04:15 AD (Rec: 04/06/17 04:58 AD [id number]) Charges for Administration # of IVP Administrations 1 - PA / SOCIAL INSURANCE ADVISER / Resident Statement MD/DO has reviewed & agrees with the documentation as recorded. - Scribe Statement The provider has reviewed the documentation as recorded by the Bethany Bruno Provider Scribe Attestation: All medical record entries made by the Scribe were at my direction and personally dictated by me. I have reviewed the chart and agree that the record accurately reflects my personal performance of the history, physical exam, medical decision making, and the department course for this patient. I have also personally directed, reviewed, and agree with the discharge instructions and disposition. Disposition/Present on Arrival - Present on Arrival Any Indicators Present on Arrival: No History of DVT/PE: No History of Uncontrolled Diabetes: No Urinary Catheter: No History of Decub. Ulcer: No History Surgical Site Infection Following: None - Disposition Have Diagnosis and Disposition been Completed?: Yes Diagnosis: Viral labyrinthitis syndrome Disposition: HOME/ ROUTINE Disposition Time: 05:37 Patient Plan: Discharge Patient Problems: Current Active Problems Problem Status Onset Viral labyrinthitis syndrome Acute Condition: GOOD Discharge Instructions (ExitCare): Meniere Disease (ED), Viral Syndrome (ED) Additional Instructions: Arminda- Sorry that you are not feeling well. Tylenol for fever or body aches. Antivert for dizziness, Plenty of water and clear liquids, return to us if worse , follow up with your doctor later this week. Corey- Dr. Kapil Carrera Prescriptions: Meclizine [Antivert] 12.5 mg PO TID #30 tab Forms: [employer] (Maltese)
[2017-04-06 04:30] LABS: BASO # 0.03 K/mm3 (0.0-2.0); BASO % 0.3 % (0.0-3.0); EOS # 0.4 (0.0-0.7); EOS % 3.5 % (1.5-5.0); GRAN # 6.03 (1.4-6.5); GRAN % 59.4 % (50.0-68.0); HEMOGLOBIN 12.4 g/dL (12.0-16.0); LYMPH % 29.1 % (22.0-35.0); MEAN CELL VOLUME 91.1 fl (80.0-105.0); MEAN CORPUSCULAR HEMOGLOBIN 29.2 pg (25.0-35.0); MEAN PLATELET VOLUME 8.3 fl (7.0-11.0); MONO # 0.8 (0.1-0.6); MONO % 7.7 % (1.0-6.0); RBC 4.25 10^6/uL (3.5-6.1); WHITE BLOOD COUNT 10.2 10^3/ul (4.5-11.0)
[2017-04-06 04:45] LABS: PROTHROMBIN TIME 11.4 SECONDS (9.4-12.5)
[2017-04-06 04:54] LABS: TROPONIN I < 0.01 ng/mL
[2017-04-06 04:56] LABS: INFLUENZA A B NEGATIVE FOR FLU A/B (NEGATIVE)
--- NOTE | 2017-04-06 05:00 | CT ---
EXAM: CT Head Without Intravenous Contrast CLINICAL HISTORY: 37 years old, female; Signs and symptoms; Dizziness; Additional info: Dizzy TECHNIQUE: Axial computed tomography images of the head/brain without intravenous contrast. All CT scans at this facility use one or more dose reduction techniques, viz.: automated exposure control; ma/kV adjustment per patient size (including targeted exams where dose is matched to indication; i.e. head); or iterative reconstruction technique. Coronal and sagittal reformatted images were created and reviewed. COMPARISON: CT - HEAD W/O CONTRAST 2017-01-06 21:51 FINDINGS: Brain: No intracranial hemorrhage. No mass. No definite edema. Ventricles: No hydrocephalus. Bones/joints: No acute fracture. Soft tissues: Unremarkable. Sinuses: No acute sinusitis. Mastoid air cells: No mastoid effusion. Orbits: Unremarkable as visualized. IMPRESSION: 1. No definite acute intracranial abnormality.
[2017-04-06 05:02] LABS: ALB/GLOB RATIO 1.3 (1.1-1.8); ALBUMIN 3.6 g/dL (3.0-4.8); ALT/SGPT 23 U/L (7-56); AST/SGOT 33 U/L (14-36); BLOOD UREA NITROGEN 11 mg/dL (7-21); CALCIUM 9.5 mg/dL (8.4-10.5); GFR AFRICAN-AMERICAN > 60; GFR NON-AFRICAN AMERICAN > 60
[2017-04-06 05:15] LABS: PH,URINE 6.5 (4.7-8.0); URINE BILIRUBIN NEGATIVE (NEGATIVE); URINE GLUCOSE (UA) NEGATIVE (NEGATIVE); URINE LEUKOCYTE ESTERASE NEGATIVE Leu/uL (NEGATIVE); URINE NITRATE NEGATIVE (NEGATIVE); URINE PROTEIN NEGATIVE mg/dL (<30 mg/dL); URINE UROBILINOGEN 0.2 E.U./dL (<1 E.U./dL)
[2017-04-06 05:16] LABS: URINE APPEARANCE CLEAR (CLEAR); URINE BLOOD NEGATIVE (NEGATIVE)
[2017-04-06 05:57] VITALS: BP 124/82; O2SAT 100
--- NOTE | 2017-04-06 08:28 | RAD ---
HISTORY: dizzy COMPARISON: 03/08/2017 TECHNIQUE: Chest PA and lateral FINDINGS: LUNGS: No active pulmonary disease. PLEURA: No significant pleural effusion identified. No pneumothorax apparent. CARDIOVASCULAR: Normal. OSSEOUS STRUCTURES: No significant abnormalities. VISUALIZED UPPER ABDOMEN: Normal. OTHER FINDINGS: None. IMPRESSION: No active disease.
--- NOTE | 2017-04-06 12:26 | CARD ---
APPROVED REPORT EKG Measurement Heart [id number] NM [id number] <Conclusion> Normal sinus rhythm Normal ECG
== END 2017-04-06 05:58 | disposition home or self-care (01) ==
LOC: ED 03:22
DX: H83.09 Labyrinthitis, unspecified ear (principal)
CPT/HCPCS: 70450; 71046; 80053; 81003; 82550; 83615; 84484; 85025; 85610; 87070; 87430; 87804; 93005; 96374; 99283; J2930; J7040

== ENCOUNTER 2017-05-02 12:56 | Emergency (ER) | payer MEDICAID ==
[2017-05-02 12:57] VITALS: BMI 39.2
[2017-05-02 13:04] VITALS: TEMP 98
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
[2017-05-02] MEDS ORDERED: TDAP Vaccine 0.5 mL Syr IM ONE (13:37)
[2017-05-02 15:46] VITALS: BP 118/79; RESP 18; O2SAT 98
--- NOTE | 2017-05-02 17:06 | US ---
PROCEDURE: OB Pelvic Ultrasound HISTORY: Viability COMPARISON: None available. FINDINGS: UTERUS: There is a small hypoechoic area within the endometrial canal which could represent an early gestational sac. This is too small to characterize. There is no pole or yolk sac. Follow-up is suggested Uterus measures 6.24 x 3.52 x 3.27 cm. No mass CERVIX: Long and closed. No cervical abnormality seen. 3 cm in length RIGHT OVARY: Measures 3.24 x 1.72 x 1.69 cm. No mass. Normal flow. LEFT OVARY: Measures 3.19 x 2.76 x 3.02 cm. No mass. Normal flow. There is a cyst measuring 2.49 x 2.27 x 2.43 cm FREE FLUID: None. OTHER FINDINGS: None. IMPRESSION: There is a small hypoechoic area within the endometrial canal which could represent an early gestational sac. This is too small to characterize. There is no pole or yolk sac.
[2017-05-02 17:52] VITALS: PULSE 79
== END 2017-05-02 17:53 | disposition home or self-care (01) ==
LOC: ED 12:56
DX: O26.899 Other specified pregnancy related conditions, unspecified trimester (principal); M25.512 Pain in left shoulder; Y04.0XXA Assault by unarmed brawl or fight, initial encounter; Z23 Encounter for immunization

== ENCOUNTER 2017-05-10 17:03 | Emergency (ER) | payer MEDICAID ==
[2017-05-10 17:04] VITALS: BMI 39.2
[2017-05-10 17:49] VITALS: RESP 18; TEMP 98.5; O2SAT 99
[2017-05-10] MEDS ORDERED: Sodium Chloride 0.9% 500 ML IV STA (17:49)
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
--- NOTE | 2017-05-10 18:57 | ED PDOC ---
Arrival/HPI - General Chief Complaint: Abdominal Pain Time Seen by Provider: 05/10/17 17:17 Historian: Patient - History of Present Illness Narrative History of Present Illness (Text): 05/10/17 17:46 A 37 year old female, whose past medical history fibroidectomy (performed by Dr. Galaviz), presents to the emergency department complaining of cramping , suprapubic pain for 2 days. Patient reports pain as similar to menstrual cramping. 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 Denies any dysuria or any other symptoms at this time. , P: 0. LMP 04/02/2017, patient is approximately 5 weeks . Also, it is mentioned upon a recent visit for pelvic pain, patient has ultrasound performed , she had IUP and followed up with Dr. Galaviz. No PMD Past Medical History - Provider Review Nursing Documentation Reviewed: Yes - Past History Past History: Non-Contributing - Infectious Disease Hx of Infectious Diseases: None - Tetanus Immunization Tetanus Immunization: Unknown - Reproductive Menopause: No - Cardiac Hx Cardiac Disorders: No - Pulmonary Hx Respiratory Disorders: Yes Hx Asthma: Yes - Neurological Hx Neurological Disorder: No Other/Comment: nerve pain neck - HEENT Hx HEENT Disorder: No - Renal Hx Renal Disorder: No - Endocrine/Metabolic Hx Endocrine Disorders: No - Hematological/Oncological Hx Blood Disorders: No - Integumentary Hx Dermatological Disorder: No - Musculoskeletal/Rheumatological Hx Arthritis: Yes (mary knee) Hx Falls: No - Gastrointestinal Hx Gastrointestinal Disorders: No - Genitourinary/Gynecological Hx Genitourinary Disorders: Yes Other/Comment: ovarian cyst and uterine fibroid - Psychiatric Hx Psychophysiologic Disorder: No Hx Depression: No Hx Substance Use: Yes (Marijuana) - Past Surgical History Past Surgical History: No Previous - Surgical History Other/Comment: drained abscess x2, ovarian cyst and uterine fibroid removed 10/21 ectopic - Anesthesia Hx Anesthesia: Yes Hx Anesthesia Reactions: No Hx Malignant Hyperthermia: No - Suicidal Assessment Feels Threatened In Home Enviroment: No Family/Social History - Physician Review Nursing Documentation Reviewed: Yes Family/Social History: No Known Family HX Smoking Status: Current Some Days Smoker Hx Alcohol Use: Yes (Socially) Hx Substance Use: Yes (Marijuana) Hx Substance Use Treatment: No Allergies/Home Meds Allergies/Adverse Reactions: Allergies aspirin Allergy (Intermediate, Verified 05/02/17 12:58) ANAPHYLAXIS "my throat swells and i get short of breath" Home Medications: Home Meds Medication Instructions Recorded Confirmed Albuterol/Ipratropium [Combivent 2 puff IH DAILY PRN 11/15/16 05/10/17 Respimat] Albuterol/Ipratropium [Duoneb 3 3 ml IH TID 01/27/17 05/10/17 MG/3 Ml-0.5 MG/3 Ml 3 Ml] Review of Systems - Physician Review All systems were reviewed & negative as marked: Yes - Review of Systems Gastrointestinal: Abdominal Pain (suprapubic pain (cramp-like, similar to menstrual cramps)) Genitourinary Female: Other (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 absent: Dysuria Physical Exam Vital Signs Reviewed: Yes Vital Signs Temp Pulse Resp BP Pulse Ox 05/10/17 19:29 72 18 118/70 99 05/10/17 17:39 98.5 F 67 18 116/60 99 Temperature: Afebrile Blood Pressure: Normal Pulse: Regular Respiratory Rate: Normal Appearance: Positive for: Well-Appearing Pain Distress: None Mental Status: Positive for: Alert and Oriented X 3 - Systems Exam Head: Present: Atraumatic, Normocephalic Pupils: Present: PERRL Extroacular Muscles: Present: EOMI Conjunctiva: Present: Normal Mouth: Present: Moist Mucous Membranes Neck: Present: Normal Range of Motion Respiratory/Chest: Present: Clear to Auscultation, Good Air Exchange. No: Respiratory Distress, Accessory Muscle Use Cardiovascular: Present: Regular Rate and Rhythm, Normal S1, S2. No: Murmurs Abdomen: Present: Normal Bowel Sounds. No: Tenderness, Distention, Peritoneal Signs Back: Present: Normal Inspection Upper Extremity: Present: Normal Inspection. No: Cyanosis, Edema Lower Extremity: Present: Normal Inspection. No: Edema Neurological: Present: GCS=15, CN II-XII Intact, Speech Normal Skin: Present: Warm, Dry, Normal Color. No: Rashes Psychiatric: Present: Alert, Oriented x 3, Normal Insight, Normal Concentration Medical Decision Making ED Course and Treatment: 05/10/17 17:50 Impression: 37 year old female with suprapubic pain. Physical examination is unremarkable. Plan: -- Transvaginal Ultrasound -- Labs -- Urine Culture -- Tylenol -- IV Fluids -- Urinalysis -- Reassess and disposition Prior Visits: Notes and results from previous visits were reviewed. Patient was last seen in the emergency department on 05/02/2017 for left shoulder pain. Patient was d/c home. Progress Notes: 05/10/2017 18:36 Transvaginal Ultrasound IMPRESSION: Limited study. Single intrauterine with estimated gestational age 5 weeks 1 day by gestational sac calculation and 5 weeks 5 days by crown-rump length calculation. heart rate 91.5 bpm. 2.4 cm complex lesion, possibly right ovarian corpus luteal cyst. 2.9 cm complex left ovarian cyst, likely hemorrhagic. 2.3 cm left ovarian cyst. Recommend attention on six week ultrasound follow-up. Advise an anomaly screen at 16-18 weeks gestational age Dictator: Mago Chawla MD 05/10/17 21:05 Conversatiom w/ Dr. Wheeler , Dr. Galaviz coverage , is aware of patient presentation and labwork. Advised ER f/u for profuse vaginal bleeding/ pelvic rest. Followyup next week with the Dr. Galaviz. 05/10/17 21:07 serial abdominal exams benign. - Lab Interpretations Lab Results: 05/10/17 18:50 05/10/17 18:50 Lab Results 05/10/17 18:50: Blood Type A POSITIVE, Antibody Screen Negative, BBK History Checked Patient has bt 05/10/17 18:50: Beta HCG, Quant 73337.00 H 05/10/17 18:50: Sodium 140, Potassium 3.5 L, Chloride 108 H, Carbon Dioxide 27, Anion Gap 10, BUN 13, Creatinine 0.7, Est GFR ( Amer) > 60, Est GFR (Non- Af Amer) > 60, Random Glucose 97, Calcium 9.6, Total Bilirubin 0.4, AST 21, ALT 19, Alkaline Phosphatase 48, Total Protein 6.4, Albumin 3.7, Globulin 2.7, Albumin/Globulin Ratio 1.4 05/10/17 18:50: Urine Color Yellow, Urine Appearance Clear, Urine pH 6.0, Ur Specific [place] 1.025, Urine Protein Negative, Urine Glucose (UA) Negative, Urine Ketones Negative, Urine Blood Negative, Urine Nitrate Negative, Urine Bilirubin Negative, Urine Urobilinogen 0.2, Ur Leukocyte Esterase Negative, Urine HCG, Qual Positive 05/10/17 18:50: PT 12.0, INR 1.05, APTT 31.3 05/10/17 18:50: WBC 11.1 H, RBC 3.99, Hgb 11.8 L, Hct 35.4 L, MCV 88.7, MCH 29.6 , MCHC 33.3, RDW 13.4, Plt Count 348, MPV 8.6, Gran % 75.0 H, Lymph % (Auto) 18.3 L, [place] % (Auto) 6.1 H, Eos % (Auto) 0.4 L, Baso % (Auto) 0.2, Gran # 8.35 H, Lymph # (Auto) 2.0, [place] # (Auto) 0.7 H, Eos # (Auto) 0.1, Baso # (Auto) 0.02 - RAD Interpretation Radiology Orders: 05/10/17 17:49 OB TRANSVAGINAL [US] Stat - Medication Orders Current Medication Orders: Discontinued Medications Acetaminophen (Tylenol 325mg Tab) 650 mg PO STAT STA Stop: 05/10/17 17:51 Last Admin: 05/10/17 18:43 Dose: 650 mg MAR Pain/Vitals Document 05/10/17 18:43 STEPAN (Rec: 05/10/17 18:43 STEPAN [id number]) Pain Reassessment Is This A Pain ReAssessment? No Sleep Is patient sleeping during reassessment? No Presence of Pain Presence of Pain Yes Sodium Chloride (Sodium Chloride 0.9%) 500 mls @ 1,000 mls/hr IV .Q30M STA Stop: 05/10/17 18:18 Last Admin: 05/10/17 18:42 Dose: 1,000 mls/hr eMAR Start Stop Document 05/10/17 18:42 STEPAN (Rec: 05/10/17 18:42 STEPAN [email or web address]) Intravenous Solution Start Date 05/10/17 Start Time 18:42 End Date 05/10/17 End time 19:18 Total Infusion Time 36 - Scribe Statement The provider has reviewed the documentation as recorded by the Bethany Erwin Provider Scribe Attestation: All medical record entries made by the Scribe were at my direction and personally dictated by me. I have reviewed the chart and agree that the record accurately reflects my personal performance of the history, physical exam, medical decision making, and the department course for this patient. I have also personally directed, reviewed, and agree with the discharge instructions and disposition. Disposition/Present on Arrival - Present on Arrival Any Indicators Present on Arrival: No History of DVT/PE: No History of Uncontrolled Diabetes: No Urinary Catheter: No History of Decub. Ulcer: No History Surgical Site Infection Following: None - Disposition Have Diagnosis and Disposition been Completed?: Yes Diagnosis: Threatened Disposition: HOME/ ROUTINE Disposition Time: 21:08 Patient Plan: Discharge Condition: IMPROVED Discharge Instructions (ExitCare): Threatened Miscarriage, Bleeding With (DC) Print Language: TAMAZIGHT Additional Instructions: At this point in time your lab tests are all within normal limits. Please follow up with Dr. Galaviz next week. Get extra rest / abstain from sex x 1-2 weeks, return urgently if you experience vaginal bleeding soaking through more than 2-3 pads/hour x 2 hours consecutively. Referrals: [facility], [Primary Care Provider] - Follow up with primary Chris Galaviz MD [Medical Doctor] - Follow up with primary Forms: [email or web address] (Arabic)
[2017-05-10 19:09] LABS: BASO # 0.02 K/mm3 (0.0-2.0); BASO % 0.2 % (0.0-3.0); EOS # 0.1 (0.0-0.7); EOS % 0.4 % (1.5-5.0); GRAN # 8.35 (1.4-6.5); HEMOGLOBIN 11.8 g/dL (12.0-16.0); LYMPH % 18.3 % (22.0-35.0); MEAN CELL VOLUME 88.7 fl (80.0-105.0); MEAN CORPUSCULAR HEMOGLOBIN 29.6 pg (25.0-35.0); MEAN CORPUSCULAR HGB CONC 33.3 g/dl (31.0-37.0); MEAN PLATELET VOLUME 8.6 fl (7.0-11.0); MONO # 0.7 (0.1-0.6); MONO % 6.1 % (1.0-6.0); RBC 3.99 10^6/uL (3.5-6.1); RED CELL DISTRIBUTION WIDTH 13.4 % (11.5-14.5); URINE BILIRUBIN NEGATIVE (NEGATIVE); URINE BLOOD NEGATIVE (NEGATIVE); URINE GLUCOSE (UA) NEGATIVE (NEGATIVE); URINE LEUKOCYTE ESTERASE NEGATIVE Leu/uL (NEGATIVE); URINE PROTEIN NEGATIVE mg/dL (<30 mg/dL); URINE UROBILINOGEN 0.2 E.U./dL (<1 E.U./dL); WHITE BLOOD COUNT 11.1 10^3/ul (4.5-11.0)
[2017-05-10 19:13] LABS: HCG,QUALITATIVE URINE POSITIVE (NEGATIVE); URINE APPEARANCE CLEAR (CLEAR); URINE COLOR YELLOW (YELLOW)
[2017-05-10 19:22] LABS: ALB/GLOB RATIO 1.4 (1.1-1.8); ALBUMIN 3.7 g/dL (3.0-4.8); ALT/SGPT 19 U/L (7-56); AST/SGOT 21 U/L (14-36); BLOOD UREA NITROGEN 13 mg/dL (7-21); CALCIUM 9.6 mg/dL (8.4-10.5); GFR AFRICAN-AMERICAN > 60; GFR NON-AFRICAN AMERICAN > 60
[2017-05-10 19:29] VITALS: BP 118/70; PULSE 72
[2017-05-10 19:30] LABS: INR 1.05 (0.93-1.08); PARTIAL THROMBOPLASTIN TIME 31.3 Seconds (25.1-36.5)
== END 2017-05-10 21:13 | disposition home or self-care (01) ==
LOC: ED 17:03
DX: O20.0 Threatened abortion (principal); Z3A.01 Less than 8 weeks gestation of pregnancy
CPT/HCPCS: 76817; 80053; 81003; 84702; 84703; 85025; 85610; 85730; 86850; 86900; 87086; 96360; 99285; J7040

== ENCOUNTER 2017-05-16 12:40 | Emergency (ER) | payer MEDICAID ==
[2017-05-16 13:28] VITALS: BMI 41.2
[2017-05-16 13:33] VITALS: BP 132/74; PULSE 76; TEMP 98.8
[2017-05-16 13:37] VITALS: RESP 18; O2SAT 99
--- NOTE | 2017-05-16 14:09 | ED PDOC ---
Arrival/HPI - General Chief Complaint: Female Genitourinary Time Seen by Provider: 05/16/17 13:54 Historian: Patient - History of Present Illness Narrative History of Present Illness (Text): 05/16/17 14:04 37 year old female presents to the Emergency department complaining of abdominal cramping and spotting that began this morning at 07:00. Patient reports she was evaluated here in the Emergency department last week for similar complaints and was informed she has 2 cysts. Patient denies any vomiting , urinary symptoms, fever, chills, chest pain, shortness of breath, diarrhea, back pain, neck pain, headache, dizziness, or any other complaints. Time/Duration: 4-6 hours Symptom Onset: Sudden Symptom Course: Unchanged Activities at Onset: Rest Context: Home Associated Symptoms (Text): 05/16/17 14:18 Patient had a transvaginal ultrasound 6 days ago which showed a 5 week 1 day IUP with a positive heart rate. Her beta hCG was elevated at that time. She complains of cramping and bleeding beginning this morning. No genitourinary symptoms. No nausea vomiting or diarrhea. No fever or chills. Past Medical History - Provider Review Nursing Documentation Reviewed: Yes - Past History Past History: Non-Contributing - Infectious Disease Hx of Infectious Diseases: None - Tetanus Immunization Tetanus Immunization: Unknown - Reproductive Menopause: No - Cardiac Hx Cardiac Disorders: No - Pulmonary Hx Respiratory Disorders: Yes Hx Asthma: Yes - Neurological Hx Neurological Disorder: No Other/Comment: nerve pain neck - HEENT Hx HEENT Disorder: No - Renal Hx Renal Disorder: No - Endocrine/Metabolic Hx Endocrine Disorders: No - Hematological/Oncological Hx Blood Disorders: No - Integumentary Hx Dermatological Disorder: No - Musculoskeletal/Rheumatological Hx Arthritis: Yes (mary knee) Hx Falls: No - Gastrointestinal Hx Gastrointestinal Disorders: No - Genitourinary/Gynecological Hx Genitourinary Disorders: Yes Other/Comment: ovarian cyst and uterine fibroid - Psychiatric Hx Psychophysiologic Disorder: No Hx Depression: No Hx Substance Use: No (Marijuana) - Past Surgical History Past Surgical History: No Previous - Surgical History Other/Comment: drained abscess x2, ovarian cyst and uterine fibroid removed 10/21 ectopic - Anesthesia Hx Anesthesia: Yes Hx Anesthesia Reactions: No Hx Malignant Hyperthermia: No - Suicidal Assessment Feels Threatened In Home Enviroment: No Family/Social History - Physician Review Nursing Documentation Reviewed: Yes Family/Social History: Unknown Family HX Smoking Status: Light Smoker < 10 Cigarettes Daily Hx Alcohol Use: Yes (Socially) Frequency of alcohol use: Socially Hx Substance Use: No (Marijuana) Hx Substance Use Treatment: No Allergies/Home Meds Allergies/Adverse Reactions: Allergies aspirin Allergy (Intermediate, Verified 05/02/17 12:58) ANAPHYLAXIS "my throat swells and i get short of breath" Home Medications: Home Meds Medication Instructions Recorded Confirmed Albuterol/Ipratropium [Combivent 2 puff IH DAILY PRN 11/15/16 05/10/17 Respimat] Albuterol/Ipratropium [Duoneb 3 3 ml IH TID 01/27/17 05/10/17 MG/3 Ml-0.5 MG/3 Ml 3 Ml] Review of Systems - Physician Review All systems were reviewed & negative as marked: Yes - Review of Systems Constitutional: absent: Fevers, Night Sweats Respiratory: absent: SOB Cardiovascular: absent: Chest Pain Gastrointestinal: Abdominal Pain (cramping). absent: Diarrhea, Vomiting Genitourinary Female: Vaginal Bleeding (spotting). absent: Dysuria, Frequency, Hematuria, Vaginal Discharge Musculoskeletal: absent: Back Pain, Neck Pain Neurological: absent: Headache, Dizziness Physical Exam Vital Signs Reviewed: Yes Vital Signs Temp Pulse Resp BP Pulse Ox 05/16/17 13:36 98.8 F 76 18 132/74 99 05/16/17 13:28 98.8 F 76 16 132/74 98 Temperature: Afebrile Blood Pressure: Normal Pulse: Regular Respiratory Rate: Normal Appearance: Positive for: Uncomfortable, Other (obese) Pain Distress: None Mental Status: Positive for: Alert and Oriented X 3 - Systems Exam Head: Present: Atraumatic, Normocephalic Pupils: Present: PERRL Extroacular Muscles: Present: EOMI Conjunctiva: Present: Normal Mouth: Present: Moist Mucous Membranes Pharnyx: No: ERYTHEMA, EXUDATE, TONSILS ENLARGED Respiratory/Chest: Present: Clear to Auscultation, Good Air Exchange. No: Respiratory Distress, Accessory Muscle Use Cardiovascular: Present: Regular Rate and Rhythm, Normal S1, S2. No: Murmurs Abdomen: Present: Normal Bowel Sounds. No: Tenderness, Distention, Peritoneal Signs, Rebound, Guarding Genitourinary/Pelvic Exam: Present: Normal External Genitalia, Cervical os Closed. No: Vaginal Discharge, Vaginal Bleeding, Vaginal Lesions, Adenexal Tenderness, Adenexal Mass, Cervical Motion Tendernes, Odor Upper Extremity: Present: Normal Inspection. No: Cyanosis, Edema Lower Extremity: Present: Normal Inspection. No: Edema Neurological: Present: GCS=15, CN II-XII Intact, Speech Normal, Motor Func Grossly Intact Skin: Present: Warm, Dry, Normal Color. No: Rashes Medical Decision Making ED Course and Treatment: 05/16/17 14:12 Impression: 37 year old female presents to the Emergency department complaining of abdominal cramping and spotting since this morning. Plan: -- Reassess and disposition Prior Visits: Notes and results from previous visits were reviewed. Patient was last seen in the emergency department on 05/10/17 for cramping and spotting. Patient was diagnosed with threatened and was discharged home. Progress Notes: 05/16/17 14:20 Patient with cramping similar to menstrual cycle and vaginal bleeding beginning this morning. There is currently no bleeding. Her os is closed. She did have an IUP and an ultrasound 6 days ago. She had an elevated beta quantitative at that time also. She is currently not bleeding. This may represent a threatened . She was told that nothing goes in the vagina until seen by her OB/ [employer]. Follow-up in the ER as needed. Currently there is no indication to have any imaging done at this time. We know that she does not have an ectopic as she had an IUP on ultrasound 6 days ago. Blood type is A+. - Scribe Statement The provider has reviewed the documentation as recorded by the Bethany Edwards Provider Scribe Attestation: All medical record entries made by the Bethany were at my direction and personally dictated by me. I have reviewed the chart and agree that the record accurately reflects my personal performance of the history, physical exam, medical decision making, and the department course for this patient. I have also personally directed, reviewed, and agree with the discharge instructions and disposition. Disposition/Present on Arrival - Present on Arrival Any Indicators Present on Arrival: No History of DVT/PE: No History of Uncontrolled Diabetes: No Urinary Catheter: No History of Decub. Ulcer: No History Surgical Site Infection Following: None - Disposition Have Diagnosis and Disposition been Completed?: Yes Diagnosis: Threatened , Vaginal bleeding Disposition: HOME/ ROUTINE Disposition Time: 14:21 Patient Plan: Discharge Patient Problems: Current Active Problems Problem Status Onset Threatened Acute Vaginal bleeding Acute Condition: GOOD Discharge Instructions (ExitCare): Threatened Miscarriage Additional Instructions: Must follow with STORE TEAM MEMBER. Follow-up in ER as needed. Forms: [employer] (Gibraltarian)
== END 2017-05-16 14:30 | disposition home or self-care (01) ==
LOC: ED 12:40
DX: O20.0 Threatened abortion (principal); Z3A.01 Less than 8 weeks gestation of pregnancy

== ENCOUNTER 2017-05-31 15:16 | Emergency (ER) | payer MEDICAID, OTHER ==
[2017-05-31 15:37] VITALS: BMI 41.5
--- NOTE | 2017-05-31 15:39 | ED PDOC ---
Arrival/HPI - General Chief Complaint: Respiratory Distress Time Seen by Provider: 05/31/17 15:29 Historian: Patient - History of Present Illness Narrative History of Present Illness (Text): 05/31/17 15:38 37yo female with PMhx of Asthma who present with complaint of wheezing, SOB, and nonproductive cough x days. Patient states is her typical Asthma symptoms. States she used her inhaler without relieve. She denies fever, sick contact, travel, any other compliant. she is not steroid dependent and never intubated. Past Medical History - Provider Review Nursing Documentation Reviewed: Yes - Past History Past History: Non-Contributing - Infectious Disease Hx of Infectious Diseases: None - Tetanus Immunization Tetanus Immunization: Unknown - Cardiac Hx Cardiac Disorders: No - Pulmonary Hx Respiratory Disorders: Yes Hx Asthma: Yes - Neurological Hx Neurological Disorder: Yes Other/Comment: nerve pain neck - HEENT Hx HEENT Disorder: No - Renal Hx Renal Disorder: No - Endocrine/Metabolic Hx Endocrine Disorders: No - Hematological/Oncological Hx Blood Disorders: No - Integumentary Hx Dermatological Disorder: No - Musculoskeletal/Rheumatological Hx Musculoskeletal Disorders: Yes Hx Arthritis: Yes (mary knee) - Gastrointestinal Hx Gastrointestinal Disorders: No - Genitourinary/Gynecological Hx Genitourinary Disorders: Yes Other/Comment: ovarian cyst and uterine fibroid - Psychiatric Hx Psychophysiologic Disorder: No Hx Substance Use: No (Marijuana) - Past Surgical History Past Surgical History: No Previous - Surgical History Other/Comment: drained abscess x2, ovarian cyst and uterine fibroid removed 10/21 ectopic - Anesthesia Hx Anesthesia: Yes Hx Anesthesia Reactions: No Hx Malignant Hyperthermia: No - Suicidal Assessment Feels Threatened In Home Enviroment: No Family/Social History - Physician Review Nursing Documentation Reviewed: Yes Family/Social History: Unknown Family HX Smoking Status: Light Smoker < 10 Cigarettes Daily Hx Alcohol Use: Yes (Socially) Hx Substance Use: No (Marijuana) Hx Substance Use Treatment: No Allergies/Home Meds Allergies/Adverse Reactions: Allergies aspirin Allergy (Intermediate, Verified 05/31/17 15:31) ANAPHYLAXIS "my throat swells and i get short of breath" Home Medications: Home Meds Medication Instructions Recorded Confirmed Albuterol/Ipratropium [Combivent 2 puff IH DAILY PRN 11/15/16 05/31/17 Respimat] Albuterol/Ipratropium [Duoneb 3 3 ml IH TID 01/27/17 05/31/17 MG/3 Ml-0.5 MG/3 Ml 3 Ml] Review of Systems - Physician Review All systems were reviewed & negative as marked: Yes - Review of Systems Constitutional: Normal Eyes: Normal ENT: Normal Respiratory: SOB, Cough, Wheezing. absent: Sputum Cardiovascular: Normal Gastrointestinal: Normal Genitourinary Female: Normal Musculoskeletal: Normal Skin: Normal Neurological: Normal Endocrine: Normal Hemo/Lymphatic: Normal Psychiatric: Normal Physical Exam Vital Signs Reviewed: Yes Vital Signs Temp Pulse Resp BP Pulse Ox 05/31/17 17:46 80 20 110/65 99 05/31/17 16:28 98.2 F 80 20 116/90 98 05/31/17 15:38 22 99 05/31/17 15:30 98.0 F 85 22 122/83 99 Temperature: Afebrile Blood Pressure: Normal Pulse: Regular Respiratory Rate: Normal Appearance: Positive for: Well-Appearing, Non-Toxic, Comfortable Pain Distress: None Mental Status: Positive for: Alert and Oriented X 3 - Systems Exam Head: Present: Atraumatic, Normocephalic Pupils: Present: PERRL Extroacular Muscles: Present: EOMI Conjunctiva: Present: Normal Mouth: Present: Moist Mucous Membranes Neck: Present: Normal Range of Motion Respiratory/Chest: Present: Good Air Exchange, Wheezes (Diffuse expiratory wheeze). No: Respiratory Distress, Accessory Muscle Use, Decreased Breath Sounds, Rales, Retracting, Rhonchi Cardiovascular: Present: Regular Rate and Rhythm, Normal S1, S2. No: Murmurs Abdomen: No: Tenderness, Distention, Peritoneal Signs Back: Present: Normal Inspection Upper Extremity: Present: Normal Inspection. No: Cyanosis, Edema Lower Extremity: Present: Normal Inspection. No: Edema Neurological: Present: GCS=15, CN II-XII Intact, Speech Normal Skin: Present: Warm, Dry, Normal Color. No: Rashes Psychiatric: Present: Alert, Oriented x 3, Normal Insight, Normal Concentration Medical Decision Making ED Course and Treatment: 05/31/17 17:47 PT in ED for stated history. She was treated with Duoneb x 3 and solu medrol in ED. On re evaluation she notes that her symptoms improved. her lung was CTA b/ l. she was ambulatory and talking in full sentence without distress. she will be DC home with albuterol . Referred to her PMD. she is currently 5months . Pt consented to taking solu medrol in Ed before it was given. - Lab Interpretations Lab Results: 05/31/17 16:00 05/31/17 16:00 Lab Results 05/31/17 16:00: Sodium 136, Potassium 3.7, Chloride 104, Carbon Dioxide 24, Anion Gap 12, BUN 11, Creatinine 0.6 L, Est GFR ( Amer) > 60, Est GFR ( Non-Af Amer) > 60, Random Glucose 83, Calcium 9.8, Total Bilirubin 0.7, AST 28, ALT 21, Alkaline Phosphatase 40, Total Protein 6.5, Albumin 3.6, Globulin 2.9, Albumin/Globulin Ratio 1.2 05/31/17 16:00: WBC 11.2 H, RBC 4.13, Hgb 11.9 L, Hct 35.6 L, MCV 86.2, MCH 28.8 , MCHC 33.4, RDW 13.5, Plt Count 332, MPV 8.3, Gran % 60.4, Lymph % (Auto) 28.4 , [place] % (Auto) 6.6 H, Eos % (Auto) 4.3, Baso % (Auto) 0.3, Gran # 6.77 H, Lymph # (Auto) 3.2, [place] # (Auto) 0.7 H, Eos # (Auto) 0.5, Baso # (Auto) 0.03 - Medication Orders Current Medication Orders: Discontinued Medications Albuterol/Ipratropium (Duoneb 3 Mg/0.5 Mg (3 Ml) Ud) 3 ml IH Q15M STA Stop: 05/31/17 15:48 Last Admin: 05/31/17 15:53 Dose: 3 ml Methylprednisolone (Solu-Medrol) 125 mg IVP STAT STA Stop: 05/31/17 15:48 Last Admin: 05/31/17 15:53 Dose: 125 mg IVP Administration Document 05/31/17 15:53 OCS (Rec: 05/31/17 15:53 OCS [id number]) Charges for Administration # of IVP Administrations 1 Disposition/Present on Arrival - Present on Arrival Any Indicators Present on Arrival: No History of DVT/PE: No History of Uncontrolled Diabetes: No Urinary Catheter: No History of Decub. Ulcer: No History Surgical Site Infection Following: None - Disposition Have Diagnosis and Disposition been Completed?: Yes Diagnosis: Asthma attack Disposition: HOME/ ROUTINE Disposition Time: 17:45 Patient Plan: Discharge Patient Problems: Current Active Problems Problem Status Onset Asthma exacerbation Acute Condition: STABLE Discharge Instructions (ExitCare): Asthma, Adult (DC), Asthma and Additional Instructions: Follow up with your doctor Return to ED for any new or worsening symptoms Referrals: Tao Barahona MD [Primary Care Provider] - Follow up with primary Forms: [employer] (Romanian)
[2017-05-31] MEDS ORDERED: Albuterol-Ipratrop 3 mg / 0.5 (3 ml) UD IH STA (15:47)
[2017-05-31 16:18] LABS: BASO # 0.03 K/mm3 (0.0-2.0); BASO % 0.3 % (0.0-3.0); EOS # 0.5 (0.0-0.7); EOS % 4.3 % (1.5-5.0); GRAN # 6.77 (1.4-6.5); GRAN % 60.4 % (50.0-68.0); HEMOGLOBIN 11.9 g/dL (12.0-16.0); LYMPH # 3.2 (1.2-3.4); LYMPH % 28.4 % (22.0-35.0); MEAN CELL VOLUME 86.2 fl (80.0-105.0); MEAN CORPUSCULAR HEMOGLOBIN 28.8 pg (25.0-35.0); MEAN CORPUSCULAR HGB CONC 33.4 g/dl (31.0-37.0); MEAN PLATELET VOLUME 8.3 fl (7.0-11.0); MONO # 0.7 (0.1-0.6); MONO % 6.6 % (1.0-6.0); RBC 4.13 10^6/uL (3.5-6.1); RED CELL DISTRIBUTION WIDTH 13.5 % (11.5-14.5); WHITE BLOOD COUNT 11.2 10^3/ul (4.5-11.0)
[2017-05-31 16:29] VITALS: PULSE 80; RESP 20; TEMP 98.2
[2017-05-31 16:43] LABS: ALB/GLOB RATIO 1.2 (1.1-1.8); ALBUMIN 3.6 g/dL (3.0-4.8); ALT/SGPT 21 U/L (7-56); AST/SGOT 28 U/L (14-36); BLOOD UREA NITROGEN 11 mg/dL (7-21); CALCIUM 9.8 mg/dL (8.4-10.5); GFR AFRICAN-AMERICAN > 60; GFR NON-AFRICAN AMERICAN > 60
[2017-05-31 17:50] VITALS: BP 110/65; O2SAT 99
== END 2017-05-31 18:40 | disposition home or self-care (01) ==
LOC: ED 15:16
DX: J45.909 Unspecified asthma, uncomplicated (principal); F17.210 Nicotine dependence, cigarettes, uncomplicated
CPT/HCPCS: 80053; 85025; 96374; 99284; J2930

== ENCOUNTER 2017-06-10 04:16 | Observation (INO) | payer MEDICAID ==
[2017-06-10] MEDS: Albuterol-Ipratrop 3 mg / 0.5 (3 ml) UD IH SCH ×3 (04:30→05:00)
--- NOTE | 2017-06-10 04:30 | ED PDOC ---
Arrival/HPI - General Historian: Patient - History of Present Illness Symptom Onset: Gradual Symptom Course: Unchanged Activities at Onset: Light Context: Home - General Chief Complaint: Shortness Of Breath Time Seen by Provider: 06/10/17 04:21 - History of Present Illness Narrative History of Present Illness (Text): 06/10/17 04:27 Arminda Finch is a 37 year old female, whose past medical history includes asthma , currently , who presents to the Emergency department complaining of shortness of breath and wheezing for the past 2-3 days. Patient reports associated cold-like symptoms and notes symptoms are consistent with previous episodes of asthma. Patient states she ran out of her inhaler pump and has not taken an oral steroids. Patient states she recently saw a high-risk OBGYN and was told she can take steroids. Patient denies any fever, chills, chest pain, nausea, vomiting, diarrhea, urinary symptoms, back pain, neck pain, headache, dizziness, or any other complaints. (Aditya Berg) Past Medical History - Provider Review Nursing Documentation Reviewed: Yes - Past History Past History: Non-Contributing - Infectious Disease Hx of Infectious Diseases: None - Tetanus Immunization Tetanus Immunization: Unknown - Cardiac Hx Cardiac Disorders: No - Pulmonary Hx Respiratory Disorders: Yes Hx Asthma: Yes - Neurological Hx Neurological Disorder: Yes Other/Comment: nerve pain neck - HEENT Hx HEENT Disorder: No - Renal Hx Renal Disorder: No - Endocrine/Metabolic Hx Endocrine Disorders: No - Hematological/Oncological Hx Blood Disorders: No - Integumentary Hx Dermatological Disorder: No - Musculoskeletal/Rheumatological Hx Musculoskeletal Disorders: Yes Hx Arthritis: Yes (mary knee) - Gastrointestinal Hx Gastrointestinal Disorders: No - Genitourinary/Gynecological Hx Genitourinary Disorders: Yes Other/Comment: ovarian cyst and uterine fibroid - Psychiatric Hx Psychophysiologic Disorder: No Hx Substance Use: No (Marijuana) - Past Surgical History Past Surgical History: No Previous - Surgical History Other/Comment: drained abscess x2, ovarian cyst and uterine fibroid removed 10/21 ectopic - Anesthesia Hx Anesthesia: Yes Hx Anesthesia Reactions: No Hx Malignant Hyperthermia: No - Suicidal Assessment Feels Threatened In Home Enviroment: No Family/Social History - Physician Review Nursing Documentation Reviewed: Yes Family/Social History: Unknown Family HX Smoking Status: Light Smoker < 10 Cigarettes Daily Hx Alcohol Use: Yes (Socially) Hx Substance Use: No (Marijuana) Hx Substance Use Treatment: No Allergies/Home Meds Allergies/Adverse Reactions: Allergies aspirin Allergy (Intermediate, Verified 05/31/17 15:31) ANAPHYLAXIS "my throat swells and i get short of breath" Home Medications: Home Meds Medication Instructions Recorded Confirmed Pyridoxine HCl (Vitamin B6) 0 mg PO DAILY 06/10/17 06/10/17 [Vitamin B-6] Review of Systems - Physician Review All systems were reviewed & negative as marked: Yes - Review of Systems Constitutional: Normal. absent: Fevers Eyes: Normal ENT: Normal Respiratory: SOB, Wheezing Cardiovascular: Normal. absent: Chest Pain Gastrointestinal: Normal. absent: Abdominal Pain, Diarrhea, Nausea, Vomiting Genitourinary Female: Normal. absent: Dysuria, Frequency, Hematuria, Urine Output Changes Musculoskeletal: Normal. absent: Back Pain, Neck Pain Skin: Normal. absent: Rash Neurological: Normal. absent: Headache, Dizziness Endocrine: Normal Hemo/Lymphatic: Normal Psychiatric: Normal Physical Exam Vital Signs Reviewed: Yes Temperature: Afebrile Blood Pressure: Normal Pulse: Regular Respiratory Rate: Normal Appearance: Positive for: Well-Appearing, Non-Toxic, Comfortable Pain Distress: None Mental Status: Positive for: Alert and Oriented X 3 - Systems Exam Head: Present: Atraumatic, Normocephalic Pupils: Present: PERRL Extroacular Muscles: Present: EOMI Conjunctiva: Present: Normal Mouth: Present: Moist Mucous Membranes Neck: Present: Normal Range of Motion Respiratory/Chest: No: Respiratory Distress, Accessory Muscle Use Cardiovascular: Present: Regular Rate and Rhythm, Normal S1, S2. No: Murmurs Abdomen: No: Tenderness, Distention, Peritoneal Signs Back: Present: Normal Inspection Upper Extremity: Present: Normal Inspection. No: Cyanosis, Edema Lower Extremity: Present: Normal Inspection. No: Edema Neurological: Present: GCS=15, CN II-XII Intact, Speech Normal Skin: Present: Warm, Dry, Normal Color. No: Rashes Psychiatric: Present: Alert, Oriented x 3, Normal Insight, Normal Concentration Vital Signs Temp Pulse Pulse Resp BP Pulse Ox 06/10/17 12:38 98.4 F 78 78 18 131/54 L 06/10/17 12:00 98.6 F 73 20 129/68 98 06/10/17 10:00 78 18 131/54 L 97 06/10/17 08:07 98.4 F 76 18 137/72 99 06/10/17 08:00 18 06/10/17 06:28 73 20 118/63 99 06/10/17 04:30 23 06/10/17 04:26 98.0 F 143/68 06/10/17 04:21 113 H 24 94 L Medical Decision Making ED Course and Treatment: EKG shows NSR at [address]-segment elevations, normal intervals, normal axis. Interpreted by me. (Kapil Carrera) 06/10/17 04:27 Impression: 37 year old female complaining of shortness of breath and wheezing for the past 2-3 days. Differential Diagnosis included but are not limited to: asthma Plan: -- Duoneb -- Solu-medrol -- Labs -- Reassess and disposition Prior Visits: Notes and results from previous visits were reviewed. On 05/31/2017, pt was seen in the Emergency department for wheezing, shortness of breath, and productive cough. Pt was d/c home. Progress Notes: case d/w dr ledezma accepts case (Aditya Berg) - Lab Interpretations Lab Results: 06/10/17 04:30 06/10/17 04:30 Lab Results 06/10/17 04:30: WBC 11.4 H, RBC 4.01, Hgb 11.5 L, Hct 34.8 L, MCV 86.8, MCH 28.7 , MCHC 33.0, RDW 13.4, Plt Count 353, MPV 8.6, Gran % 63.3, Lymph % (Auto) 23.7 , Ware % (Auto) 7.2 H, Eos % (Auto) 5.5 H, Baso % (Auto) 0.3, Gran # 7.25 H, Lymph # (Auto) 2.7, Ware # (Auto) 0.8 H, Eos # (Auto) 0.6, Baso # (Auto) 0.03 06/10/17 04:30: Sodium 139, Potassium 3.3 L, Chloride 106, Carbon Dioxide 22, Anion Gap 15, BUN 10, Creatinine 0.6 L, Est GFR ( Amer) > 60, Est GFR ( Non-Af Amer) > 60, Random Glucose 85, Calcium 9.5, Total Bilirubin 0.4, AST 20, ALT 11, Alkaline Phosphatase 41, Total Protein 6.6, Albumin 3.6, Globulin 3.0, Albumin/Globulin Ratio 1.2 - Medication Orders Current Medication Orders: Discontinued Medications Acetaminophen (Tylenol 325mg Tab) 650 mg PO Q6 PRN PRN Reason: Fever >100.4 F Albuterol Sulfate (Albuterol 0.5% Inhal Anna (2.5 Mg/0.5 Ml) Ud) 2.5 mg IH STAT STA Stop: 06/10/17 06:45 Last Admin: 06/10/17 06:52 Dose: 2.5 mg Albuterol Sulfate (Albuterol 0.083% Inhal Anna (2.5 Mg/3 Ml) Ud) 2.5 mg INH Q20M HUSAM Stop: 06/10/17 09:11 Last Admin: 06/10/17 09:12 Dose: 2.5 mg Albuterol Sulfate (Albuterol 0.083% Inhal Anna (2.5 Mg/3 Ml) Ud) 2.5 mg INH Q4 PRN PRN Reason: Shortness of Breath Albuterol/Ipratropium (Duoneb 3 Mg/0.5 Mg (3 Ml) Ud) 3 ml IH Q15M HUSAM Stop: 06/10/17 05:01 Last Admin: 06/10/17 05:00 Dose: 3 ml Azithromycin (Zithromax) 500 mg PO ONCE ONE PRN Reason: Protocol Stop: 06/10/17 14:36 Last Admin: 06/10/17 15:03 Dose: 500 mg Azithromycin (Zithromax) 250 mg PO DAILY HUSAM PRN Reason: Protocol Stop: 06/14/17 10:01 Last Admin: 06/11/17 09:19 Dose: 250 mg Budesonide (Pulmicort Respules) 0.5 mg IH [id number] [facility] Last Admin: 06/11/17 07:41 Dose: 0.5 mg Famotidine (Pepcid) 20 mg PO BID [facility] Last Admin: 06/11/17 09:19 Dose: 20 mg Magnesium Sulfate 2 gm/ Sodium (Chloride) 104 mls @ 102 mls/hr IVPB ONCE ONE Stop: 06/10/17 08:11 Last Admin: 06/10/17 08:02 Dose: 102 mls/hr eMAR Start Stop Document 06/10/17 08:02 STEPAN (Rec: 06/10/17 08:02 STEPAN [id number]) Intravenous Solution Start Date 06/10/17 Start Time 08:02 End Date 06/10/17 End time 09:02 Total Infusion Time 60 Methylprednisolone (Solu-Medrol) 125 mg IVP ONCE ONE Stop: 06/10/17 04:28 Last Admin: 06/10/17 04:40 Dose: 125 mg IVP Administration Document 06/10/17 04:40 RD (Rec: 06/10/17 04:51 RD [id number]) Charges for Administration # of IVP Administrations 1 Methylprednisolone (Solu-Medrol) 40 mg IVP Q12 HUSAM Last Admin: 06/11/17 09:19 Dose: 40 mg IVP Administration Document 06/11/17 09:19 TAMRA (Rec: 06/11/17 09:19 TAMRA [id number]) Charges for Administration # of IVP Administrations 1 Potassium Chloride (K-Dur 20 Meq Er Tab) 20 meq PO ONCE ONE Stop: 06/10/17 06:50 Last Admin: 06/10/17 06:59 Dose: 20 meq - Scribe Statement The provider has reviewed the documentation as recorded by the Scribe - Scribe Statement Myla Ward Provider Scribe Attestation: All medical record entries made by the Scribe were at my direction and personally dictated by me. I have reviewed the chart and agree that the record accurately reflects my personal performance of the history, physical exam, medical decision making, and the department course for this patient. I have also personally directed, reviewed, and agree with the discharge instructions and disposition. (Aditya Berg) Disposition/Present on Arrival - Present on Arrival Any Indicators Present on Arrival: No History of DVT/PE: No History of Uncontrolled Diabetes: No Urinary Catheter: No History of Decub. Ulcer: No History Surgical Site Infection Following: None - Disposition Have Diagnosis and Disposition been Completed?: Yes Disposition Time: 07:00 - Disposition Diagnosis: Asthma Disposition: HOSPITALIZED Condition: GOOD
[2017-06-10 06:12] LABS: BASO # 0.03 K/mm3 (0.0-2.0); BASO % 0.3 % (0.0-3.0); EOS # 0.6 (0.0-0.7); EOS % 5.5 % (1.5-5.0); GRAN # 7.25 (1.4-6.5); GRAN % 63.3 % (50.0-68.0); HEMOGLOBIN 11.5 g/dL (12.0-16.0); LYMPH # 2.7 (1.2-3.4); LYMPH % 23.7 % (22.0-35.0); MEAN CELL VOLUME 86.8 fl (80.0-105.0); MEAN CORPUSCULAR HEMOGLOBIN 28.7 pg (25.0-35.0); MEAN PLATELET VOLUME 8.6 fl (7.0-11.0); MONO # 0.8 (0.1-0.6); MONO % 7.2 % (1.0-6.0); RBC 4.01 10^6/uL (3.5-6.1); RED CELL DISTRIBUTION WIDTH 13.4 % (11.5-14.5); WHITE BLOOD COUNT 11.4 10^3/ul (4.5-11.0)
[2017-06-10 06:25] LABS: ALB/GLOB RATIO 1.2 (1.1-1.8); ALBUMIN 3.6 g/dL (3.0-4.8); ALT/SGPT 11 U/L (7-56); AST/SGOT 20 U/L (14-36); BLOOD UREA NITROGEN 10 mg/dL (7-21); CALCIUM 9.5 mg/dL (8.4-10.5); GFR AFRICAN-AMERICAN > 60; GFR NON-AFRICAN AMERICAN > 60
[2017-06-10] MEDS ORDERED: Albuterol 0.5% Inhal Sol (2.5 mg/0.5 ml) UD IH STA (06:44)
[2017-06-10] MEDS ORDERED: Potassium Chloride 20 mEq ER Tab PO ONE (06:49)
[2017-06-10] MEDS ORDERED: Magnesium Sulfate 2 GM in Sodium Chloride 0.9% 100 ML IVPB ONE (07:10)
[2017-06-10] MEDS ORDERED: Albuterol 0.083% Inhal Sol (2.5 mg/3 mL) UD INH PRN (08:17)
[2017-06-10] MEDS: Albuterol 0.083% Inhal Sol (2.5 mg/3 mL) UD INH SCH ×3 (08:30→09:12)
[2017-06-10 13:20] VITALS: BMI 41.7
[2017-06-10] MEDS ORDERED: MethylPREDNISolone 40 mg Vial IVP SCH (14:00)
--- NOTE | 2017-06-10 14:10 | CP.PCM.HP ---
<Jass Mishra - Last Filed: 06/10/17 14:06> History of Present Illness - History of Present Illness History of Present Illness: Internal Medicine H&P for Dr. Cecilio Mishra PGY-1 CC: Shortness of breath HPI: Patient is a 37 year old female with past medical history of asthma with prior episodes of asthma exacerbation requiring hospitilzation as well as endotracheal intubation in 2011 at [facility] [place], obstructive sleep apnea and arthritis who presented to [facility] ED for shortness of breath and wheezing for the past 2 to 3 days. Patient indicates that she is 10 weeks gestation and is unsure of her LDLMP but reports she is due January 06. Patient currently sees a high risk OBGYN for her asthma for which she was prescribed oral steroids for her moderate to severe asthma. Patient indicates she is prescribed an albuterol inhaler but has not been able to use the inhaler along with her oral steroids as she has run out of the medication. Patient is able to speak in full sentences without conversational dyspnea at time of interview. She reports cold like symptoms and productive green sputum over the past 24 hours. Patient indicates she had not been feeling well prior to the initiation of her symptoms. Patient indicates several exacerbations of her asthma over the past year. Patient denies chest pain, abdominal pain, fever, chills, sweats, vomiting , diarrhea, constipation. Patient indicates no complications with her at time of interview. 12 poin ROS is benign other than mentioned in HPI. PMH: As above PSH: Cyst removal 09/2015, Groin I&D Sochx: Tobacco: Denies, former, ETOH: Denies, ID: Former THC FMH: Asthma All: ASA causing angioedema MEDS: MAR reviewed Present on Admission - Present on Admission Any Indicators Present on Admission: No Review of Systems - Review of Systems All systems: reviewed and no additional remarkable complaints except (as mentioned in HPI) Past Patient History - Infectious Disease Hx of Infectious Diseases: None - Tetanus Immunizations Tetanus Immunization: Unknown - Past Medical History & Family History Past Medical History?: Yes - Past Social History Smoking Status: Former Smoker Alcohol: None Drugs: Cannabis (former) - CARDIAC Hx Cardiac Disorders: No - PULMONARY Hx Respiratory Disorders: Yes Hx Asthma: Yes Hx Bronchitis: Yes Hx Sleep Apnea: Yes (confirmed by sleep study, mild) Other/Comment: pt does not use a cpap at home, intubation for asthma for 22 dys about 4 yrs ago - NEUROLOGICAL Hx Neurological Disorder: Yes Other/Comment: nerve pain neck - HEENT Hx HEENT Problems: Yes Other/Comment: in 2017 pt had viral labyrinth syncrome affecting left ear, no hearing loss noted - RENAL Hx Chronic Kidney Disease: No - ENDOCRINE/METABOLIC Hx Endocrine Disorders: No - HEMATOLOGICAL/ONCOLOGICAL Hx Blood Disorders: No - INTEGUMENTARY Hx Dermatological Problems: No - MUSCULOSKELETAL/RHEUMATOLOGICAL Hx Musculoskeletal Disorders: Yes Hx Arthritis: Yes (mary knee, and back) Hx Back Pain: Yes (arthritis and sciatica) Hx Falls: No Hx Fractures: Yes (left fibula) Hx Osteoarthritis: Yes Other/Comment: left fibula fx pt waw movig and a table fell on her leg, pt stated it was a "small fx" no sx or cast just wrapped and used crutches, chronic nerve pain in neck - GASTROINTESTINAL Hx Gastrointestinal Disorders: Yes (obese) - GENITOURINARY/GYNECOLOGICAL Hx Genitourinary Disorders: Yes (pt is 10 wks ) Hx Urinary Tract Infection: Yes Other/Comment: ovarian cyst and uterine fibroid, urinary frequency during - PSYCHIATRIC Hx Psychophysiologic Disorder: No Hx Substance Use: Yes (stopped marijuna when ) Other/Comment: occasional marijuana use pt "stopped" when , was a light smoker and "stopped"when , denies drinking - SURGICAL HISTORY Other/Comment: drained and i&d with packing r groin abscess x2 09/03/15, ovarian cyst and uterine fibroid removed 10/22/15 ectopic ruled out - ANESTHESIA Hx Anesthesia: Yes Hx Anesthesia Reactions: No Hx Malignant Hyperthermia: No Meds Allergies/Adverse Reactions: Allergies Allergy/AdvReac Type Severity Reaction Status Date / Time aspirin Allergy Intermediate ANAPHYLAXIS Verified 05/31/17 15:31 Physical Exam - Constitutional Appears: Non-toxic - Head Exam Head Exam: ATRAUMATIC, NORMAL INSPECTION, NORMOCEPHALIC - Eye Exam Eye Exam: EOMI, PERRL - ENT Exam ENT Exam: Mucous Membranes Dry - Respiratory Exam Respiratory Exam: Decreased Breath Sounds, Wheezes (expiratory, diffuse, in all lung zeng), NORMAL BREATHING PATTERN. absent: Accessory Muscle Use - Cardiovascular Exam Cardiovascular Exam: REGULAR RHYTHM, +S1, +S2 - GI/Abdominal Exam GI & Abdominal Exam: Normal Bowel Sounds, Soft. absent: Distended, Firm, Tenderness - Extremities Exam Extremities exam: Positive for: normal inspection. Negative for: calf tenderness - Neurological Exam Neurological exam: Alert, Oriented x3 Additional comments: patient able to move all four extremities past midline, motor and sensory grossly intact - Psychiatric Exam Psychiatric exam: Normal Affect, Normal Mood - Skin Skin Exam: Dry, Intact Results - Vital Signs Recent Vital Signs: Last Vital Signs Temp 98.4 F 06/10/17 12:38 Pulse 78 06/10/17 12:38 Resp 18 06/10/17 12:38 BP 131/54 L 06/10/17 12:38 Pulse Ox 98 06/10/17 12:00 - Labs Result Diagrams: 06/10/17 04:30 06/10/17 04:30 Labs: Laboratory Results - last 24 hr 06/10/17 07:30 Influenza Typ A,B (EIA) Negative for flu a/b Assessment & Plan - Assessment and Plan (Free Text) Assessment: Patient is a 37 year old female with past medical history of asthma with prior episodes of asthma exacerbation requiring hospitilzation as well as endotracheal intubation in 2011, obstructive sleep apnea and arthritis who presented to [facility] ED for suspected acute exacerbation of her asthma. Patient was given IV steroids, mg sulfate, and breathing treatments in ED with minimal improvement of her symptoms. Patient is to be admitted for further medical management and observation. Plan: Asthma Exacerbation Details: - Hx of asthma exacerbation requiring hospitilazation and one instance of intubation - IV solumedrol, MgSulgate, breathing treatments given in ED - No leukocytosis, trigger most likely URI Plan: - Pulm consult due to significant past of asthma exacerbation and elevated amount of admissions over past year - IV solumedrol - Pulmicort HUSAM and PRN - O2 supplementation as needed, with goal O2 >90% - Afebrile with mild lekocytosis, holding antibiotics at this time awaiting recs , f/u sputum culture - Avoid damaging drugs - CXR unavailble to potential radiation harm to fetus GI/DVT ppx - Pepcid - SCDs Case and Plan discussed with attending Bere Mishra PGY-1 - Date & Time Date: 06/10/17 Time: 14:31 <Kadi Hernandes - Last Filed: 06/10/17 15:37> Results - Vital Signs Recent Vital Signs: Last Vital Signs Temp 98.4 F 06/10/17 12:38 Pulse 78 06/10/17 12:38 Resp 18 06/10/17 12:38 BP 131/54 L 06/10/17 12:38 Pulse Ox 98 06/10/17 12:00 - Labs Result Diagrams: 06/10/17 04:30 06/10/17 04:30 Labs: Laboratory Results - last 24 hr 06/10/17 07:30 Influenza Typ A,B (EIA) Negative for flu a/b Attending/Attestation - Attestation I have personally seen and examined this patient.: Yes I have fully participated in the care of the patient.: Yes I have reviewed all pertinent clinical information: Yes Notes (Text): 06/10/17 15:19 37 year old female, 10 weeks , with past medical history of asthma, history of prior intubation, who presents with complaint of shortness of breath secondary to asthma exacerbation. She has mild leukocytosis. She is started on solumedrol, azithromycin, albuterol and pulmicort. She states she was seen by her high climber physician who said she may take low intermittent steroids. Risks and benefits of above medications was discussed with patient. Pulmonary consultation was greatly appreciated. Kadi Hernandes MD Hospitalist.
--- NOTE | 2017-06-10 14:14 | CP.PCM.CON ---
History of Present Illness - History of Present Illness History of Present Illness: Pulmonary Consult Note Reason for consult: Asthma Exacerbation HPI Patient is 37yo female with PMHx of ABBI, obesity, Asthma, former smoker, currently 10 weeks (1st ) presents with SOB. Pt reports that after began, she was taken off all her Asthma inhalers (which she doesnt know the name of), and placed on Ventolin only. For the past week she has had worsening SOB, wheezing, and cough productive of green sputum, associated with chills. Denies fever, chest pain, n/v/d, abd pain. Pt reports she has been using Ventolin every 1-2 hours, and has felt palpitations. 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 Pt has not filled it out. This morning the patient reports she had worsening SOB and presented to the ER. Pt has 1 prior intubation in 2013 at [facility] [place]. No other constitutional symptoms. PMHx as above PSHx as above Meds as per EMR FHx Asthma ROS as above Social former smoker, denies etoh, drug use Review of Systems - Review of Systems Review of Systems: as per HPI Past Patient History - Infectious Disease Hx of Infectious Diseases: None - Tetanus Immunizations Tetanus Immunization: Unknown - Past Medical History & Family History Past Medical History?: Yes - Past Social History Smoking Status: Former Smoker - CARDIAC Hx Cardiac Disorders: No - PULMONARY Hx Respiratory Disorders: Yes Hx Asthma: Yes Hx Bronchitis: Yes Hx Sleep Apnea: Yes (confirmed by sleep study, mild) Other/Comment: pt does not use a cpap at home, intubation for asthma for 22 dys about 4 yrs ago - NEUROLOGICAL Hx Neurological Disorder: Yes Other/Comment: nerve pain neck - HEENT Hx HEENT Problems: Yes Other/Comment: in 2017 pt had viral labyrinth syncrome affecting left ear, no hearing loss noted - RENAL Hx Chronic Kidney Disease: No - ENDOCRINE/METABOLIC Hx Endocrine Disorders: No - HEMATOLOGICAL/ONCOLOGICAL Hx Blood Disorders: No - INTEGUMENTARY Hx Dermatological Problems: No - MUSCULOSKELETAL/RHEUMATOLOGICAL Hx Musculoskeletal Disorders: Yes Hx Arthritis: Yes (mary knee, and back) Hx Back Pain: Yes (arthritis and sciatica) Hx Falls: No Hx Fractures: Yes (left fibula) Hx Osteoarthritis: Yes Other/Comment: left fibula fx pt waw movig and a table fell on her leg, pt stated it was a "small fx" no sx or cast just wrapped and used crutches, chronic nerve pain in neck - GASTROINTESTINAL Hx Gastrointestinal Disorders: Yes (obese) - GENITOURINARY/GYNECOLOGICAL Hx Genitourinary Disorders: Yes (pt is 10 wks ) Hx Urinary Tract Infection: Yes Other/Comment: ovarian cyst and uterine fibroid, urinary frequency during - PSYCHIATRIC Hx Psychophysiologic Disorder: No Hx Substance Use: Yes (stopped marijuna when ) Other/Comment: occasional marijuana use pt "stopped" when , was a light smoker and "stopped"when , denies drinking - SURGICAL HISTORY Other/Comment: drained and i&d with packing r groin abscess x2 09/03/15, ovarian cyst and uterine fibroid removed 10/22/15 ectopic ruled out - ANESTHESIA Hx Anesthesia: Yes Hx Anesthesia Reactions: No Hx Malignant Hyperthermia: No Meds Allergies/Adverse Reactions: Allergies Allergy/AdvReac Type Severity Reaction Status Date / Time aspirin Allergy Intermediate ANAPHYLAXIS Verified 05/31/17 15:31 - Medications Medications: Current Medications Acetaminophen (Tylenol 325mg Tab) 650 mg PO Q6 PRN PRN Reason: Fever >100.4 F Albuterol Sulfate (Albuterol 0.083% Inhal Anna (2.5 Mg/3 Ml) Ud) 2.5 mg INH Q4 PRN PRN Reason: Shortness of Breath Budesonide (Pulmicort Respules) 0.5 mg IH [id number] [facility] Famotidine (Pepcid) 20 mg PO BID [facility] Last Admin: 06/10/17 11:06 Dose: Not Given Methylprednisolone (Solu-Medrol) 40 mg IVP Q12 [facility] Physical Exam - Constitutional Appears: Non-toxic, No Acute Distress - Head Exam Head Exam: NORMAL INSPECTION - Eye Exam Eye Exam: Normal appearance - ENT Exam ENT Exam: Mucous Membranes Moist - Neck Exam Neck exam: Positive for: Full Rom - Respiratory Exam Respiratory Exam: Wheezes, NORMAL BREATHING PATTERN - Cardiovascular Exam Cardiovascular Exam: REGULAR RHYTHM, +S1, +S2 - GI/Abdominal Exam GI & Abdominal Exam: Normal Bowel Sounds, Soft - Extremities Exam Extremities exam: Positive for: normal inspection - Neurological Exam Neurological exam: Alert, Oriented x3 Results - Vital Signs Recent Vital Signs: Last Vital Signs Temp 98.4 F 06/10/17 12:38 Pulse 78 06/10/17 12:38 Resp 18 06/10/17 12:38 BP 131/54 L 06/10/17 12:38 Pulse Ox 98 06/10/17 12:00 - Labs Result Diagrams: 06/10/17 04:30 06/10/17 04:30 Labs: Laboratory Results - last 24 hr 06/10/17 07:30 Influenza Typ A,B (EIA) Negative for flu a/b Assessment & Plan - Assessment and Plan (Free Text) Assessment: 37yo female a/w asthma exacerbation Asthma Exacerbation SOB - currently afebrile, HD stable, comfortable in NAD, speaking full sentences, reports SOB is significantly improved since admission, reports cough productive of green sputum, eosinophilia on cbc with diff, on exam mild end exp wheezing noted - CXR unavailable due to fetus risk of radiation - Flu negative - cont with Solumedrol IV 40mg q12hr for now - Azithromycin PO daily x 5 days - Duonebs PRN - check peak flow - will need outpatient pulm follow up upon discharge
--- NOTE | 2017-06-10 16:36 | CARD ---
APPROVED REPORT EKG Measurement Heart [id number] <Conclusion> Normal sinus rhythm Normal ECG
[2017-06-10] MEDS ORDERED: Arformoterol 15 mcg/2 ml Inh Sol IH SCH (20:00)
[2017-06-10] MEDS: Budesonide 0.5 mg/2 ml Inhal Susp UD IH SCH (20:19)
[2017-06-10] MEDS: MethylPREDNISolone 40 mg Vial IVP SCH (21:34)
--- NOTE | 2017-06-11 00:07 | US ---
EXAM: US First Trimester, Transabdominal CLINICAL HISTORY: 37 years old, female; Signs and symptoms; Lmp or gestational age (in weeks): 03/23/17; Other: Asthma; ; Additional info: 10 weeks TECHNIQUE: Real-time transabdominal obstetrical ultrasound of the maternal pelvis and a first trimester with image documentation. COMPARISON: US - OB TRANSVAGINAL 2017-05-10 18:02 FINDINGS: Gestation: Single live intrauterine . Estimated gestational age based on crown-rump length is 10 weeks 2 days. heart rate noted at 157 bpm. Uterus/cervix: Small amount of fluid in the cervix. No myometrial mass. Ovaries: 1.7 cm left ovarian cyst. Doppler flow. Free fluid: No free fluid. IMPRESSION: Single live intrauterine . Estimated gestational age based on crown-rump length is 10 weeks 2 days. heart rate noted at 157 bpm. Small amount of fluid in the cervix. 1.7 cm left ovarian cyst.
[2017-06-11 06:32] LABS: EOS % 0.1 % (1.5-5.0); GRAN # 14.3 (1.4-6.5); GRAN % 88.1 % (50.0-68.0); HEMOGLOBIN 11.4 g/dL (12.0-16.0); LYMPH # 1.2 (1.2-3.4); LYMPH % 7.2 % (22.0-35.0); MEAN CELL VOLUME 86.8 fl (80.0-105.0); MEAN CORPUSCULAR HEMOGLOBIN 28.5 pg (25.0-35.0); MEAN CORPUSCULAR HGB CONC 32.9 g/dl (31.0-37.0); MEAN PLATELET VOLUME 8.5 fl (7.0-11.0); MONO # 0.7 (0.1-0.6); MONO % 4.6 % (1.0-6.0); RED CELL DISTRIBUTION WIDTH 13.5 % (11.5-14.5); WHITE BLOOD COUNT 16.2 10^3/ul (4.5-11.0)
[2017-06-11 06:55] LABS: ALB/GLOB RATIO 1.2 (1.1-1.8); ALBUMIN 3.7 g/dL (3.0-4.8); ALT/SGPT 14 U/L (7-56); AST/SGOT 36 U/L (14-36); BLOOD UREA NITROGEN 11 mg/dL (7-21); CALCIUM 9.9 mg/dL (8.4-10.5); GFR AFRICAN-AMERICAN > 60; GFR NON-AFRICAN AMERICAN > 60
[2017-06-11] MEDS: Budesonide 0.5 mg/2 ml Inhal Susp UD IH SCH (07:41)
[2017-06-11 08:18] VITALS: BP 111/60; RESP 19; TEMP 97.9; O2SAT 97
[2017-06-11] MEDS: MethylPREDNISolone 40 mg Vial IVP SCH (09:19)
--- NOTE | 2017-06-11 11:46 | CP.PCM.CON ---
History of Present Illness - History of Present Illness History of Present Illness: 37-year-old female approximately 10 weeks gestational age admitted to hospital for asthma exacerbation. Patient is stable at this time. Patient without any obstetrical complaints. Patient denies any abdominal pain, vaginal bleeding, vaginal discharge. I discussed with patient general information regarding and -related precautions. All patient questions answered. Past Patient History - Infectious Disease Hx of Infectious Diseases: None - Tetanus Immunizations Tetanus Immunization: Unknown - Past Medical History & Family History Past Medical History?: Yes - Past Social History Smoking Status: Former Smoker Alcohol: None Drugs: Cannabis (former) - CARDIAC Hx Cardiac Disorders: No - PULMONARY Hx Respiratory Disorders: Yes Hx Asthma: Yes Hx Bronchitis: Yes Hx Sleep Apnea: Yes (confirmed by sleep study, mild) Other/Comment: pt does not use a cpap at home, intubation for asthma for 22 dys about 4 yrs ago - NEUROLOGICAL Hx Neurological Disorder: Yes Other/Comment: nerve pain neck - HEENT Hx HEENT Problems: Yes Other/Comment: in 2017 pt had viral labyrinth syncrome affecting left ear, no hearing loss noted - RENAL Hx Chronic Kidney Disease: No - ENDOCRINE/METABOLIC Hx Endocrine Disorders: No - HEMATOLOGICAL/ONCOLOGICAL Hx Blood Disorders: No - INTEGUMENTARY Hx Dermatological Problems: No - MUSCULOSKELETAL/RHEUMATOLOGICAL Hx Musculoskeletal Disorders: Yes Hx Arthritis: Yes (mary knee, and back) Hx Back Pain: Yes (arthritis and sciatica) Hx Falls: No Hx Fractures: Yes (left fibula) Hx Osteoarthritis: Yes Other/Comment: left fibula fx pt waw movig and a table fell on her leg, pt stated it was a "small fx" no sx or cast just wrapped and used crutches, chronic nerve pain in neck - GASTROINTESTINAL Hx Gastrointestinal Disorders: Yes (obese) - GENITOURINARY/GYNECOLOGICAL Hx Genitourinary Disorders: Yes (pt is 10 wks ) Hx Urinary Tract Infection: Yes Other/Comment: ovarian cyst and uterine fibroid, urinary frequency during - PSYCHIATRIC Hx Psychophysiologic Disorder: No Hx Substance Use: Yes (stopped marijuna when ) Other/Comment: occasional marijuana use pt "stopped" when , was a light smoker and "stopped"when , denies drinking - SURGICAL HISTORY Other/Comment: drained and i&d with packing r groin abscess x2 09/03/15, ovarian cyst and uterine fibroid removed 10/22/15 ectopic ruled out - ANESTHESIA Hx Anesthesia: Yes Hx Anesthesia Reactions: No Hx Malignant Hyperthermia: No Meds Allergies/Adverse Reactions: Allergies Allergy/AdvReac Type Severity Reaction Status Date / Time aspirin Allergy Intermediate ANAPHYLAXIS Verified 05/31/17 15:31 - Medications Medications: Current Medications Acetaminophen (Tylenol 325mg Tab) 650 mg PO Q6 PRN PRN Reason: Fever >100.4 F Albuterol Sulfate (Albuterol 0.083% Inhal Anna (2.5 Mg/3 Ml) Ud) 2.5 mg INH Q4 PRN PRN Reason: Shortness of Breath Azithromycin (Zithromax) 250 mg PO DAILY [facility] PRN Reason: Protocol Stop: 06/14/17 10:01 Last Admin: 06/11/17 09:19 Dose: 250 mg Budesonide (Pulmicort Respules) 0.5 mg IH [id number] [facility] Last Admin: 06/11/17 07:41 Dose: 0.5 mg Famotidine (Pepcid) 20 mg PO BID [facility] Last Admin: 06/11/17 09:19 Dose: 20 mg Methylprednisolone (Solu-Medrol) 40 mg IVP Q12 [facility] Last Admin: 06/11/17 09:19 Dose: 40 mg Physical Exam - Constitutional Appears: Well, No Acute Distress - Head Exam Head Exam: ATRAUMATIC - Eye Exam Eye Exam: EOMI, Normal appearance - ENT Exam ENT Exam: Mucous Membranes Moist - Exam Additional comments: Soft, nontender, nondistended. No rebound, no guarding. Results - Vital Signs Recent Vital Signs: Last Vital Signs Temp 97.9 F 06/11/17 08:18 Pulse 82 06/11/17 08:18 Resp 19 06/11/17 08:18 BP 111/60 06/11/17 08:18 Pulse Ox 97 06/11/17 08:18 - Labs Result Diagrams: 06/11/17 05:30 06/11/17 05:30 Labs: Laboratory Results - last 24 hr 06/10/17 06/11/17 06/11/17 21:58 05:30 05:30 WBC 16.2 H D RBC 4.00 Hgb 11.4 L Hct 34.7 L MCV 86.8 MCH 28.5 MCHC 32.9 RDW 13.5 Plt Count 347 MPV 8.5 Gran % 88.1 H Lymph % (Auto) 7.2 L Hart % (Auto) 4.6 Eos % (Auto) 0.1 L Baso % (Auto) 0.0 Gran # 14.30 H Lymph # (Auto) 1.2 Hart # (Auto) 0.7 H Eos # (Auto) 0.0 Baso # (Auto) 0.00 Sodium 139 Potassium 4.0 Chloride 108 H Carbon Dioxide 22 Anion Gap 13 BUN 11 Creatinine 0.6 L Est GFR ( Amer) > 60 Est GFR (Non-Af Amer) > 60 POC Glucose (mg/dL) 128 H Random Glucose 122 H Calcium 9.9 Total Bilirubin 0.4 AST 36 D ALT 14 Alkaline Phosphatase 48 Total Protein 6.9 Albumin 3.7 Globulin 3.2 Albumin/Globulin Ratio 1.2 06/11/17 07:28 WBC RBC Hgb Hct MCV MCH MCHC RDW Plt Count MPV Gran % Lymph % (Auto) Hart % (Auto) Eos % (Auto) Baso % (Auto) Gran # Lymph # (Auto) Hart # (Auto) Eos # (Auto) Baso # (Auto) Sodium Potassium Chloride Carbon Dioxide Anion Gap BUN Creatinine Est GFR ( Amer) Est GFR (Non-Af Amer) POC Glucose (mg/dL) 149 H Random Glucose Calcium Total Bilirubin AST ALT Alkaline Phosphatase Total Protein Albumin Globulin Albumin/Globulin Ratio - Imaging and Cardiology US - abdomen Status: Report reviewed by me Assessment & Plan - Assessment and Plan (Free Text) Assessment: 10.2 weeks gestational age, no obstetrical issues. Asthma exacerbation managed by medical team. Plan: vitamins Schedule care as outpatient after discharge when asthma exacerbation treated. Medical management as per medicine team. I discussed plan with patient and all patient questions answered. - Date & Time Date: 06/11/17 Time: 11:48
--- NOTE | 2017-06-11 15:43 | CP.PCM.DIS ---
<PorfiriomeaganJass crawford - Last Filed: 06/11/17 15:38> Provider - Provider Date of Admission: 06/10/17 07:08 Attending physician: Pamela Elmore MD Primary care physician: Aditya Howard DO Consults: OBGYN: Dr. Terry Time Spent in preparation of Discharge (in minutes): 35 Diagnosis - Discharge Diagnosis (1) Asthma Status: Chronic (2) Asthma exacerbation Status: Acute Hospital Course - Lab Results Lab Results: Most Recent Lab Values WBC 16.2 10^3/ul (4.5-11.0) H D 06/11/17 05:30 RBC 4.00 10^6/uL (3.5-6.1) 06/11/17 05:30 Hgb 11.4 g/dL (12.0-16.0) L 06/11/17 05:30 Hct 34.7 % (36.0-48.0) L 06/11/17 05:30 MCV 86.8 fl (80.0-105.0) 06/11/17 05:30 MCH 28.5 pg (25.0-35.0) 06/11/17 05:30 MCHC 32.9 g/dl (31.0-37.0) 06/11/17 05:30 RDW 13.5 % (11.5-14.5) 06/11/17 05:30 Plt Count 347 10^3/uL (120.0-450.0) 06/11/17 05:30 MPV 8.5 fl (7.0-11.0) 06/11/17 05:30 Gran % 88.1 % (50.0-68.0) H 06/11/17 05:30 Lymph % (Auto) 7.2 % (22.0-35.0) L 06/11/17 05:30 Seward % (Auto) 4.6 % (1.0-6.0) 06/11/17 05:30 Eos % (Auto) 0.1 % (1.5-5.0) L 06/11/17 05:30 Baso % (Auto) 0.0 % (0.0-3.0) 06/11/17 05:30 Gran # 14.30 (1.4-6.5) H 06/11/17 05:30 Lymph # (Auto) 1.2 (1.2-3.4) 06/11/17 05:30 Seward # (Auto) 0.7 (0.1-0.6) H 06/11/17 05:30 Eos # (Auto) 0.0 (0.0-0.7) 06/11/17 05:30 Baso # (Auto) 0.00 K/mm3 (0.0-2.0) 06/11/17 05:30 Sodium 139 mmol/L (132-148) 06/11/17 05:30 Potassium 4.0 mmol/L (3.6-5.0) 06/11/17 05:30 Chloride 108 mmol/L (98-107) H 06/11/17 05:30 Carbon Dioxide 22 mmol/L (21-33) 06/11/17 05:30 Anion Gap 13 (10-20) 06/11/17 05:30 BUN 11 mg/dL (7-21) 06/11/17 05:30 Creatinine 0.6 mg/dl (0.7-1.2) L 06/11/17 05:30 Est GFR ( Amer) > 60 06/11/17 05:30 Est GFR (Non-Af Amer) > 60 06/11/17 05:30 POC Glucose (mg/dL) 114 mg/dL (65-110) H 06/11/17 11:38 Random Glucose 122 mg/dL (70-110) H 06/11/17 05:30 Calcium 9.9 mg/dL (8.4-10.5) 06/11/17 05:30 Total Bilirubin 0.4 mg/dL (0.2-1.3) 06/11/17 05:30 AST 36 U/L (14-36) D 06/11/17 05:30 ALT 14 U/L (7-56) 06/11/17 05:30 Alkaline Phosphatase 48 U/L (38-126) 06/11/17 05:30 Total Protein 6.9 g/dL (5.8-8.3) 06/11/17 05:30 Albumin 3.7 g/dL (3.0-4.8) 06/11/17 05:30 Globulin 3.2 gm/dL 06/11/17 05:30 Albumin/Globulin Ratio 1.2 (1.1-1.8) 06/11/17 05:30 Influenza Typ A,B (EIA) Negative for flu a/b (NEGATIVE) 06/10/17 07:30 - Hospital Course Hospital Course: Patient is a 37 year old female with past medical history of asthma, ABBI, arthritis, at 10 week gestation who presented to [facility] [place] [facility] ED complaining of a 2 to 3 day history of shortness of breath. Patient was evaluated in ED, given IV steroids, Magnesium sulfate, and albuterol breathing treatments. Patient showed minimal improvement in her symptoms and was admitted for asthma exacerbation. Pulmonlogy was consulted and evaluated the patient with recommendation for continued IV steroids, breathing treatments and antibiotics for asthma exacerbation. Patient was observed over course of stay and showed continued improvement in her symptoms. Patient was able to ambulate without difficulty, reported resolution of shortness of breath. IN discussion with patient she was agreeable for discharge with continued antibiotic therapy and steroids outpatient. Patient was instructed to follow up with primary care team , OBGYN and seasonal sales associate outpatient. Patient was agreeable with discharge instructions/planning. At time of discharge patient was clinically stable. - Date & Time of H&P Date of H&P: 06/10/17 Time of H&P: 14:06 Discharge Exam - Head Exam Head Exam: ATRAUMATIC, NORMAL INSPECTION, NORMOCEPHALIC - Eye Exam Eye Exam: EOMI - ENT Exam ENT Exam: Mucous Membranes Moist - Respiratory Exam Respiratory Exam: Wheezes (expiratory bilaterally, improved from presentation ) . absent: Rales, Rhonchi - Cardiovascular Exam Cardiovascular Exam: REGULAR RHYTHM, +S1, +S2 - GI/Abdominal Exam GI & Abdominal Exam: Normal Bowel Sounds, Soft. absent: Tenderness - Extremities Exam Extremities exam: normal inspection, pedal pulses present - Neurological Exam Neurological exam: Alert, Normal Gait, Oriented x3 - Psychiatric Exam Psychiatric exam: Normal Affect, Normal Mood - Skin Skin Exam: Dry, Warm Discharge Plan - Discharge Medications Prescriptions: RX: Azithromycin [Z-Medhat] 250 mg PO DAILY #3 tab Methylprednisolone [Medrol Dose Pack (21 tabs)] See Taper PO DAILY #21 mg RX: Vit 75/Iron/Folic/Om3 [Daily Combo Pack] 1 each PO DAILY # 90 combo..pkg - Follow Up Plan Condition: GOOD Disposition: HOME/ ROUTINE Instructions: Asthma (DC) Additional Instructions: - Follow up with primary care physician with in 1 week upon discharge - Follow up with OBGYN within 1 to 2 weeks upon discharge - Follow up with high risk OBGYN upon discharge - Follow up with [facility] upon discharge - Take medications as prescribed to you - If you experience worsening or return of your symptoms go the nearest ED Referrals: Aditya Howard DO [Primary Care Provider] - <Kadi Hernandes - Last Filed: 06/11/17 16:39> Provider - Provider Date of Admission: 06/10/17 07:08 Attending physician: Pamela Elmore MD Primary care physician: Aditya Howard DO Hospital Course - Lab Results Lab Results: Most Recent Lab Values WBC 16.2 10^3/ul (4.5-11.0) H D 06/11/17 05:30 RBC 4.00 10^6/uL (3.5-6.1) 06/11/17 05:30 Hgb 11.4 g/dL (12.0-16.0) L 06/11/17 05:30 Hct 34.7 % (36.0-48.0) L 06/11/17 05:30 MCV 86.8 fl (80.0-105.0) 06/11/17 05:30 MCH 28.5 pg (25.0-35.0) 06/11/17 05:30 MCHC 32.9 g/dl (31.0-37.0) 06/11/17 05:30 RDW 13.5 % (11.5-14.5) 06/11/17 05:30 Plt Count 347 10^3/uL (120.0-450.0) 06/11/17 05:30 MPV 8.5 fl (7.0-11.0) 06/11/17 05:30 Gran % 88.1 % (50.0-68.0) H 06/11/17 05:30 Lymph % (Auto) 7.2 % (22.0-35.0) L 06/11/17 05:30 Seward % (Auto) 4.6 % (1.0-6.0) 06/11/17 05:30 Eos % (Auto) 0.1 % (1.5-5.0) L 06/11/17 05:30 Baso % (Auto) 0.0 % (0.0-3.0) 06/11/17 05:30 Gran # 14.30 (1.4-6.5) H 06/11/17 05:30 Lymph # (Auto) 1.2 (1.2-3.4) 06/11/17 05:30 Seward # (Auto) 0.7 (0.1-0.6) H 06/11/17 05:30 Eos # (Auto) 0.0 (0.0-0.7) 06/11/17 05:30 Baso # (Auto) 0.00 K/mm3 (0.0-2.0) 06/11/17 05:30 Sodium 139 mmol/L (132-148) 06/11/17 05:30 Potassium 4.0 mmol/L (3.6-5.0) 06/11/17 05:30 Chloride 108 mmol/L (98-107) H 06/11/17 05:30 Carbon Dioxide 22 mmol/L (21-33) 06/11/17 05:30 Anion Gap 13 (10-20) 06/11/17 05:30 BUN 11 mg/dL (7-21) 06/11/17 05:30 Creatinine 0.6 mg/dl (0.7-1.2) L 06/11/17 05:30 Est GFR ( Amer) > 60 06/11/17 05:30 Est GFR (Non-Af Amer) > 60 06/11/17 05:30 POC Glucose (mg/dL) 119 mg/dL (65-110) H 06/11/17 16:22 Random Glucose 122 mg/dL (70-110) H 06/11/17 05:30 Calcium 9.9 mg/dL (8.4-10.5) 06/11/17 05:30 Total Bilirubin 0.4 mg/dL (0.2-1.3) 06/11/17 05:30 AST 36 U/L (14-36) D 06/11/17 05:30 ALT 14 U/L (7-56) 06/11/17 05:30 Alkaline Phosphatase 48 U/L (38-126) 06/11/17 05:30 Total Protein 6.9 g/dL (5.8-8.3) 06/11/17 05:30 Albumin 3.7 g/dL (3.0-4.8) 06/11/17 05:30 Globulin 3.2 gm/dL 06/11/17 05:30 Albumin/Globulin Ratio 1.2 (1.1-1.8) 06/11/17 05:30 Influenza Typ A,B (EIA) Negative for flu a/b (NEGATIVE) 06/10/17 07:30 Attending/Attestation - Attestation I have personally seen and examined this patient.: Yes I have fully participated in the care of the patient.: Yes I have reviewed all pertinent clinical information, including history, physical exam and plan: Yes Notes (Text): 06/11/17 16:33 37 year old female, 10 weeks , with past medical history of asthma, history of prior intubation, who presented with complaint of shortness of breath secondary to asthma exacerbation. She was started on solumedrol, azithromycin, albuterol and pulmicort with improvement of symptoms. She was seen by pulmonary and OBGYN. Risks and benefits of above medications was discussed with patient. Leukocytosis likely secondary to steroids. CXR was not done due to risk of radiation to fetus. Today patient's symptoms have improved. She is discharged home to follow up with her pmd. Follow up with seasonal sales associate. Follow up with OBGYN and high business risk consultant. Kadi Hernandes MD Hospitalist.
[2017-06-11 16:16] VITALS: PULSE 85
== END 2017-06-11 18:09 | disposition home or self-care (01) ==
LOC: ED 04:16 → ERH 07:08 → 3RNO 12:41
PROVIDERS: ADMIT Hospitalist; ATTEND Hospitalist
DX: O99.511 Diseases of the respiratory system complicating pregnancy, first trimester (principal); J45.901 Unspecified asthma with (acute) exacerbation; G47.33 Obstructive sleep apnea (adult) (pediatric); O99.211 Obesity complicating pregnancy, first trimester; O34.81 Maternal care for other abnormalities of pelvic organs, first trimester; N83.209 Unspecified ovarian cyst, unspecified side; Z3A.10 10 weeks gestation of pregnancy; Z68.41 Body mass index [BMI] 40.0-44.9, adult
CPT/HCPCS: 36415; 76817; 80053; 82948; 85025; 87804; 93005; 94640; 94760; 96365; 96375; 96376; 99285; G0378; J2920; J2930; J3475

== ENCOUNTER 2017-06-24 12:22 | Emergency (ER) | payer OTHER, MEDICAID ==
[2017-06-24 12:22] VITALS: BMI 41.7
[2017-06-24 12:39] VITALS: TEMP 98.1
[2017-06-24 13:05] VITALS: BP 95/51; PULSE 76; RESP 16; O2SAT 98
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
== END 2017-06-24 17:45 | disposition home or self-care (01) ==
LOC: ED 12:22
DX: O26.891 Other specified pregnancy related conditions, first trimester (principal); Z3A.12 12 weeks gestation of pregnancy; R10.9 Unspecified abdominal pain; M54.2 Cervicalgia

== ENCOUNTER 2017-07-10 14:12 | Emergency (ER) | payer MEDICAID, OTHER ==
[2017-07-10 14:13] VITALS: BMI 41.7
[2017-07-10 14:24] VITALS: RESP 18
--- NOTE | 2017-07-10 14:57 | ED PDOC ---
Arrival/HPI - General Historian: Patient - General Chief Complaint: Headache Time Seen by Provider: 07/10/17 14:16 - History of Present Illness Narrative History of Present Illness (Text): 07/10/17 14:37 37yo female with PMhx of Asthma who is currently 14weeks present with complaint of frontal headache since yesterday. She notes previous history of same headache, states it usually resolve within a day but not this time. States she took Extra strength Tylenol yesterday. She denies nausea, vomiting, photophobia, focal weakness, fever, neck pain, nuchal ridigty, trauma, abdominal pain, vaginal bleeding. (Rashi Neal A) Past Medical History - Provider Review Nursing Documentation Reviewed: Yes - Past History Past History: Non-Contributing - Infectious Disease Hx of Infectious Diseases: None - Tetanus Immunization Tetanus Immunization: Unknown - Cardiac Hx Cardiac Disorders: No - Pulmonary Hx Respiratory Disorders: Yes Hx Asthma: Yes - Neurological Hx Neurological Disorder: Yes Other/Comment: nerve pain neck - HEENT Hx HEENT Disorder: No - Renal Hx Renal Disorder: No - Endocrine/Metabolic Hx Endocrine Disorders: No - Hematological/Oncological Hx Blood Disorders: No - Integumentary Hx Dermatological Disorder: No - Musculoskeletal/Rheumatological Hx Musculoskeletal Disorders: Yes Hx Arthritis: Yes (mary knee) - Gastrointestinal Hx Gastrointestinal Disorders: No - Genitourinary/Gynecological Hx Genitourinary Disorders: Yes Other/Comment: ovarian cyst and uterine fibroid - Psychiatric Hx Psychophysiologic Disorder: No Hx Substance Use: No (Marijuana) - Past Surgical History Past Surgical History: No Previous - Surgical History Other/Comment: drained abscess x2, ovarian cyst and uterine fibroid removed 10/21 ectopic - Anesthesia Hx Anesthesia: Yes Hx Anesthesia Reactions: No Hx Malignant Hyperthermia: No - Suicidal Assessment Feels Threatened In Home Enviroment: No Family/Social History - Physician Review Nursing Documentation Reviewed: Yes Family/Social History: Unknown Family HX Smoking Status: Former Smoker Hx Alcohol Use: Yes (Socially) Hx Substance Use: No (Marijuana) Hx Substance Use Treatment: No Allergies/Home Meds Allergies/Adverse Reactions: Allergies aspirin Allergy (Intermediate, Verified 07/10/17 14:24) ANAPHYLAXIS "my throat swells and i get short of breath" Review of Systems - Physician Review All systems were reviewed & negative as marked: Yes - Review of Systems Constitutional: Normal Eyes: Normal ENT: Normal Respiratory: Normal Cardiovascular: Normal Gastrointestinal: Normal Genitourinary Female: Normal Musculoskeletal: Normal Skin: Normal Neurological: Headache. absent: Dizziness, Focal Weakness, Speech Changes Endocrine: Normal Hemo/Lymphatic: Normal Psychiatric: Normal Physical Exam Vital Signs Reviewed: Yes Temperature: Afebrile Blood Pressure: Normal Pulse: Regular Respiratory Rate: Normal Appearance: Positive for: Well-Appearing, Non-Toxic, Comfortable Pain Distress: None Mental Status: Positive for: Alert and Oriented X 3 - Systems Exam Head: Present: Atraumatic, Normocephalic Pupils: Present: PERRL Extroacular Muscles: Present: EOMI Conjunctiva: Present: Normal Mouth: Present: Moist Mucous Membranes Neck: Present: Normal Range of Motion Respiratory/Chest: Present: Clear to Auscultation, Good Air Exchange. No: Respiratory Distress, Accessory Muscle Use Cardiovascular: Present: Regular Rate and Rhythm, Normal S1, S2. No: Murmurs Abdomen: No: Tenderness, Distention, Peritoneal Signs Back: Present: Normal Inspection Upper Extremity: Present: Normal Inspection. No: Cyanosis, Edema Lower Extremity: Present: Normal Inspection. No: Edema Neurological: Present: GCS=15, CN II-XII Intact, Speech Normal, Motor Func Grossly Intact, Normal Sensory Function, Normal Cerebellar Funct, Norm Deep Tendon Reflexes, Memory Normal, Normal 2Pt Descrimination, Other (No focal neurological deficit) Skin: Present: Warm, Dry, Normal Color. No: Rashes Psychiatric: Present: Alert, Oriented x 3, Normal Insight, Normal Concentration Vital Signs Temp Pulse Resp BP Pulse Ox 07/10/17 15:51 62 18 110/66 99 07/10/17 15:35 98.2 F 61 18 108/51 L 100 07/10/17 14:22 97.7 F 67 18 111/58 L 99 Medical Decision Making ED Course and Treatment: 07/10/17 15:36 Pt in ED for stated history. She was neurologically intact. Denies trauma, vaginal bleeding, abdominal pain. On re evaluation pt states her headache resolved. She was advised to take Tylenol for headache and f/u with her OB. ( Rashi Neal A) - Medication Orders Current Medication Orders: Discontinued Medications Acetaminophen (Tylenol 325mg Tab) 650 mg PO STAT STA Stop: 07/10/17 14:37 Last Admin: 07/10/17 14:40 Dose: 650 mg MAR Pain/Vitals Document 07/10/17 14:40 OCS (Rec: 07/10/17 14:48 OCS [id number]) Pain Reassessment Is This A Pain ReAssessment? Yes Sleep Is patient sleeping during reassessment? No Presence of Pain Presence of Pain Yes Pain Scale Used Pain Scale Used Numeric Location Pain Location Body Canary Raiser Description Constant Intensity 5 Scale Used Numeric Disposition/Present on Arrival - Present on Arrival Any Indicators Present on Arrival: No History of DVT/PE: No History of Uncontrolled Diabetes: No Urinary Catheter: No History of Decub. Ulcer: No History Surgical Site Infection Following: None - Disposition Have Diagnosis and Disposition been Completed?: Yes Disposition Time: 15:35 Patient Plan: Discharge - Disposition Diagnosis: Headache Disposition: HOME/ ROUTINE Condition: STABLE Discharge Instructions (ExitCare): Headache, Adult Additional Instructions: Follow up with your doctor/OB Return to ED for any new or worsening symptoms [facility]errals[facility] [[facility] - Follow up with primary Forms: [employer] (Ecuadorean)
[2017-07-10 15:36] VITALS: TEMP 98.2
[2017-07-10 15:52] VITALS: BP 110/66; PULSE 62; O2SAT 99
== END 2017-07-10 15:52 | disposition home or self-care (01) ==
LOC: ED 14:12
DX: O26.892 Other specified pregnancy related conditions, second trimester (principal); Z3A.14 14 weeks gestation of pregnancy; R51 Headache

== ENCOUNTER 2017-07-28 12:33 | Observation (INO) | payer MEDICAID ==
[2017-07-28 12:42] VITALS: BMI 45.4
--- NOTE | 2017-07-28 13:09 | ED PDOC ---
Arrival/HPI - General Time Seen by Provider: 07/28/17 12:35 Historian: Patient - History of Present Illness Narrative History of Present Illness (Text): 07/28/17 13:04 Patient is a 37 year old female, with past medical history of asthma, currently 17 weeks , presents to the Emergency Department complaining of shortness of breath, cough and wheezing since yesterday. Patient reports unimproved symptoms after ventolin pump and notes symptoms are consistent with previous episodes of asthma. Patient additionally reports bilateral calf discomfort but denies any swelling or trauma. Patient denies any fever, chills, nausea, vomiting, diarrhea, abdominal pain, chest pain, vaginal bleeding or any other complaints. Time/Duration: 24 hours Symptom Onset: Gradual Symptom Course: Unchanged Activities at Onset: Light Context: Home Past Medical History - Provider Review Nursing Documentation Reviewed: Yes - Past History Past History: Non-Contributing - Infectious Disease Hx of Infectious Diseases: None - Tetanus Immunization Tetanus Immunization: Unknown - Cardiac Hx Cardiac Disorders: No - Pulmonary Hx Respiratory Disorders: Yes Hx Asthma: Yes - Neurological Hx Neurological Disorder: Yes Other/Comment: nerve pain neck - HEENT Hx HEENT Disorder: No - Renal Hx Renal Disorder: No - Endocrine/Metabolic Hx Endocrine Disorders: No - Hematological/Oncological Hx Blood Disorders: No - Integumentary Hx Dermatological Disorder: No - Musculoskeletal/Rheumatological Hx Musculoskeletal Disorders: Yes Hx Arthritis: Yes (mary knee) - Gastrointestinal Hx Gastrointestinal Disorders: No - Genitourinary/Gynecological Hx Genitourinary Disorders: Yes Other/Comment: ovarian cyst and uterine fibroid - Psychiatric Hx Psychophysiologic Disorder: No Hx Substance Use: No (Marijuana) - Past Surgical History Past Surgical History: No Previous - Surgical History Other/Comment: drained abscess x2, ovarian cyst and uterine fibroid removed 10/21 ectopic - Anesthesia Hx Anesthesia: Yes Hx Anesthesia Reactions: No Hx Malignant Hyperthermia: No - Suicidal Assessment Feels Threatened In Home Enviroment: No Family/Social History - Physician Review Nursing Documentation Reviewed: Yes Family/Social History: No Known Family HX Smoking Status: Former Smoker Hx Alcohol Use: Yes (Socially) Hx Substance Use: No (Marijuana) Hx Substance Use Treatment: No Allergies/Home Meds Allergies/Adverse Reactions: Allergies aspirin Allergy (Intermediate, Verified 07/28/17 12:59) ANAPHYLAXIS "my throat swells and i get short of breath" Review of Systems - Physician Review All systems were reviewed & negative as marked: Yes - Review of Systems Constitutional: Normal. absent: Fevers Eyes: Normal ENT: Normal Respiratory: SOB, Cough, Wheezing Cardiovascular: Normal. absent: Chest Pain Gastrointestinal: Normal. absent: Abdominal Pain, Diarrhea, Nausea, Vomiting Genitourinary Female: Normal Musculoskeletal: Normal Skin: Normal Neurological: Normal Endocrine: Normal Hemo/Lymphatic: Normal Psychiatric: Normal Physical Exam - Physical Exam Narrative Physical Exam (Text): 07/28/17 13:11 Head: Atraumatic. Normocephalic. Eyes: PERRL. EOMI. Conjunctivae are not pale. ENT: Mucous membranes are moist and intact. Oropharynx is clear and symmetric. Neck: Supple. Full ROM. No JVD. No lymphadenopathy. Cardiovascular: Regular rate. Regular rhythm. No murmurs, rubs, or gallops. Distal pulses are 2+ and symmetric. Pulmonary/Chest: Diffused expiratory wheeze bilaterally. Abdominal: Soft and non-distended. There is no tenderness. No rebound, guarding, or rigidity. No organomegaly. Good bowel sounds. Back: No CVA tenderness. Extremities: No lower extremity edema although complains of calf pain. No cyanosis. No clubbing. Full range of motion in all extremities. Skin: Skin is warm and dry. No petechiae. No purpura. Neurological: Alert, awake, and oriented to person, place, time, and situation. Normal speech. Psychiatric: Good eye contact. Normal interaction, affect, and behavior. Vital Signs Reviewed: Yes Vital Signs Temp Pulse Resp BP Pulse Ox 07/28/17 15:02 80 20 109/54 L 100 07/28/17 13:15 20 07/28/17 13:00 98.2 F 82 20 103/55 L 97 Temperature: Afebrile Blood Pressure: Normal Pulse: Regular Respiratory Rate: Normal Appearance: Positive for: Well-Appearing, Non-Toxic, Comfortable Pain Distress: None Mental Status: Positive for: Alert and Oriented X 3 Medical Decision Making ED Course and Treatment: 07/28/17 13:00 Impression: 37 year old female presents to the Emergency Department for shortness of breath, wheezing and cough. Differential Diagnosis included but are not limited to: asthma exacerbation Plan: --EKG -- Labs -- Albuterol -- Solumedrol -- Ultrasound of Lower Extremity -- Reassess and disposition Prior Visits: Patient was last seen in the Emergency Department for asthma exacerbation on 02/15 and was admitted to the hospital for further observation. Progress Notes: 07/28/17 15:58 Ultrasound of lower extremity reviewed by radiologist, shows: FINDINGS: The visualized deep venous systems of both lower extremities are sonographically normal and compressible. Normal wave forms and augmentation are seen. There is no sonographic evidence for deep venous thrombosis in the visualized segments of both lower extremities. IMPRESSION: No sonographic evidence for deep venous thrombosis in the visualized segments of both lower extremities - Lab Interpretations Lab Results: 07/28/17 13:30 07/28/17 13:30 Lab Results 07/28/17 14:10: Influenza Typ A,B (EIA) Negative for flu a/b 07/28/17 13:30: Sodium 140, Potassium 3.6, Chloride 107, Carbon Dioxide 23, Anion Gap 14, BUN 6 L, Creatinine 0.7, Est GFR ( Amer) > 60, Est GFR (Non -Af Amer) > 60, Random Glucose 77, Calcium 9.2, Total Bilirubin 0.4, AST 32, ALT 21, Alkaline Phosphatase 35 L D, Total Protein 6.6, Albumin 3.6, Globulin 3.0, Albumin/Globulin Ratio 1.2 07/28/17 13:30: WBC 7.1 D, RBC 3.86, Hgb 11.2 L, Hct 33.4 L, MCV 86.5, MCH 29.0 , MCHC 33.5, RDW 13.4, Plt Count 310, MPV 8.4, Gran % 55.4, Lymph % (Auto) 29.6 , [place] % (Auto) 8.6 H, Eos % (Auto) 5.8 H, Baso % (Auto) 0.6, Gran # 3.95, Lymph # (Auto) 2.1, [place] # (Auto) 0.6, Eos # (Auto) 0.4, Baso # (Auto) 0.04 - RAD Interpretation Radiology Orders: 07/28/17 13:00 DUPLEX LOWER EXTRM VEIN BILAT [US] Stat Surgery Aid: Radiologist - Medication Orders Current Medication Orders: Albuterol/Ipratropium (Duoneb 3 Mg/0.5 Mg (3 Ml) Ud) 3 ml IH Q4H HUSAM Methylprednisolone (Solu-Medrol) 40 mg IVP Q8H HUSAM Discontinued Medications Albuterol/Ipratropium (Duoneb 3 Mg/0.5 Mg (3 Ml) Ud) 3 ml IH Q15M HUSAM Stop: 07/28/17 13:46 Last Admin: 07/28/17 13:54 Dose: 3 ml Methylprednisolone (Solu-Medrol) 125 mg IVP STAT STA Stop: 07/28/17 13:07 Last Admin: 07/28/17 13:26 Dose: 125 mg IVP Administration Document 07/28/17 13:26 STEPAN (Rec: 07/28/17 13:26 [facility] [id number]) Charges for Administration # of IVP Administrations 1 - Scribe Statement The provider has reviewed the documentation as recorded by the Scribe Luh Parekh. All medical record entries made by the Scribe were at my direction and personally dictated by me. I have reviewed the chart and agree that the record accurately reflects my personal performance of the history, physical exam, medical decision making, and the department course for this patient. I have also personally directed, reviewed, and agree with the discharge instructions and disposition. Disposition/Present on Arrival - Present on Arrival History of DVT/PE: No History of Uncontrolled Diabetes: No Urinary Catheter: No History of Decub. Ulcer: No History Surgical Site Infection Following: None - Disposition
[2017-07-28] MEDS: Albuterol-Ipratrop 3 mg / 0.5 (3 ml) UD IH SCH ×5 (13:14→19:53)
[2017-07-28 13:45] LABS: BASO # 0.04 K/mm3 (0.0-2.0); BASO % 0.6 % (0.0-3.0); EOS # 0.4 (0.0-0.7); EOS % 5.8 % (1.5-5.0); GRAN # 3.95 (1.4-6.5); GRAN % 55.4 % (50.0-68.0); HEMOGLOBIN 11.2 g/dL (12.0-16.0); LYMPH # 2.1 (1.2-3.4); LYMPH % 29.6 % (22.0-35.0); MEAN CELL VOLUME 86.5 fl (80.0-105.0); MEAN CORPUSCULAR HGB CONC 33.5 g/dl (31.0-37.0); MEAN PLATELET VOLUME 8.4 fl (7.0-11.0); MONO # 0.6 (0.1-0.6); MONO % 8.6 % (1.0-6.0); RBC 3.86 10^6/uL (3.5-6.1); RED CELL DISTRIBUTION WIDTH 13.4 % (11.5-14.5); WHITE BLOOD COUNT 7.1 10^3/ul (4.5-11.0)
--- NOTE | 2017-07-28 14:31 | CP.PCM.HP ---
<Antelmo Gardner - Last Filed: 07/28/17 22:11> History of Present Illness - History of Present Illness History of Present Illness: PGY1 Medicine H&P for Dr. Daley cc: "difficulty breathing" 37 F with PMH of asthma who is 17 weeks [place] [facility] [place] complaint of difficulty breathing. Patient stated that it began yesterday morning. Patien's chest tightened up whihc made it hard to breath. She admits to wheezing. Patient attempted to use inhaler sevral times as well as nebulizer without relief. She woke up this morning with SOB and whezing then decided to come in because she did not want to use too much of inhaler. Patient has had three hospital admission in about three months. Patient was intubated twice in the past for asthma exacerbation (last in 2013). Denies sick contacts or recent illness. Admits productive cough with yellow sputum. Denies fever/chills, chest pain, palpitations, abdominal pain, nausea/vomiting, diarrhea, constipation, incontinence, or urinary symptoms. PMH: Asthma, 17 weeks Meds: albuterol in haler, duonebs nebulizer Allergy: ASA PSH: denies FH: asthma Social: former smoker - quit in 2013, denies EtOH/illicit drug use Present on Admission - Present on Admission Any Indicators Present on Admission: No History of DVT/PE: No History of Uncontrolled Diabetes: No Urinary Catheter: No Decubitus Ulcer Present: No History Surgical Site Infection Following: None Review of Systems - Review of Systems All systems: reviewed and no additional remarkable complaints except (as per HPI ) Past Patient History - Infectious Disease Hx of Infectious Diseases: None - Tetanus Immunizations Tetanus Immunization: Unknown - Past Medical History & Family History Past Medical History?: Yes - Past Social History Smoking Status: Former Smoker - CARDIAC Hx Cardiac Disorders: No - PULMONARY Hx Respiratory Disorders: Yes Hx Asthma: Yes - NEUROLOGICAL Hx Neurological Disorder: Yes Other/Comment: nerve pain neck - HEENT Hx HEENT Problems: No - RENAL Hx Chronic Kidney Disease: No - ENDOCRINE/METABOLIC Hx Endocrine Disorders: No - HEMATOLOGICAL/ONCOLOGICAL Hx Blood Disorders: No - INTEGUMENTARY Hx Dermatological Problems: No - MUSCULOSKELETAL/RHEUMATOLOGICAL Hx Musculoskeletal Disorders: Yes Hx Arthritis: Yes (mary knee) - GASTROINTESTINAL Hx Gastrointestinal Disorders: No - GENITOURINARY/GYNECOLOGICAL Hx Genitourinary Disorders: Yes Other/Comment: ovarian cyst and uterine fibroid - PSYCHIATRIC Hx Psychophysiologic Disorder: No Hx Substance Use: No (Marijuana) - SURGICAL HISTORY Other/Comment: drained abscess x2, ovarian cyst and uterine fibroid removed 10/21 ectopic - ANESTHESIA Hx Anesthesia: Yes Hx Anesthesia Reactions: No Hx Malignant Hyperthermia: No Meds Allergies/Adverse Reactions: Allergies Allergy/AdvReac Type Severity Reaction Status Date / Time aspirin Allergy Intermediate ANAPHYLAXIS Verified 07/28/17 20:49 Physical Exam - Constitutional Appears: No Acute Distress - Head Exam Head Exam: ATRAUMATIC, NORMOCEPHALIC - Eye Exam Eye Exam: EOMI, Normal appearance Pupil Exam: PERRL - ENT Exam ENT Exam: Mucous Membranes Moist - Neck Exam Neck exam: Positive for: Normal Inspection - Respiratory Exam Respiratory Exam: Wheezes, NORMAL BREATHING PATTERN. absent: Accessory Muscle Use, Decreased Breath Sounds - Cardiovascular Exam Cardiovascular Exam: RRR, +S1, +S2 - GI/Abdominal Exam GI & Abdominal Exam: Normal Bowel Sounds, Soft. absent: Tenderness - Extremities Exam Extremities exam: Positive for: normal capillary refill, pedal pulses present. Negative for: pedal edema - Back Exam Back exam: absent: CVA tenderness (L), CVA tenderness (R) - Neurological Exam Neurological exam: Alert, CN II-XII Intact, Oriented x3 - Psychiatric Exam Psychiatric exam: Normal Affect, Normal Mood - Skin Skin Exam: Dry, Intact, Normal Color, Warm Results - Labs Result Diagrams: 07/28/17 13:30 07/28/17 13:30 Labs: Laboratory Results - last 24 hr 07/28/17 13:30 WBC 7.1 D RBC 3.86 Hgb 11.2 L Hct 33.4 L MCV 86.5 MCH 29.0 MCHC 33.5 RDW 13.4 Plt Count 310 MPV 8.4 Gran % 55.4 Lymph % (Auto) 29.6 [place] % (Auto) 8.6 H Eos % (Auto) 5.8 H Baso % (Auto) 0.6 Gran # 3.95 Lymph # (Auto) 2.1 [place] # (Auto) 0.6 Eos # (Auto) 0.4 Baso # (Auto) 0.04 Assessment & Plan - Assessment and Plan (Free Text) Assessment: 37 F with PMH of asthma who is 17 weeks [place] [facility] [place] exacerbation Plan: 1. Asthma exacerbation Admit to telemetry Duonebs IH Q4H Solumedrol 40 mg IVP Q8H Rocephin 1 gm IVPB daily Regular diet f/u daily labs Monitor case discussed with Dr. Edi Gardner PGY1 <Leonard Daley - Last Filed: 07/29/17 17:08> Results - Vital Signs Recent Vital Signs: Last Vital Signs Temp 98 F 07/29/17 12:00 Pulse 88 07/29/17 12:00 Resp 18 07/29/17 12:00 BP 114/59 L 07/29/17 12:00 Pulse Ox 100 07/29/17 09:00 - Labs Result Diagrams: 07/29/17 07:00 07/29/17 07:00 Labs: Laboratory Results - last 24 hr 07/29/17 07/29/17 07:00 07:00 WBC 12.3 H D RBC 3.66 Hgb 10.6 L Hct 31.5 L MCV 86.1 MCH 29.0 MCHC 33.7 RDW 13.2 Plt Count 305 MPV 8.7 Gran % 88.3 H Lymph % (Auto) 8.3 L [place] % (Auto) 3.3 Eos % (Auto) 0.0 L Baso % (Auto) 0.1 Gran # 10.87 H Lymph # (Auto) 1.0 L [place] # (Auto) 0.4 Eos # (Auto) 0.0 Baso # (Auto) 0.01 Sodium 142 Potassium 4.0 Chloride 110 H Carbon Dioxide 20 L Anion Gap 16 BUN 9 Creatinine 0.6 L Est GFR ( Amer) > 60 Est GFR (Non-Af Amer) > 60 Random Glucose 144 H Calcium 9.7 Total Bilirubin 0.3 AST 25 ALT 31 Alkaline Phosphatase 39 Total Protein 6.6 Albumin 3.7 Globulin 2.9 Albumin/Globulin Ratio 1.3 Attending/Attestation - Attestation I have personally seen and examined this patient.: Yes I have fully participated in the care of the patient.: Yes I have reviewed all pertinent clinical information: Yes Notes (Text): 07/29/17 17:04 Medical record note made by the resident after discussion with my direction and input after the patient was personally seen and examined by me. I have reviewed the chart and agree that the record accurately reflects by personal performance of the history, physical exam, data review, and medical decision-making, in the course for the patient. I have also personally directed the plan of care. 37 F with PMH of asthma who is 17 weeks is admitted with acute asthma exacerbation.Wheezing is already improving.We will admit the patient for observation.We will start patient on Neb/Steroid and IV rocephin. If patient keep improving, she can be discharged home in 24 hour. Patient denies any abdominal pain or any vaginal discharge at this time.She already has scheduled appointment with her OBGYN on 07/30/17 Management plan was discussed in detail with patient. Education was provided.
[2017-07-28 14:40] LABS: ALB/GLOB RATIO 1.2 (1.1-1.8); ALBUMIN 3.6 g/dL (3.0-4.8); ALT/SGPT 21 U/L (7-56); AST/SGOT 32 U/L (14-36); BLOOD UREA NITROGEN 6 mg/dL (7-21); CALCIUM 9.2 mg/dL (8.4-10.5); GFR AFRICAN-AMERICAN > 60; GFR NON-AFRICAN AMERICAN > 60
--- NOTE | 2017-07-28 15:38 | US ---
HISTORY: Leg pain and swelling. Evaluate for DVT PHYSICIAN(S): Nestor Florez MD. TECHNIQUE: Duplex sonography and color-flow Doppler with graded compression were used to evaluate the deep venous systems of both lower extremities. FINDINGS: The visualized deep venous systems of both lower extremities are sonographically normal and compressible. Normal wave forms and augmentation are seen. There is no sonographic evidence for deep venous thrombosis in the visualized segments of both lower extremities. IMPRESSION: No sonographic evidence for deep venous thrombosis in the visualized segments of both lower extremities.
[2017-07-28] MEDS: MethylPREDNISolone 40 mg Vial IVP SCH ×2 (15:45→23:52)
[2017-07-28 16:01] LABS: ARTERIAL BLOOD GAS HCO3 20.2 mmol/L (21-28); ARTERIAL BLOOD GAS HEMOGLOBIN 11.1 g/dL (11.7-17.4); ARTERIAL BLOOD GAS O2 CAPACITY 15.3 mL/dl (16-24); ARTERIAL BLOOD GAS O2 CONTENT 15.2 ML/dl (15-23); ARTERIAL BLOOD GAS O2 SAT 99.2 % (95-98); ARTERIAL BLOOD GAS PCO2 29 mm/Hg (35-45); ARTERIAL BLOOD GAS PH 7.45 (7.35-7.45); ARTERIAL BLOOD GAS TCO2 21.1 mmol.L (22-28)
[2017-07-28] MEDS: cefTRIAXone 1 gm 1 GM/100 ML BAG IVPB SCH (16:42)
--- NOTE | 2017-07-28 16:45 | CARD ---
APPROVED REPORT EKG Measurement Heart [id number] <Conclusion> Normal sinus rhythm Normal ECG
[2017-07-28] MEDS ORDERED: Pneumococcal 23-Valent Vaccine IM ONE (22:07)
[2017-07-29] MEDS: Albuterol-Ipratrop 3 mg / 0.5 (3 ml) UD IH SCH ×4 (01:53→11:17)
[2017-07-29 07:13] LABS: BASO # 0.01 K/mm3 (0.0-2.0); BASO % 0.1 % (0.0-3.0); GRAN # 10.87 (1.4-6.5); GRAN % 88.3 % (50.0-68.0); HEMOGLOBIN 10.6 g/dL (12.0-16.0); LYMPH % 8.3 % (22.0-35.0); MEAN CELL VOLUME 86.1 fl (80.0-105.0); MEAN CORPUSCULAR HGB CONC 33.7 g/dl (31.0-37.0); MEAN PLATELET VOLUME 8.7 fl (7.0-11.0); MONO # 0.4 (0.1-0.6); MONO % 3.3 % (1.0-6.0); RBC 3.66 10^6/uL (3.5-6.1); RED CELL DISTRIBUTION WIDTH 13.2 % (11.5-14.5); WHITE BLOOD COUNT 12.3 10^3/ul (4.5-11.0)
--- NOTE | 2017-07-29 07:26 | CP.PCM.PN ---
Objective - Vital Signs/Intake and Output Vital Signs (last 24 hours): Temp Pulse Resp BP Pulse Ox 98.4 F 81 20 100/54 L 97 07/29/17 06:00 07/29/17 06:00 07/29/17 06:00 07/29/17 06:00 07/29/17 06:00 Intake and Output: 07/29/17 07/29/17 06:59 18:59 Intake Total 840 Balance 840 - Medications Medications: Current Medications Albuterol/Ipratropium (Duoneb 3 Mg/0.5 Mg (3 Ml) Ud) 3 ml IH Q4H HUSAM Last Admin: 07/29/17 05:00 Dose: Not Given Ceftriaxone Sodium (Rocephin 1 Gram Ivpb) 1 gm in 100 mls @ 100 mls/hr IVPB DAILY HUSAM PRN Reason: Protocol Last Admin: 07/28/17 16:42 Dose: 100 mls/hr Methylprednisolone (Solu-Medrol) 40 mg IVP Q8H HUSAM Last Admin: 07/28/17 23:52 Dose: 40 mg - Labs Labs: 07/29/17 07:00
[2017-07-29 07:39] LABS: ALB/GLOB RATIO 1.3 (1.1-1.8); ALBUMIN 3.7 g/dL (3.0-4.8); ALT/SGPT 31 U/L (7-56); AST/SGOT 25 U/L (14-36); BLOOD UREA NITROGEN 9 mg/dL (7-21); CALCIUM 9.7 mg/dL (8.4-10.5); GFR AFRICAN-AMERICAN > 60; GFR NON-AFRICAN AMERICAN > 60
[2017-07-29] MEDS: MethylPREDNISolone 40 mg Vial IVP SCH (08:33)
[2017-07-29] MEDS: cefTRIAXone 1 gm 1 GM/100 ML BAG IVPB SCH (10:40)
--- NOTE | 2017-07-29 11:43 | CP.PCM.DIS ---
<JjAntelmo - Last Filed: 07/29/17 14:32> Provider - Provider Date of Admission: 07/28/17 14:41 Attending physician: Leonard Daley MD Consults: NONE Time Spent in preparation of Discharge (in minutes): 45 Hospital Course - Lab Results Lab Results: Most Recent Lab Values WBC 12.3 10^3/ul (4.5-11.0) H D 07/29/17 07:00 RBC 3.66 10^6/uL (3.5-6.1) 07/29/17 07:00 Hgb 10.6 g/dL (12.0-16.0) L 07/29/17 07:00 Hct 31.5 % (36.0-48.0) L 07/29/17 07:00 MCV 86.1 fl (80.0-105.0) 07/29/17 07:00 MCH 29.0 pg (25.0-35.0) 07/29/17 07:00 MCHC 33.7 g/dl (31.0-37.0) 07/29/17 07:00 RDW 13.2 % (11.5-14.5) 07/29/17 07:00 Plt Count 305 10^3/uL (120.0-450.0) 07/29/17 07:00 MPV 8.7 fl (7.0-11.0) 07/29/17 07:00 Gran % 88.3 % (50.0-68.0) H 07/29/17 07:00 Lymph % (Auto) 8.3 % (22.0-35.0) L 07/29/17 07:00 Mellette % (Auto) 3.3 % (1.0-6.0) 07/29/17 07:00 Eos % (Auto) 0.0 % (1.5-5.0) L 07/29/17 07:00 Baso % (Auto) 0.1 % (0.0-3.0) 07/29/17 07:00 Gran # 10.87 (1.4-6.5) H 07/29/17 07:00 Lymph # (Auto) 1.0 (1.2-3.4) L 07/29/17 07:00 Mellette # (Auto) 0.4 (0.1-0.6) 07/29/17 07:00 Eos # (Auto) 0.0 (0.0-0.7) 07/29/17 07:00 Baso # (Auto) 0.01 K/mm3 (0.0-2.0) 07/29/17 07:00 pCO2 29 mm/Hg (35-45) L 07/28/17 15:50 pO2 97.0 mm/Hg (80-100) 07/28/17 15:50 HCO3 20.2 mmol/L (21-28) L 07/28/17 15:50 ABG pH 7.45 (7.35-7.45) 07/28/17 15:50 ABG Total CO2 21.1 mmol.L (22-28) L 07/28/17 15:50 ABG O2 Saturation 99.2 % (95-98) H 07/28/17 15:50 ABG O2 Content 15.2 ML/dl (15-23) 07/28/17 15:50 ABG Base Excess -2.9 mmol/L (-2.0-3.0) L 07/28/17 15:50 ABG Hemoglobin 11.1 g/dL (11.7-17.4) L 07/28/17 15:50 ABG Carboxyhemoglobin 1.7 % (0.5-1.5) H 07/28/17 15:50 POC ABG HHb (Measured) 0.8 % (0-5) 07/28/17 15:50 ABG Methemoglobin 0.8 % (0.0-3.0) 07/28/17 15:50 ABG O2 Capacity 15.3 mL/dl (16-24) L 07/28/17 15:50 Hgb O2 Saturation 96.6 % (95.0-98.0) 07/28/17 15:50 FiO2 21.0 % 07/28/17 15:50 Sodium 142 mmol/L (132-148) 07/29/17 07:00 Potassium 4.0 mmol/L (3.6-5.0) 07/29/17 07:00 Chloride 110 mmol/L (98-107) H 07/29/17 07:00 Carbon Dioxide 20 mmol/L (21-33) L 07/29/17 07:00 Anion Gap 16 (10-20) 07/29/17 07:00 BUN 9 mg/dL (7-21) 07/29/17 07:00 Creatinine 0.6 mg/dl (0.7-1.2) L 07/29/17 07:00 Est GFR ( Amer) > 60 07/29/17 07:00 Est GFR (Non-Af Amer) > 60 07/29/17 07:00 Random Glucose 144 mg/dL (70-110) H 07/29/17 07:00 Calcium 9.7 mg/dL (8.4-10.5) 07/29/17 07:00 Total Bilirubin 0.3 mg/dL (0.2-1.3) 07/29/17 07:00 AST 25 U/L (14-36) 07/29/17 07:00 ALT 31 U/L (7-56) 07/29/17 07:00 Alkaline Phosphatase 39 U/L (38-126) 07/29/17 07:00 Total Protein 6.6 g/dL (5.8-8.3) 07/29/17 07:00 Albumin 3.7 g/dL (3.0-4.8) 07/29/17 07:00 Globulin 2.9 gm/dL 07/29/17 07:00 Albumin/Globulin Ratio 1.3 (1.1-1.8) 07/29/17 07:00 Influenza Typ A,B (EIA) Negative for flu a/b (NEGATIVE) 07/28/17 14:10 - Hospital Course Hospital Course: 37 F with PMH of asthma who is 17 weeks [place] [facility] of difficulty breathing. Patient stated that it began yesterday morning. Patien's chest tightened up which made it hard to breath. She admits to wheezing. Patient attempted to use inhaler several times as well as nebulizer without relief. She woke up this morning with SOB and whezing then decided to come in because she did not want to use too much of inhaler. Patient has had three hospital admission in about three months. Patient was intubated twice in the past for asthma exacerbation (last in 2013). Denies sick contacts or recent illness. Admits productive cough with yellow sputum. Denies fever/ chills, chest pain, palpitations, abdominal pain, nausea/vomiting, diarrhea, constipation, incontinence, or urinary symptoms. Patient admitted for asthma exacerbation. She was started on duonebs and solu- medrol. Rocephin was given daily for empiric treatment. Patient remained inpatient overnight. The following morning, he breathing improved. Wheezing was very minimal. Patient was deemed medcially stable for discharge by Dr. Daley. Patient was sent home with prednisone taper and symbicort inhaler. Patient is to resume all home medications. Patient is following up with [employer] [employer] July 30. She is to follow up with PMD and establish with [facility]. (This is a summary of the hospital course. Please refer to EMR for more details. ) Discharge Exam - Head Exam Head Exam: ATRAUMATIC, NORMOCEPHALIC - Eye Exam Eye Exam: EOMI, Normal appearance Pupil Exam: PERRL - ENT Exam ENT Exam: Mucous Membranes Moist - Respiratory Exam Respiratory Exam: Wheezes (minimal), NORMAL BREATHING PATTERN. absent: Accessory Muscle Use, Decreased Breath Sounds, Respiratory Distress - Cardiovascular Exam Cardiovascular Exam: RRR, +S1, +S2 - GI/Abdominal Exam GI & Abdominal Exam: Normal Bowel Sounds, Soft. absent: Tenderness - Extremities Exam Extremities exam: normal capillary refill, pedal pulses present - Back Exam Back exam: absent: CVA tenderness (L), CVA tenderness (R) - Neurological Exam Neurological exam: Alert, CN II-XII Intact, Oriented x3 - Psychiatric Exam Psychiatric exam: Normal Affect, Normal Mood - Skin Skin Exam: Dry, Intact, Normal Color, Warm Discharge Plan - Discharge Medications Prescriptions: Albuterol HFA [Ventolin HFA 90 mcg/actuation (8 g)] 2 puff IH [id number] PRN #1 puff PRN Reason: Shortness Of Breath Budesonide/Formoterol Fumarate [Symbicort] 2 puff IH BID #1 aer predniSONE [Prednisone] See Taper PO DAILY #20 tab - Follow Up Plan Condition: GOOD Disposition: HOME/ ROUTINE Instructions: Asthma in Adults, Asthma and , Asthma (DC), Asthma (GEN) Additional Instructions: Discharge instructions: Take prednisone taper and Symbicort as prescribed Resume al other home medications as previously prescribed Follow up with PMD and [employer] [facility] within 1-2 weeks Establish and follow up with [facility] Refrain from extreme weather conditions and allergens Please return to ED if symptoms persist or condition worsens Referrals: [facility], [Non-Staff] - <Leonard Daley - Last Filed: 07/29/17 17:11> Provider - Provider Date of Admission: 07/28/17 14:41 Attending physician: Leonard Daley MD Hospital Course - Lab Results Lab Results: Most Recent Lab Values WBC 12.3 10^3/ul (4.5-11.0) H D 07/29/17 07:00 RBC 3.66 10^6/uL (3.5-6.1) 07/29/17 07:00 Hgb 10.6 g/dL (12.0-16.0) L 07/29/17 07:00 Hct 31.5 % (36.0-48.0) L 07/29/17 07:00 MCV 86.1 fl (80.0-105.0) 07/29/17 07:00 MCH 29.0 pg (25.0-35.0) 07/29/17 07:00 MCHC 33.7 g/dl (31.0-37.0) 07/29/17 07:00 RDW 13.2 % (11.5-14.5) 07/29/17 07:00 Plt Count 305 10^3/uL (120.0-450.0) 07/29/17 07:00 MPV 8.7 fl (7.0-11.0) 07/29/17 07:00 Gran % 88.3 % (50.0-68.0) H 07/29/17 07:00 Lymph % (Auto) 8.3 % (22.0-35.0) L 07/29/17 07:00 Mellette % (Auto) 3.3 % (1.0-6.0) 07/29/17 07:00 Eos % (Auto) 0.0 % (1.5-5.0) L 07/29/17 07:00 Baso % (Auto) 0.1 % (0.0-3.0) 07/29/17 07:00 Gran # 10.87 (1.4-6.5) H 07/29/17 07:00 Lymph # (Auto) 1.0 (1.2-3.4) L 07/29/17 07:00 Mellette # (Auto) 0.4 (0.1-0.6) 07/29/17 07:00 Eos # (Auto) 0.0 (0.0-0.7) 07/29/17 07:00 Baso # (Auto) 0.01 K/mm3 (0.0-2.0) 07/29/17 07:00 pCO2 29 mm/Hg (35-45) L 07/28/17 15:50 pO2 97.0 mm/Hg (80-100) 07/28/17 15:50 HCO3 20.2 mmol/L (21-28) L 07/28/17 15:50 ABG pH 7.45 (7.35-7.45) 07/28/17 15:50 ABG Total CO2 21.1 mmol.L (22-28) L 07/28/17 15:50 ABG O2 Saturation 99.2 % (95-98) H 07/28/17 15:50 ABG O2 Content 15.2 ML/dl (15-23) 07/28/17 15:50 ABG Base Excess -2.9 mmol/L (-2.0-3.0) L 07/28/17 15:50 ABG Hemoglobin 11.1 g/dL (11.7-17.4) L 07/28/17 15:50 ABG Carboxyhemoglobin 1.7 % (0.5-1.5) H 07/28/17 15:50 POC ABG HHb (Measured) 0.8 % (0-5) 07/28/17 15:50 ABG Methemoglobin 0.8 % (0.0-3.0) 07/28/17 15:50 ABG O2 Capacity 15.3 mL/dl (16-24) L 07/28/17 15:50 Hgb O2 Saturation 96.6 % (95.0-98.0) 07/28/17 15:50 FiO2 21.0 % 07/28/17 15:50 Sodium 142 mmol/L (132-148) 07/29/17 07:00 Potassium 4.0 mmol/L (3.6-5.0) 07/29/17 07:00 Chloride 110 mmol/L (98-107) H 07/29/17 07:00 Carbon Dioxide 20 mmol/L (21-33) L 07/29/17 07:00 Anion Gap 16 (10-20) 07/29/17 07:00 BUN 9 mg/dL (7-21) 07/29/17 07:00 Creatinine 0.6 mg/dl (0.7-1.2) L 07/29/17 07:00 Est GFR ( Amer) > 60 07/29/17 07:00 Est GFR (Non-Af Amer) > 60 07/29/17 07:00 Random Glucose 144 mg/dL (70-110) H 07/29/17 07:00 Calcium 9.7 mg/dL (8.4-10.5) 07/29/17 07:00 Total Bilirubin 0.3 mg/dL (0.2-1.3) 07/29/17 07:00 AST 25 U/L (14-36) 07/29/17 07:00 ALT 31 U/L (7-56) 07/29/17 07:00 Alkaline Phosphatase 39 U/L (38-126) 07/29/17 07:00 Total Protein 6.6 g/dL (5.8-8.3) 07/29/17 07:00 Albumin 3.7 g/dL (3.0-4.8) 07/29/17 07:00 Globulin 2.9 gm/dL 07/29/17 07:00 Albumin/Globulin Ratio 1.3 (1.1-1.8) 07/29/17 07:00 Influenza Typ A,B (EIA) Negative for flu a/b (NEGATIVE) 07/28/17 14:10 Attending/Attestation - Attestation I have personally seen and examined this patient.: Yes I have fully participated in the care of the patient.: Yes I have reviewed all pertinent clinical information, including history, physical exam and plan: Yes Notes (Text): 07/29/17 17:09 Medical record note made by the resident after discussion with my direction and input after the patient was personally seen and examined by me. I have reviewed the chart and agree that the record accurately reflects by personal performance of the history, physical exam, data review, and medical decision-making, in the course for the patient. I have also personally directed the plan of care. 37 F with PMH of asthma who is 17 weeks was admitted with acute asthma exacerbation.She has responded well to Neb/Prednisone She will be discharged home on tapering dose of Prednisone, steroid inhaler and albuterol inhaler. Patient denies any abdominal pain or any vaginal discharge at this time.She already has scheduled appointment with her OBGYN tomorrow on 07/30/17 Management plan was discussed in detail with patient. Education was provided.
[2017-07-29 12:15] VITALS: BP 114/59; PULSE 88; RESP 18; TEMP 98
[2017-07-29 13:13] VITALS: O2SAT 100
== END 2017-07-29 14:40 | disposition home or self-care (01) ==
LOC: ED 12:33 → INTOOBSV 14:41 → ERH 14:41 → 2RSO 18:34
PROVIDERS: ADMIT Internal Medicine; ATTEND Internal Medicine
DX: O99.512 Diseases of the respiratory system complicating pregnancy, second trimester (principal); J45.901 Unspecified asthma with (acute) exacerbation; Z3A.17 17 weeks gestation of pregnancy; Z87.891 Personal history of nicotine dependence
CPT/HCPCS: 36415; 80053; 82803; 85025; 87804; 93005; 93970; 94150; 94640; 96365; 96375; 99285; G0378; J0696; J2920; J2930

== ENCOUNTER 2017-08-18 00:52 | Emergency (ER) | payer MEDICAID, OTHER ==
[2017-08-18 01:19] VITALS: BMI 45.4
[2017-08-18 01:30] VITALS: RESP 18; TEMP 98.5
--- NOTE | 2017-08-18 01:33 | ED PDOC ---
Arrival/HPI - General Chief Complaint: Cough, Cold, Congestion Time Seen by Provider: 08/18/17 01:21 Historian: Patient - History of Present Illness Narrative History of Present Illness (Text): 08/18/17 01:33 Arminda Finch is a 37 year old female, whose past medical history includes asthma , who presents to the Emergency department complaining of shortness of breath and wheezing. Patient states symptoms are consistent with her previous episodes of asthma and notes she has been sick for the past few days with nasal congestion, sore throat, headache, and chills. Patient states she has been using her inhaler with minimal relief. Patient currently 20 weeks . Patient denies any chest pain, nausea, vomiting, diarrhea, urinary symptoms, back pain, neck pain, headache, dizziness, or any other complaints. Symptom Onset: Gradual Symptom Course: Unchanged Activities at Onset: Light Context: Home Past Medical History - Provider Review Nursing Documentation Reviewed: Yes - Past History Past History: Non-Contributing - Infectious Disease Hx of Infectious Diseases: None - Tetanus Immunization Tetanus Immunization: Unknown - Cardiac Hx Cardiac Disorders: No - Pulmonary Hx Asthma: Yes Hx Bronchitis: Yes Hx Sleep Apnea: Yes (confirmed by sleep study, mild) - Neurological Hx Neurological Disorder: Yes Other/Comment: nerve pain neck - HEENT Hx HEENT Disorder: No - Renal Hx Renal Disorder: No - Endocrine/Metabolic Hx Endocrine Disorders: No - Hematological/Oncological Hx Blood Disorders: No - Integumentary Hx Dermatological Disorder: No - Musculoskeletal/Rheumatological Hx Arthritis: Yes (mary knee) Hx Fractures: Yes (left fibula) - Gastrointestinal Hx Gastrointestinal Disorders: No - Genitourinary/Gynecological Hx Genitourinary Disorders: Yes Other/Comment: ovarian cyst and uterine fibroid - Psychiatric Hx Depression: No Hx Substance Use: No (Marijuana) - Past Surgical History Past Surgical History: No Previous - Surgical History Other/Comment: drained abscess x2, ovarian cyst and uterine fibroid removed 10/21 ectopic - Anesthesia Hx Anesthesia: Yes Hx Anesthesia Reactions: No Hx Malignant Hyperthermia: No - Suicidal Assessment Feels Threatened In Home Enviroment: No Family/Social History - Physician Review Nursing Documentation Reviewed: Yes Family/Social History: Unknown Family HX Smoking Status: Former Smoker Hx Alcohol Use: Yes (Socially) Hx Substance Use: No (Marijuana) Hx Substance Use Treatment: No Allergies/Home Meds Allergies/Adverse Reactions: Allergies aspirin Allergy (Intermediate, Verified 08/18/17 01:19) ANAPHYLAXIS "my throat swells and i get short of breath" Home Medications: Home Meds Medication Instructions Recorded Confirmed Albuterol/Ipratropium [Duoneb 3 3 ml IH Q6 PRN 07/28/17 08/18/17 mg/0.5 mg (3 ml) UD] Multivit/Folic Acid/I 1 tab PO DAILY 08/18/17 08/18/17 [] Review of Systems - Physician Review All systems were reviewed & negative as marked: Yes - Review of Systems Constitutional: Normal. absent: Fevers Eyes: Normal ENT: Sore Throat, Sinus Congestion Respiratory: SOB, Wheezing Cardiovascular: Normal. absent: Chest Pain Gastrointestinal: Normal. absent: Abdominal Pain, Diarrhea, Nausea, Vomiting Genitourinary Female: Normal. absent: Dysuria, Frequency, Hematuria, Urine Output Changes Musculoskeletal: Normal. absent: Back Pain, Neck Pain Skin: Normal. absent: Rash Neurological: Normal. absent: Headache, Dizziness Endocrine: Normal Hemo/Lymphatic: Normal Psychiatric: Normal Physical Exam Vital Signs Reviewed: Yes Vital Signs Temp Pulse Resp BP Pulse Ox 08/18/17 06:04 72 112/64 99 08/18/17 01:29 98.5 F 75 18 115/78 100 Temperature: Afebrile Blood Pressure: Normal Pulse: Regular Respiratory Rate: Normal Appearance: Positive for: Well-Appearing, Non-Toxic, Comfortable Pain Distress: None Mental Status: Positive for: Alert and Oriented X 3 - Systems Exam Head: Present: Atraumatic, Normocephalic Pupils: Present: PERRL Extroacular Muscles: Present: EOMI Conjunctiva: Present: Normal Mouth: Present: Moist Mucous Membranes Neck: Present: Normal Range of Motion Respiratory/Chest: Present: Wheezes (Wheezing bilaterally). No: Respiratory Distress, Accessory Muscle Use Cardiovascular: Present: Regular Rate and Rhythm, Normal S1, S2. No: Murmurs Abdomen: No: Tenderness, Distention, Peritoneal Signs Back: Present: Normal Inspection Upper Extremity: Present: Normal Inspection. No: Cyanosis, Edema Lower Extremity: Present: Normal Inspection. No: Edema Neurological: Present: GCS=15, CN II-XII Intact, Speech Normal Skin: Present: Warm, Dry, Normal Color. No: Rashes Psychiatric: Present: Alert, Oriented x 3, Normal Insight, Normal Concentration Medical Decision Making ED Course and Treatment: 08/18/17 01:33 Impression: 37 year old female complaining of shortness of breath and wheezing Differential Diagnosis included but are not limited to: asthma vs. bronchitis vs. URI Plan: -- Duoneb -- Solu-medrol -- Reassess and disposition Progress Notes: Reviewed EKG, NSR at [address]-segment elevations or depressions, no T-wave inversions, normal intervals. 08/18/17 05:40 On re-evaluation, patient feels better and is in no acute distress. I have discussed the results and plan with the patient, who expresses understanding. Patient in agreement with plan to be discharged home. Patient is stable for discharge. Patient was instructed to follow up with physician or return if symptoms worsen or new concerning symptoms arise. - EKG Interpretation Interpreted by ED Physician: Yes Type: 12 lead EKG - Medication Orders Current Medication Orders: Discontinued Medications Albuterol/Ipratropium (Duoneb 3 Mg/0.5 Mg (3 Ml) Ud) 3 ml IH Q15M HUSAM Stop: 08/18/17 02:16 Last Admin: 08/18/17 02:30 Dose: 3 ml Methylprednisolone (Solu-Medrol) 125 mg IVP ONCE ONE Stop: 08/18/17 01:43 Last Admin: 08/18/17 02:30 Dose: 125 mg IVP Administration Document 08/18/17 02:30 CNR (Rec: 08/18/17 02:30 CNR [id number]) Charges for Administration # of IVP Administrations 1 - Scribe Statement The provider has reviewed the documentation as recorded by the Bethany Ward Provider Scribe Attestation: All medical record entries made by the Scribe were at my direction and personally dictated by me. I have reviewed the chart and agree that the record accurately reflects my personal performance of the history, physical exam, medical decision making, and the department course for this patient. I have also personally directed, reviewed, and agree with the discharge instructions and disposition. Disposition/Present on Arrival - Present on Arrival Any Indicators Present on Arrival: No History of DVT/PE: No History of Uncontrolled Diabetes: No Urinary Catheter: No History of Decub. Ulcer: No History Surgical Site Infection Following: None - Disposition Have Diagnosis and Disposition been Completed?: Yes Diagnosis: Asthma Disposition: HOME/ ROUTINE Disposition Time: 05:40 Condition: GOOD Discharge Instructions (ExitCare): Asthma in Adults Prescriptions: predniSONE [predniSONE Tab] 20 mg PO TID #15 tab Forms: [employer] (Malay)
[2017-08-18] MEDS: Albuterol-Ipratrop 3 mg / 0.5 (3 ml) UD IH SCH ×3 (02:00→02:30)
[2017-08-18 06:09] VITALS: BP 112/64; PULSE 72; O2SAT 99
--- NOTE | 2017-08-18 09:29 | CARD ---
APPROVED REPORT EKG Measurement Heart [id number] <Conclusion> Normal sinus rhythm Normal ECG
== END 2017-08-18 06:04 | disposition home or self-care (01) ==
LOC: ED 00:52
DX: J45.909 Unspecified asthma, uncomplicated (principal); Z87.891 Personal history of nicotine dependence
CPT/HCPCS: 93005; 96374; 99282; J2930

== ENCOUNTER 2017-09-12 13:15 | Emergency (ER) | payer MEDICAID, OTHER ==
[2017-09-12 13:55] VITALS: TEMP 98.2; BMI 46.7
--- NOTE | 2017-09-12 14:49 | ED PDOC ---
Arrival/HPI <Canelo Coleman - Last Filed: 09/12/17 16:16> - General Historian: Patient <Pawel Murray - Last Filed: 09/12/17 19:17> - General Chief Complaint: Female Genitourinary Time Seen by Provider: 09/12/17 14:05 - History of Present Illness Narrative History of Present Illness (Text): 37 year old female at 24 weeks presents with vaginal bleeding that started today and pain and tingling of her lower left leg for 2 days. Patient reports that she has had a sharp, stabbing pain in her left leg that is unrelenting and has not been able to get relief from the pain. The pain progresses to tingling. Patient reports menstrual cramping-like pain this morning and vaginal spotting this morning. Patient was not very concerned about this. Patient reports that she had vaginal spotting in her first trimester and was diagnosed with placenta previa by her CABLEWAY OPERATOR physician, Dr. Servin at [facility]. Patient also reports severe left sided sharp, stabbing headache that she 's had since the beginning of her . Initially, she reports the pain would stay for 2-3 days, but now reports that the pain is still high in intensity but only lasts for a few minutes before receding. Patient reports constipation. Patient denies fever, shortness of breath, diarrhea, dysuria, hematuria, and weakness. Patient reports that she has only had one partner, does not report any STDs, and reports oligomenorrhea. 09/12/17 14:38 (Canelo Coleman) Past Medical History - Provider Review Nursing Documentation Reviewed: Yes - Past History Past History: Non-Contributing - Infectious Disease Hx of Infectious Diseases: None - Tetanus Immunization Tetanus Immunization: Unknown - Reproductive Menopause: No - Cardiac Hx Cardiac Disorders: No - Pulmonary Hx Asthma: Yes Hx Bronchitis: Yes Hx Sleep Apnea: Yes (confirmed by sleep study, mild) - Neurological Hx Neurological Disorder: Yes Other/Comment: nerve pain neck - HEENT Hx HEENT Disorder: No - Renal Hx Renal Disorder: No - Endocrine/Metabolic Hx Endocrine Disorders: No - Hematological/Oncological Hx Blood Disorders: No - Integumentary Hx Dermatological Disorder: No - Musculoskeletal/Rheumatological Hx Arthritis: Yes (mary knee) Hx Fractures: Yes (left fibula) - Gastrointestinal Hx Gastrointestinal Disorders: No - Genitourinary/Gynecological Hx Genitourinary Disorders: Yes Other/Comment: ovarian cyst and uterine fibroid - Psychiatric Hx Depression: No Hx Substance Use: No (Marijuana) - Past Surgical History Past Surgical History: No Previous - Surgical History Other/Comment: drained abscess x2, ovarian cyst and uterine fibroid removed 10/21 ectopic - Anesthesia Hx Anesthesia: Yes Hx Anesthesia Reactions: No Hx Malignant Hyperthermia: No - Suicidal Assessment Feels Threatened In Home Enviroment: No <Canelo Coleman - Last Filed: 09/12/17 16:16> - Provider Review Nursing Documentation Reviewed: Yes <Pawel Murray - Last Filed: 09/12/17 19:17> Family/Social History - Physician Review Nursing Documentation Reviewed: Yes Family/Social History: Unknown Family HX Smoking Status: Former Smoker Hx Alcohol Use: Yes (Socially) Hx Substance Use: No (Marijuana) Hx Substance Use Treatment: No <Canelo Coleman - Last Filed: 09/12/17 16:16> - Physician Review Nursing Documentation Reviewed: Yes <Pawel Murray P - Last Filed: 09/12/17 19:17> Allergies/Home Meds <Canelo Coleman - Last Filed: 09/12/17 16:16> <Pawel Murray P - Last Filed: 09/12/17 19:17> Allergies/Adverse Reactions: Allergies aspirin Allergy (Intermediate, Verified 09/12/17 13:55) ANAPHYLAXIS "my throat swells and i get short of breath" Home Medications: Home Meds Medication Instructions Recorded Confirmed Albuterol/Ipratropium [Duoneb 3 3 ml IH Q6 PRN 07/28/17 08/18/17 mg/0.5 mg (3 ml) UD] Multivit/Folic Acid/I 1 tab PO DAILY 08/18/17 08/18/17 [] Review of Systems - Physician Review All systems were reviewed & negative as marked: Yes - Review of Systems Constitutional: Normal Eyes: Normal ENT: Normal Respiratory: Normal Cardiovascular: Chest Pain (mild chest pain for months. dull) Gastrointestinal: Abdominal Pain (cramping), Constipation, Nausea Genitourinary Female: Vaginal Bleeding Musculoskeletal: Normal Skin: Normal Neurological: Other (pain, numbness, tingling of left leg) Endocrine: Normal <Canelo Coleman - Last Filed: 09/12/17 16:16> - Patients Enrolled in [employer] Initiative [X]: A conversation was conducted with the primary medical doctor. <Pawel Murray P - Last Filed: 09/12/17 19:17> Physical Exam Vital Signs Reviewed: Yes Temperature: Afebrile Blood Pressure: Normal Pulse: Regular Respiratory Rate: Normal Appearance: Positive for: Well-Appearing Pain Distress: Mild Mental Status: Positive for: Alert and Oriented X 3 - Systems Exam Head: Present: Atraumatic, Normocephalic Pupils: Present: PERRL Extroacular Muscles: Present: EOMI Conjunctiva: Present: Normal Nose (External): Present: Atraumatic Neck: Present: Normal Range of Motion Respiratory/Chest: Present: Wheezes (bilateral upper quadrants) Cardiovascular: Present: Regular Rate and Rhythm Abdomen: Present: Tenderness (left sided) Back: Present: Normal Inspection Upper Extremity: Present: Normal Inspection, Normal ROM, NORMAL PULSES Lower Extremity: Present: Normal Inspection, Tenderness Neurological: Present: GCS=15, CN II-XII Intact, Speech Normal, Motor Func Grossly Intact Skin: Present: Warm, Dry, Normal Color Psychiatric: Present: Alert, Oriented x 3, Normal Insight, Normal Concentration , Normal Affect, Normal Mood <Canelo Coleman - Last Filed: 09/12/17 16:16> <Pawel Murray P - Last Filed: 09/12/17 19:17> Vital Signs Temp Pulse Resp BP Pulse Ox 09/12/17 19:05 76 18 124/76 98 09/12/17 13:48 98.2 F 72 16 118/66 99 Medical Decision Making <Canelo Coleman - Last Filed: 09/12/17 16:16> Reassessment Condition: Improved - Lab Interpretations I have reviewed the lab results: Yes Interpretation: No clinic. lab abnormalty - RAD Interpretation Medical Billing Representative: Radiologist <Pawel Murray P - Last Filed: 09/12/17 19:17> ED Course and Treatment: Impression: 37 year old female presents with vaginal spotting and left lower extremity tenderness, numbness, and tingling. Assessment: Placenta previa vs. placental abruption vs. UTI vs. idiopathic bleeding. Compression of sciatic nerve on left vs. DVT vs. gestational diabetes. Plan: Patient seen and examined by resident. Due to patient's vaginal spotting, abdominal ultrasound should be done to evaluate the . In addition, due to her headache and vaginal spotting, urinanalysis will be done to evaluate for potential protein in the urine for diagnosing preeclampsia. Blood sugar will be taken to evaluate for gestational diabetes since she is at 24 weeks and has been having numbness and tingling of her left leg. Type and screen, CBC done due to vaginal bleed and evaluation for potential blood transfusion if necessary. 09/12/17 16:12 CBC and CMP were unremarkable. Hemoglobin was 10.6, which is reasonable given that she is . (Canelo Coleman) U/s shows no demise or sigsn of abruption or previa. 09/12/17 In agreement with resident note, which includes further HPI details. Patient was seen and evaluated with resident, came up with plan and treatment together. 09/12/17 19:15 (Pawel Murray) - Lab Interpretations Lab Results: 09/12/17 14:48 09/12/17 14:48 Lab Results 09/12/17 17:38: Blood Type A POSITIVE, Antibody Screen Negative, BBK History Checked Patient has bt 09/12/17 15:00: Urine Color Yellow, Urine Appearance Sl cloudy, Urine pH 7.0, Ur Specific [place] 1.020, Urine Protein Negative, Urine Glucose (UA) Negative, Urine Ketones Negative, Urine Blood Negative, Urine Nitrate Negative, Urine Bilirubin Negative, Urine Urobilinogen 0.2, Ur Leukocyte Esterase Trace H, Urine RBC Negative, Urine WBC 0 - 2, Ur Epithelial Cells Many, Urine Bacteria Few, Urine HCG, Qual Positive 09/12/17 14:48: Beta HCG, Quant 9402.70 H 09/12/17 14:48: Sodium 139, Potassium 4.0, Chloride 107, Carbon Dioxide 23, Anion Gap 13, BUN 11, Creatinine 0.7, Est GFR ( Amer) > 60, Est GFR (Non- Af Amer) > 60, Random Glucose 77, Calcium 9.2, Total Bilirubin 0.2, AST 12 L D, ALT 17, Alkaline Phosphatase 41, Total Protein 6.4, Albumin 3.5, Globulin 2.9, Albumin/Globulin Ratio 1.2 09/12/17 14:48: PT 11.2, INR 0.98, APTT 30.2 09/12/17 14:48: WBC 9.1 D, RBC 3.66, Hgb 10.6 L, Hct 31.7 L, MCV 86.6, MCH 29.0 , MCHC 33.4, RDW 13.0, Plt Count 297, MPV 8.6, Gran % 67.6, Lymph % (Auto) 20.5 L, [place] % (Auto) 7.3 H, Eos % (Auto) 4.4, Baso % (Auto) 0.2, Gran # 6.16, Lymph # (Auto) 1.9, [place] # (Auto) 0.7 H, Eos # (Auto) 0.4, Baso # (Auto) 0.02 - RAD Interpretation Narrative RAD Interpretations (Text): 09/12/17 19:13 reviewed prelim u/s readings FHT 147, good movement. no fluid in pelvis. (Pawel Murray) Radiology Orders: 09/12/17 14:31 AGE [US] Stat - PA / FINAL INSPECTOR MOVEMENT ASSEMBLY / Resident Statement / has reviewed & agrees with the documentation as recorded. / has examined the patient and agrees with the treatment plan. <Canelo Coleman - Last Filed: 09/12/17 16:16> - PA / FINAL INSPECTOR MOVEMENT ASSEMBLY / Resident Statement [place] has examined the patient and agrees with the treatment plan. <Pawel Murray - Last Filed: 09/12/17 19:17> Disposition/Present on Arrival - Present on Arrival Any Indicators Present on Arrival: No History of DVT/PE: No History of Uncontrolled Diabetes: No Urinary Catheter: No History of Decub. Ulcer: No History Surgical Site Infection Following: None - Disposition Have Diagnosis and Disposition been Completed?: Yes <Canelo Coleman - Last Filed: 09/12/17 16:16> - Present on Arrival Any Indicators Present on Arrival: No History of DVT/PE: No History of Uncontrolled Diabetes: No Urinary Catheter: No History of Decub. Ulcer: No - Disposition Have Diagnosis and Disposition been Completed?: Yes Disposition Time: 18:59 Patient Plan: Discharge <Pawel Murray - Last Filed: 09/12/17 19:17> - Disposition Diagnosis: Threatened miscarriage Disposition: HOME/ ROUTINE Condition: IMPROVED Discharge Instructions (ExitCare): Threatened Miscarriage Forms: [facility] ([employer]), WORK NOTE - Notes Notes (Text): 09/12/17 18:59 followup with your CABLEWAY OPERATOR within the next two days. (Pawel Murray)
[2017-09-12 15:13] LABS: URINE BILIRUBIN NEGATIVE (NEGATIVE); URINE BLOOD NEGATIVE (NEGATIVE); URINE GLUCOSE (UA) NEGATIVE (NEGATIVE); URINE LEUKOCYTE ESTERASE TRACE Leu/uL (NEGATIVE); URINE PROTEIN NEGATIVE mg/dL (<30 mg/dL); URINE UROBILINOGEN 0.2 E.U./dL (<1 E.U./dL)
[2017-09-12 15:13] LABS: BASO # 0.02 K/mm3 (0.0-2.0); BASO % 0.2 % (0.0-3.0); EOS # 0.4 (0.0-0.7); EOS % 4.4 % (1.5-5.0); GRAN # 6.16 (1.4-6.5); GRAN % 67.6 % (50.0-68.0); HEMOGLOBIN 10.6 g/dL (12.0-16.0); LYMPH # 1.9 (1.2-3.4); LYMPH % 20.5 % (22.0-35.0); MEAN CELL VOLUME 86.6 fl (80.0-105.0); MEAN CORPUSCULAR HGB CONC 33.4 g/dl (31.0-37.0); MEAN PLATELET VOLUME 8.6 fl (7.0-11.0); MONO # 0.7 (0.1-0.6); MONO % 7.3 % (1.0-6.0); RBC 3.66 10^6/uL (3.5-6.1); WHITE BLOOD COUNT 9.1 10^3/ul (4.5-11.0)
[2017-09-12 15:17] LABS: INR 0.98 (0.93-1.08); PARTIAL THROMBOPLASTIN TIME 30.2 Seconds (25.1-36.5); PROTHROMBIN TIME 11.2 SECONDS (9.4-12.5)
[2017-09-12 15:18] LABS: URINE APPEARANCE SL CLOUDY (CLEAR); URINE COLOR YELLOW (YELLOW)
[2017-09-12 15:19] LABS: HCG,QUALITATIVE URINE POSITIVE (NEGATIVE)
[2017-09-12 15:20] LABS: URINE BACTERIA FEW (NEG); URINE EPITHELIAL CELLS MANY /hpf (0-5); URINE RBC NEGATIVE /hpf (0-2); URINE WBC 0 - 2 /hpf (0-6)
[2017-09-12 15:20] LABS: ALB/GLOB RATIO 1.2 (1.1-1.8); ALBUMIN 3.5 g/dL (3.0-4.8); ALT/SGPT 17 U/L (7-56); AST/SGOT 12 U/L (14-36); BLOOD UREA NITROGEN 11 mg/dL (7-21); CALCIUM 9.2 mg/dL (8.4-10.5); GFR AFRICAN-AMERICAN > 60; GFR NON-AFRICAN AMERICAN > 60
[2017-09-12 19:05] VITALS: BP 124/76; PULSE 76; RESP 18; O2SAT 98
--- NOTE | 2017-09-13 14:41 | US ---
Date of service: 09/12/2017 PROCEDURE: ultrasound HISTORY: PVB hx of placenta previa COMPARISON: None. TECHNIQUE: Standard protocol for this study/examination. FINDINGS: Cephalic presentation. Posterior Placenta. No evidence of abruption or previa Gestational age derived from LMP 24 weeks. ZEINAB 01/02/2018. Gestational age derived from the following biometric parameters 23 weeks 5 days. ZEINAB 01/04/2018 Biparietal diameter 5.86 cm Head circumference 21.77 cm Abdominal circumference 19.01 cm Femur length 4.08 cm Estimated weight 607.4 g Calculated cardiac rate 148 beats per min. Closed cervix measuring 4.4 cm IMPRESSION: Live intrauterine gestation cephalic presentation. Gestational concordance documented Posterior placenta. Concordant results (preliminary interpretation) provided by [facility]. Procedure Completed: 17:41 Preliminary ([facility]) Report: Dictated and Authenticated: 18:30 September 12, 2017. Final Interpretation: 14:39 September 13, 2017.
== END 2017-09-12 19:05 | disposition home or self-care (01) ==
LOC: ED 13:15
DX: O20.0 Threatened abortion (principal); Z3A.24 24 weeks gestation of pregnancy

== ENCOUNTER 2017-09-20 07:18 | Emergency (ER) | payer OTHER ==
--- NOTE | 2017-09-20 07:48 | ED PDOC ---
Arrival/HPI - General Chief Complaint: Shortness Of Breath Time Seen by Provider: 09/20/17 07:32 Historian: Patient - History of Present Illness Narrative History of Present Illness (Text): 09/20/17 07:44 Arminda Duong is a 37 year old female, 25 weeks , , whose past medical history includes asthma, who presents to the Emergency department complaining of shortness of breath and wheezing. Patient states she has been experiencing symptoms for the past few days and is similar to prior asthma exacerbations. She reports using her inhaler, with mild relief. Patient notes associated cough but denies any congestion, sore/itchy throat, fever, chills, chest pain or any other complaints. PMD: Non-[facility] provider Time/Duration: Other (a couple days) Symptom Onset: Gradual Symptom Course: Unchanged Activities at Onset: Light Context: Home Past Medical History - Provider Review Nursing Documentation Reviewed: Yes - Past History Past History: Non-Contributing - Infectious Disease Hx of Infectious Diseases: None - Tetanus Immunization Tetanus Immunization: Unknown - Cardiac Hx Cardiac Disorders: No - Pulmonary Hx Asthma: Yes Hx Bronchitis: Yes Hx Sleep Apnea: Yes (confirmed by sleep study, mild) - Neurological Hx Neurological Disorder: Yes Other/Comment: nerve pain neck - HEENT Hx HEENT Disorder: No - Renal Hx Renal Disorder: No - Endocrine/Metabolic Hx Endocrine Disorders: No - Hematological/Oncological Hx Blood Disorders: No - Integumentary Hx Dermatological Disorder: No - Musculoskeletal/Rheumatological Hx Arthritis: Yes (mary knee) Hx Fractures: Yes (left fibula) - Gastrointestinal Hx Gastrointestinal Disorders: No - Genitourinary/Gynecological Hx Genitourinary Disorders: Yes Other/Comment: ovarian cyst and uterine fibroid - Psychiatric Hx Depression: No Hx Substance Use: No (Marijuana) - Past Surgical History Past Surgical History: No Previous - Surgical History Other/Comment: drained abscess x2, ovarian cyst and uterine fibroid removed 10/21 ectopic - Anesthesia Hx Anesthesia: Yes Hx Anesthesia Reactions: No Hx Malignant Hyperthermia: No - Suicidal Assessment Feels Threatened In Home Enviroment: No Family/Social History - Physician Review Nursing Documentation Reviewed: Yes Family/Social History: Unknown Family HX Smoking Status: Former Smoker Hx Alcohol Use: Yes (Socially) Hx Substance Use: No (Marijuana) Hx Substance Use Treatment: No Allergies/Home Meds Allergies/Adverse Reactions: Allergies aspirin Allergy (Intermediate, Verified 09/12/17 13:55) ANAPHYLAXIS "my throat swells and i get short of breath" Home Medications: Home Meds Medication Instructions Recorded Confirmed Albuterol/Ipratropium [Duoneb 3 3 ml IH Q6 PRN 07/28/17 08/18/17 mg/0.5 mg (3 ml) UD] Multivit/Folic Acid/I 1 tab PO DAILY 08/18/17 08/18/17 [] Review of Systems - Physician Review All systems were reviewed & negative as marked: Yes - Review of Systems Constitutional: absent: Fevers, Night Sweats ENT: absent: Sore Throat, Sinus Congestion Respiratory: SOB, Cough, Wheezing Cardiovascular: absent: Chest Pain Physical Exam Vital Signs Reviewed: Yes Vital Signs Temp Pulse Resp BP Pulse Ox 09/20/17 09:05 98.6 F 75 18 138/76 98 09/20/17 08:30 86 100 09/20/17 08:26 20 09/20/17 07:33 98.8 F 96 H 20 121/76 97 Temperature: Afebrile Blood Pressure: Normal Pulse: Regular Respiratory Rate: Normal Appearance: Positive for: Well-Appearing, Non-Toxic, Comfortable Pain Distress: None Mental Status: Positive for: Alert and Oriented X 3 - Systems Exam Head: Present: Atraumatic, Normocephalic Pupils: Present: PERRL Extroacular Muscles: Present: EOMI Conjunctiva: Present: Normal Mouth: Present: Moist Mucous Membranes Respiratory/Chest: Present: Good Air Exchange, Wheezes (diffuse), Other ( Patient is speaking in complete sentences). No: Respiratory Distress, Accessory Muscle Use, Retracting Cardiovascular: Present: Regular Rate and Rhythm, Normal S1, S2. No: Murmurs Abdomen: Present: Normal Bowel Sounds. No: Tenderness, Distention, Peritoneal Signs Upper Extremity: Present: Normal Inspection. No: Cyanosis, Edema Lower Extremity: Present: Normal Inspection. No: Edema Neurological: Present: GCS=15, CN II-XII Intact, Speech Normal Skin: Present: Warm, Dry, Normal Color. No: Rashes Psychiatric: Present: Alert, Oriented x 3, Normal Insight, Normal Concentration Medical Decision Making ED Course and Treatment: 09/20/17 07:45 Impression: 37 year old female with shortness of breath. History of asthma. Differential Diagnosis included but are not limited to: Asthma exacerbation Plan: -- Duoneb and Prednisone -- Reassess and disposition Prior Visits: Notes and results from previous visits were reviewed. Patient was last seen in the emergency department on 08/18/17 for shortness of breath and wheezing. Patient was discharged because symptoms improved. Progress Notes: 09/20/17 08:26 Bedside transabdominal US shows intrauterine fetus with good HR and movement. Patient denies abdominal or back pain, vaginal bleeding or discharge. 09/20/17 08:57 Lungs are clear. No w/r/r. No retractions. 09/20/17 09:08 Patient is alert and comfortable. She no longer has any shortness of breathe or wheezing. She is able to walk around the ED without any shortness of breathe. She is comfortable going home. She was given a prescription for albuterol and explained that she also must take prednisone. She was advised to return to the ED if symptoms worsen or any concern. She also must follow up with her pmd in 1- 2days and her obgyn as scheduled. - Medication Orders Current Medication Orders: Discontinued Medications Albuterol/Ipratropium (Duoneb 3 Mg/0.5 Mg (3 Ml) Ud) 3 ml IH Q15M HUSAM Stop: 09/20/17 08:16 Last Admin: 09/20/17 08:16 Dose: 3 ml Prednisone (Prednisone Tab) 60 mg PO STAT STA Stop: 09/20/17 07:45 Last Admin: 09/20/17 07:50 Dose: 60 mg - Scribe Statement The provider has reviewed the documentation as recorded by the Bethany Fong training under Lindsey Garcia All medical record entries made by the Bethany were at my direction and personally dictated by me. I have reviewed the chart and agree that the record accurately reflects my personal performance of the history, physical exam, medical decision making, and the department course for this patient. I have also personally directed, reviewed, and agree with the discharge instructions and disposition. Disposition/Present on Arrival - Present on Arrival Any Indicators Present on Arrival: No History of DVT/PE: No History of Uncontrolled Diabetes: No Urinary Catheter: No History of Decub. Ulcer: No History Surgical Site Infection Following: None - Disposition Have Diagnosis and Disposition been Completed?: Yes Diagnosis: Acute asthma exacerbation Disposition: HOME/ ROUTINE Disposition Time: 08:58 Condition: IMPROVED Discharge Instructions (ExitCare): Asthma and Additional Instructions: ARMINDA DUONG, thank you for letting us take care of you today. Your provider was Parish Doyle DO and you were treated for Asthma Exacerbation in . The emergency medical care you received today was directed at your acute symptoms. If you were prescribed any medication, please fill it and take as directed. It may take several days for your symptoms to resolve. Return to the Emergency Department if your symptoms worsen, do not improve, or if you have any other problems. Please contact your doctor or call one of the physicians/clinics you have been referred to that are listed on the Patient Visit Information form that is included in your discharge packet. Bring any paperwork you were given at discharge with you along with any medications you are taking to your follow up visit. Our treatment cannot replace ongoing medical care by a primary care provider outside of the emergency department. Thank you for allowing the [facility] team to be part of your care today. If you had an X-Ray or CT scan: A Radiologist will review the ED reading if any change in treatment is needed we will contact you. If you had a blood, urine, or wound culture: It will take several days for the results, if any change in treatment is needed we will contact you. If you had an STI test: It will take 48 hours for the results. Please call after 1 week if you have not heard back. Prescriptions: Albuterol HFA [Ventolin HFA 90 mcg/actuation (8 g)] 2 puff IH Q4 #1 puff predniSONE [predniSONE Tab] 40 mg PO DAILY #8 tab Referrals: Non [facility] Provider, [Non-Staff] - Follow up with primary Forms: [email or web address] ([place]), WORK NOTE
[2017-09-20] MEDS: Albuterol-Ipratrop 3 mg / 0.5 (3 ml) UD IH SCH ×3 (07:50→08:16)
[2017-09-20 09:06] VITALS: BP 138/76; PULSE 75; RESP 18; TEMP 98.6; O2SAT 98
== END 2017-09-20 09:05 | disposition home or self-care (01) ==
LOC: ED 07:18
DX: O26.892 Other specified pregnancy related conditions, second trimester (principal); Z3A.25 25 weeks gestation of pregnancy; J45.901 Unspecified asthma with (acute) exacerbation

== ENCOUNTER 2017-11-10 15:50 | Emergency (ER) | payer OTHER ==
[2017-11-10 15:54] VITALS: BMI 47.5
--- NOTE | 2017-11-10 16:16 | ED PDOC ---
Arrival/HPI - General Historian: Patient - History of Present Illness Time/Duration: 24 hours Symptom Onset: Gradual Symptom Course: Worsening Severity Level: Moderate <Jessica Rodriguez - Last Filed: 11/10/17 18:46> <Parish Doyle - Last Filed: 11/16/17 07:49> - General Time Seen by Provider: 11/10/17 15:54 - History of Present Illness Narrative History of Present Illness (Text): 11/10/17 16:11 37 year old 33 week black female with PMH of asthma presents to the Emergency department complaining of shortness of breath and dry cough x 24 hours. Symptoms began yesterday morning, similar to prior asthma exacerbations. She was using her albuterol inhaler once an hour yesterday but stopped when she began to experience chest discomfort and "heart racing". She has experienced these symptoms before and attributes to the excessive inhaler use. These symptoms have since resolved. She used her albuterol inhaler 3 times today. Intubated for an asthma exacerbation once in 2012. No recent immobilization, surgery, or history of malignancy. Denies fever, chills, productive cough, sore throat, rhinorrhea, N/V, chest pain, dizziness, headache, vaginal bleeding, abdominal pain, calf pain, calf swelling. (Jessica Rodriguez) Past Medical History - Provider Review Nursing Documentation Reviewed: Yes - Infectious Disease Hx of Infectious Diseases: None - Tetanus Immunization Tetanus Immunization: Unknown - Reproductive Currently : Yes - Cardiac Hx Cardiac Disorders: No - Pulmonary Hx Asthma: Yes Hx Bronchitis: Yes Hx Sleep Apnea: Yes (confirmed by sleep study, mild) - Neurological Hx Neurological Disorder: Yes Other/Comment: nerve pain neck - HEENT Hx HEENT Disorder: No - Renal Hx Renal Disorder: No - Endocrine/Metabolic Hx Endocrine Disorders: No - Hematological/Oncological Hx Blood Disorders: No - Integumentary Hx Dermatological Disorder: No - Musculoskeletal/Rheumatological Hx Arthritis: Yes (mary knee) Hx Fractures: Yes (left fibula) - Gastrointestinal Hx Gastrointestinal Disorders: No - Genitourinary/Gynecological Hx Genitourinary Disorders: Yes Other/Comment: ovarian cyst and uterine fibroid - Psychiatric Hx Depression: No Hx Substance Use: No (Marijuana) - Past Surgical History Past Surgical History: No Previous - Surgical History Other/Comment: drained abscess x2, ovarian cyst and uterine fibroid removed 10/21 ectopic - Anesthesia Hx Anesthesia: Yes Hx Anesthesia Reactions: No Hx Malignant Hyperthermia: No - Suicidal Assessment Feels Threatened In Home Enviroment: No <Jessica Rodriguez - Last Filed: 11/10/17 18:46> Family/Social History - Physician Review Nursing Documentation Reviewed: Yes Family/Social History: Unknown Family HX Smoking Status: Former Smoker Hx Alcohol Use: Yes (Socially) Hx Substance Use: No (Marijuana) Hx Substance Use Treatment: No <Jessica Rodriguez - Last Filed: 11/10/17 18:46> Allergies/Home Meds <Jessica Rodriguez - Last Filed: 11/10/17 18:46> <Parish Doyle - Last Filed: 11/16/17 07:49> Allergies/Adverse Reactions: Allergies aspirin Allergy (Intermediate, Verified 11/10/17 15:54) ANAPHYLAXIS "my throat swells and i get short of breath" Home Medications: Home Meds Medication Instructions Recorded Confirmed Albuterol/Ipratropium [Duoneb 3 3 ml IH Q6 PRN 07/28/17 11/10/17 mg/0.5 mg (3 ml) UD] Multivit/Folic Acid/I 1 tab PO DAILY 08/18/17 11/10/17 [] Budesonide [Pulmicort Flexhaler] 90 mcg IH PRN PRN 11/10/17 11/10/17 Review of Systems - Review of Systems Constitutional: Normal. absent: Fevers ENT: Normal. absent: Sore Throat, Rhinorrhea, Sinus Congestion Respiratory: SOB, Cough, Wheezing. absent: Sputum Cardiovascular: Palpitations ("heart racing"). absent: Chest Pain, Edema, Calf Pain, Orthopnea, Syncope Gastrointestinal: Normal. absent: Abdominal Pain, Stool Changes, Nausea, Vomiting, Appetite Changes Genitourinary Female: Normal. absent: Dysuria, Frequency, Vaginal Bleeding, Vaginal Discharge Skin: Normal Neurological: Normal. absent: Headache, Dizziness Hemo/Lymphatic: absent: Adenopathy <Jessica Rodriguez - Last Filed: 11/10/17 18:46> Physical Exam Vital Signs Reviewed: Yes Temperature: Afebrile Blood Pressure: Normal Pulse: Regular Respiratory Rate: Normal Appearance: Positive for: Well-Appearing (Obese), Non-Toxic, Uncomfortable (Pt appears mildly short of breath) Pain Distress: None Mental Status: Positive for: Alert and Oriented X 3 - Systems Exam Conjunctiva: Present: Normal Mouth: Present: Moist Mucous Membranes Pharnyx: Present: Normal. No: ERYTHEMA, EXUDATE, TONSILS ENLARGED Respiratory/Chest: Present: Wheezes (Expiratory wheezing diffuse in all lung zeng). No: Respiratory Distress, Accessory Muscle Use, Rales, Retracting, Tender to Palpation Cardiovascular: Present: Regular Rate and Rhythm, Normal S1, S2, Peripheal Pulses Present. No: Murmurs, Tachycardic Upper Extremity: Present: Normal Inspection, NORMAL PULSES, Capillary Refill < 2s Lower Extremity: Present: Normal Inspection, NORMAL PULSES, Capillary Refill < 2 s. No: Edema, CALF TENDERNESS, Arnaldo's Sign, Swelling, Erythema Skin: Present: Warm, Dry, Normal Color. No: Rashes Lymphatic: No: Cervical Adenopathy Psychiatric: Present: Alert, Oriented x 3, Normal Insight, Normal Concentration <Jessica Rodriguez - Last Filed: 11/10/17 18:46> Vital Signs Temp Pulse Resp BP Pulse Ox 11/10/17 18:07 98.3 F 74 19 97 11/10/17 17:27 71 18 128/69 99 11/10/17 16:10 98.5 F 77 18 130/73 99 Medical Decision Making Re-evaluation Time: 17:30 Reassessment Condition: Re-examined, Improved (wheezing has decreased significantly in all lung zeng. Pt feels much better, breathing easier, and comfortable with discharge home) - EKG Interpretation Interpreted by ED Physician: Yes (Normal Sinus Rhythm, No signs of ischemia ) Type: 12 lead EKG <Jessica Rodriguez - Last Filed: 11/10/17 18:46> <Parish Doyle - Last Filed: 11/16/17 07:49> ED Course and Treatment: 11/10/17 16:45 37 year old [id number] female with history of asthma who presents to the Emergency department for shortness of breath similar to prior asthma exacerbations. Pt has diffuse wheezing across all lung zeng. Wells criteria 0 , no concern for DVT/PE. EKG read by Dr. Doyle: Normal sinus rhythm, no sign of ischemia Will give DuoNeb q15min x 3 Will give 1 tab 60mg PO Prednisone Reassess after treatments for possible home discharge Discussed with Dr. Doyle 11/10/17 17:30 Reassessment Pt feels much better and is breathing easier after 3 DuoNeb treatments, comfortable with being discharged home Physical exam has improved: expiratory wheezing has decreased significantly in all lung zeng Plan 40mg Prednisone PO daily x 4 days Albuterol inhaler 2 puffs Q4h as needed Continue home medications Followup with OBGYN as scheduled Followup with PMD as scheduled Return if shortness of breath worsens, high fevers, chest pain Plan discussed with pt, who understands and agrees Plan discussed with Dr. Doyle 11/10/17 18:46 (Jessica Rodriguez) - Medication Orders Current Medication Orders: Discontinued Medications Albuterol/Ipratropium (Duoneb 3 Mg/0.5 Mg (3 Ml) Ud) 3 ml IH Q15M HUSAM Stop: 11/10/17 17:01 Last Admin: 11/10/17 17:24 Dose: 3 ml Prednisone (Prednisone Tab) 60 mg PO STAT ONE Stop: 11/10/17 16:26 Last Admin: 11/10/17 16:37 Dose: 60 mg Wells Criteria for PE - Wells Criteria for Pulmonary Embolism Clinical Signs and Symptoms of DVT: No P.E is #1 Diagnosis, or Equally Likely: No Heart Rate >100: No Immobilization at least 3 days;Surgery previous 4 weeks: No Previous, objectively diagnosed PE or DVT: No Hemoptysis: No Malignancy w/treatment within 6 months, or palliative: No Total Score: 0 <Jessica Rodriguez - Last Filed: 11/10/17 18:46> - PA / [employer] / Resident Statement /DO has examined the patient and agrees with the treatment plan. <Parish Doyle - Last Filed: 11/16/17 07:49> Disposition/Present on Arrival - Present on Arrival Any Indicators Present on Arrival: No History of DVT/PE: No History of Uncontrolled Diabetes: No Urinary Catheter: No History Surgical Site Infection Following: None - Disposition Have Diagnosis and Disposition been Completed?: Yes Disposition Time: 17:30 Patient Plan: Discharge <Jessica Rodriguez - Last Filed: 11/10/17 18:46> <Parish Doyle - Last Filed: 11/16/17 07:49> - Disposition Diagnosis: Asthma exacerbation, Disposition: HOME/ ROUTINE Condition: IMPROVED Discharge Instructions (ExitCare): Asthma in Adults Additional Instructions: Take 2 tabs of 20mg Prednisone PO once daily for 4 days Use Albuterol inhaler every 4 hours as needed Continue home meds Followup with OBGYN as scheduled Followup with [facility] as scheduled Followup with primary as scheduled Return if shortness of breath worsens, chest pain, high fever Prescriptions: Albuterol HFA [Ventolin HFA 90 mcg/actuation (8 g)] 2 puff IH Q4H #1 puff predniSONE [Prednisone] 40 mg PO DAILY 4 Days #8 tab Referrals: Aquiles Carmona MD [Medical Doctor] - Follow up with primary Kristen Garcia MD [Medical Doctor] - Follow up with primary Forms: WORK NOTE, [facility] (Slovak)
[2017-11-10] MEDS: Albuterol-Ipratrop 3 mg / 0.5 (3 ml) UD IH SCH ×3 (16:39→17:24)
[2017-11-10 17:27] VITALS: BP 128/69
[2017-11-10 18:08] VITALS: PULSE 74; RESP 19; TEMP 98.3; O2SAT 97
--- NOTE | 2017-11-11 09:49 | CARD ---
APPROVED REPORT Date of service: 11/10/2017 EKG Measurement Heart [id number] <Conclusion> Normal sinus rhythm Normal ECG
== END 2017-11-10 18:08 | disposition home or self-care (01) ==
LOC: ED 15:50
DX: O26.893 Other specified pregnancy related conditions, third trimester (principal); J45.901 Unspecified asthma with (acute) exacerbation; Z3A.33 33 weeks gestation of pregnancy

== ENCOUNTER 2018-03-03 22:07 | Emergency (ER) | payer OTHER ==
[2018-03-03 22:25] VITALS: TEMP 97.9; BMI 38.6
[2018-03-03] MEDS ORDERED: Albuterol-Ipratrop 3 mg / 0.5 (3 ml) UD IH STA (22:27)
--- NOTE | 2018-03-04 00:09 | ED PDOC ---
Arrival/HPI <Christian Adair - Last Filed: 03/04/18 00:16> - General Historian: Patient - History of Present Illness Narrative History of Present Illness (Text): 03/04/18 00:06 37yo morbidly obese female with past medical history of Asthma who present with 2days history of SOB and wheezing. States she has been using her neb and hand inhaler without relieve. Notes previous history of hospital admission and intubation secondary to Asthma. states she is not steroid dependent. Denies fever, chills, chest pain, sick contact, any other complaint. <Rashi Neal A - Last Filed: 03/04/18 00:44> - General Chief Complaint: Respiratory Distress Time Seen by Provider: 03/03/18 22:18 Past Medical History - Provider Review Nursing Documentation Reviewed: Yes - Past History Past History: Non-Contributing - Infectious Disease Hx of Infectious Diseases: None - Tetanus Immunization Tetanus Immunization: Unknown - Cardiac Hx Cardiac Disorders: No - Pulmonary Hx Asthma: Yes Hx Bronchitis: Yes Hx Sleep Apnea: Yes (confirmed by sleep study, mild) - Neurological Hx Neurological Disorder: Yes Other/Comment: nerve pain neck - HEENT Hx HEENT Disorder: No - Renal Hx Renal Disorder: No - Endocrine/Metabolic Hx Endocrine Disorders: No - Hematological/Oncological Hx Blood Disorders: No - Integumentary Hx Dermatological Disorder: No - Musculoskeletal/Rheumatological Hx Arthritis: Yes (mary knee) Hx Fractures: Yes (left fibula) - Gastrointestinal Hx Gastrointestinal Disorders: No - Genitourinary/Gynecological Hx Genitourinary Disorders: Yes Other/Comment: ovarian cyst and uterine fibroid - Psychiatric Hx Depression: No Hx Substance Use: No (Marijuana) - Past Surgical History Past Surgical History: No Previous - Surgical History Other/Comment: drained abscess x2, ovarian cyst and uterine fibroid removed 10/22/15 ectopic - Anesthesia Hx Anesthesia: Yes Hx Anesthesia Reactions: No Hx Malignant Hyperthermia: No - Suicidal Assessment Feels Threatened In Home Enviroment: No <Rashi Neal A - Last Filed: 03/04/18 00:44> Family/Social History - Physician Review Nursing Documentation Reviewed: Yes Family/Social History: Unknown Family HX Smoking Status: Former Smoker Hx Alcohol Use: Yes (Socially) Hx Substance Use: No (Marijuana) Hx Substance Use Treatment: No <Rashi Neal A - Last Filed: 03/04/18 00:44> Allergies/Home Meds <Christian Adair - Last Filed: 03/04/18 00:16> <Rashi Neal A - Last Filed: 03/04/18 00:44> Allergies/Adverse Reactions: Allergies aspirin Allergy (Intermediate, Verified 03/03/18 22:14) ANAPHYLAXIS "my throat swells and i get short of breath" Home Medications: Home Meds Medication Instructions Recorded Confirmed Albuterol/Ipratropium [Duoneb 3 3 ml IH Q6 PRN 07/28/17 11/10/17 mg/0.5 mg (3 ml) UD] Multivit/Folic Acid/I 1 tab PO DAILY 08/18/17 11/10/17 [] Budesonide [Pulmicort Flexhaler] 90 mcg IH PRN PRN 11/10/17 11/10/17 Review of Systems - Physician Review All systems were reviewed & negative as marked: Yes - Review of Systems Constitutional: Normal Eyes: Normal ENT: Normal Respiratory: SOB, Wheezing Cardiovascular: Normal Gastrointestinal: Normal Genitourinary Female: Normal Musculoskeletal: Normal Skin: Normal Neurological: Normal Endocrine: Normal Hemo/Lymphatic: Normal Psychiatric: Normal <Rashi Neal A - Last Filed: 03/04/18 00:44> Physical Exam Vital Signs Temp Pulse Resp BP Pulse Ox 03/03/18 22:17 97.9 F 89 18 138/83 98 <Christian Adair - Last Filed: 03/04/18 00:16> Vital Signs Reviewed: Yes Vital Signs Temp Pulse Resp BP Pulse Ox 03/03/18 22:17 97.9 F 89 18 138/83 98 Temperature: Afebrile Blood Pressure: Normal Pulse: Regular Respiratory Rate: Normal Appearance: Positive for: Well-Appearing, Non-Toxic, Comfortable Pain Distress: None Mental Status: Positive for: Alert and Oriented X 3 - Systems Exam Head: Present: Atraumatic, Normocephalic Pupils: Present: PERRL Extroacular Muscles: Present: EOMI Conjunctiva: Present: Normal Mouth: Present: Moist Mucous Membranes Neck: Present: Normal Range of Motion Respiratory/Chest: Present: Good Air Exchange, Wheezes (Diffuse expiratory wheeze). No: Respiratory Distress, Accessory Muscle Use, Decreased Breath Sounds, Rales, Retracting, Rhonchi Cardiovascular: Present: Regular Rate and Rhythm, Normal S1, S2. No: Murmurs Abdomen: No: Tenderness, Distention, Peritoneal Signs Back: Present: Normal Inspection Upper Extremity: Present: Normal Inspection. No: Cyanosis, Edema Lower Extremity: Present: Normal Inspection. No: Edema Neurological: Present: GCS=15, CN II-XII Intact, Speech Normal Skin: Present: Warm, Dry, Normal Color. No: Rashes Psychiatric: Present: Alert, Oriented x 3, Normal Insight, Normal Concentration <Rashi Neal - Last Filed: 03/04/18 00:44> Medical Decision Making - Medication Orders Current Medication Orders: Discontinued Medications Albuterol/Ipratropium (Duoneb 3 Mg/0.5 Mg (3 Ml) Ud) 3 ml IH Q15M STA Stop: 03/03/18 22:28 Last Admin: 03/03/18 22:20 Dose: 3 ml Methylprednisolone (Solu-Medrol) 125 mg IVP STAT STA Stop: 03/03/18 22:29 Last Admin: 03/03/18 22:40 Dose: 125 mg IVP Administration Document 03/03/18 22:40 CNR (Rec: 03/03/18 22:40 CNR [id number]) Charges for Administration # of IVP Administrations 1 <Christian Adair - Last Filed: 03/04/18 00:16> ED Course and Treatment: 03/04/18 00:43 Pt in emergency department for stated history. She was wheezing on arrival, but not in any distress. Duoneb x3 solu medrol Reassess On re evaluation her wheezing resolved. Her lung was CTA b/l. she ambulated without distress. States she feels much better and requested to be DC home. - Medication Orders Current Medication Orders: Discontinued Medications Albuterol/Ipratropium (Duoneb 3 Mg/0.5 Mg (3 Ml) Ud) 3 ml IH Q15M STA Stop: 03/03/18 22:28 Last Admin: 03/03/18 22:20 Dose: 3 ml Methylprednisolone (Solu-Medrol) 125 mg IVP STAT STA Stop: 03/03/18 22:29 Last Admin: 03/03/18 22:40 Dose: 125 mg IVP Administration Document 03/03/18 22:40 CNR (Rec: 03/03/18 22:40 CNR [id number]) Charges for Administration # of IVP Administrations 1 <Rashi Neal - Last Filed: 03/04/18 00:44> - PA / RETAIL ADVISOR / Resident Statement MD/ has reviewed & agrees with the documentation as recorded. <Christian Adair - Last Filed: 03/04/18 00:16> Disposition/Present on Arrival <Christian Adair - Last Filed: 03/04/18 00:16> - Present on Arrival Any Indicators Present on Arrival: No History of DVT/PE: No History of Uncontrolled Diabetes: No Urinary Catheter: No History of Decub. Ulcer: No History Surgical Site Infection Following: None - Disposition Have Diagnosis and Disposition been Completed?: Yes Disposition Time: 00:40 Patient Plan: Discharge <Rashi Neal Cecilia - Last Filed: 03/04/18 00:44> - Disposition Diagnosis: Asthma attack Disposition: HOME/ ROUTINE Condition: STABLE Discharge Instructions (ExitCare): Asthma in Adults Additional Instructions: Follow up with your doctor Return to emergency department for any new or worsening symptoms Prescriptions: Prednisone 50 mg PO DAILY #5 tablet Referrals: Stephen Cummings, [Primary Care Provider] - Follow up with primary So Nye MD [Medical Doctor] - Follow up with primary Forms: [employer] (Kazakh)
[2018-03-04 00:49] VITALS: BP 137/87; PULSE 72; RESP 16; O2SAT 97
== END 2018-03-04 00:48 | disposition home or self-care (01) ==
LOC: ED 22:07
DX: J45.909 Unspecified asthma, uncomplicated (principal); Z87.891 Personal history of nicotine dependence
CPT/HCPCS: 94640; 96374; 99284; J2930

== ENCOUNTER 2018-05-01 16:59 | Emergency (ER) | payer SELFPAY ==
[2018-05-01 17:06] VITALS: RESP 18; BMI 44.9
[2018-05-01] MEDS ORDERED: Albuterol-Ipratrop 3 mg / 0.5 (3 ml) UD IH STA (17:31)
--- NOTE | 2018-05-01 18:53 | ED PDOC ---
Arrival/HPI - General Chief Complaint: Back Pain Historian: Patient - History of Present Illness Narrative History of Present Illness (Text): 05/01/18 18:50 38yo female with pmhx of Asthma who present with complaint of nonproductive cough, upper back and neck pain x 2days. States she used her inhaler today with some relieve. Notes that pain is with lateral movement of his neck and back. States her back/neck pain is chronic and she gets Percocet from pain management for the pain. Notes that her pain management is considering putting her on medicinal marijuana for the pain. States she came because the Percocet wasn't helping her pain and she didn't take it today. Denies trauma, chest pain, SOB, diaphoresis, nausea, vomiting, fever, chills, sick contact, travel, any other complaint. Past Medical History - Provider Review Nursing Documentation Reviewed: Yes - Past History Past History: Non-Contributing - Infectious Disease Hx of Infectious Diseases: None - Tetanus Immunization Tetanus Immunization: Unknown - Cardiac Hx Cardiac Disorders: No - Pulmonary Hx Asthma: Yes Hx Bronchitis: Yes Hx Sleep Apnea: Yes (confirmed by sleep study, mild) - Neurological Hx Neurological Disorder: Yes Other/Comment: nerve pain neck - HEENT Hx HEENT Disorder: No - Renal Hx Renal Disorder: No - Endocrine/Metabolic Hx Endocrine Disorders: No - Hematological/Oncological Hx Blood Disorders: No - Integumentary Hx Dermatological Disorder: No - Musculoskeletal/Rheumatological Hx Arthritis: Yes (mary knee) Hx Fractures: Yes (left fibula) - Gastrointestinal Hx Gastrointestinal Disorders: No - Genitourinary/Gynecological Hx Genitourinary Disorders: Yes Other/Comment: ovarian cyst and uterine fibroid - Psychiatric Hx Depression: No Hx Substance Use: No (Marijuana) - Past Surgical History Past Surgical History: No Previous - Surgical History Hx Section: Yes Other/Comment: drained abscess x2, ovarian cyst and uterine fibroid removed 10/22/15 ectopic - Anesthesia Hx Anesthesia: Yes Hx Anesthesia Reactions: No Hx Malignant Hyperthermia: No - Suicidal Assessment Feels Threatened In Home Enviroment: No Family/Social History - Physician Review Nursing Documentation Reviewed: Yes Family/Social History: Unknown Family HX Smoking Status: Former Smoker Hx Alcohol Use: Yes (Socially) Hx Substance Use: No (Marijuana) Hx Substance Use Treatment: No Allergies/Home Meds Allergies/Adverse Reactions: Allergies aspirin Allergy (Intermediate, Verified 05/01/18 17:06) ANAPHYLAXIS "my throat swells and i get short of breath" Home Medications: Home Meds Medication Instructions Recorded Confirmed Albuterol/Ipratropium [Duoneb 3 3 ml IH Q6 PRN 07/28/17 11/10/17 mg/0.5 mg (3 ml) UD] Multivit/Folic Acid/I 1 tab PO DAILY 08/18/17 11/10/17 [] Budesonide [Pulmicort Flexhaler] 90 mcg IH PRN PRN 11/10/17 11/10/17 Review of Systems - Physician Review All systems were reviewed & negative as marked: Yes - Review of Systems Constitutional: Normal Eyes: Normal ENT: Normal Respiratory: Cough. absent: SOB, Sputum, Wheezing Cardiovascular: Normal Gastrointestinal: Normal Genitourinary Female: Normal Musculoskeletal: Back Pain, Neck Pain Skin: Normal Neurological: Normal Endocrine: Normal Hemo/Lymphatic: Normal Psychiatric: Normal Physical Exam Vital Signs Reviewed: Yes Vital Signs Pulse Resp BP Pulse Ox 05/01/18 17:06 74 18 123/74 99 Temperature: Afebrile Blood Pressure: Normal Pulse: Regular Respiratory Rate: Normal Appearance: Positive for: Well-Appearing, Non-Toxic, Comfortable Pain Distress: None Mental Status: Positive for: Alert and Oriented X 3 - Systems Exam Head: Present: Atraumatic, Normocephalic Pupils: Present: PERRL Extroacular Muscles: Present: EOMI Conjunctiva: Present: Normal Mouth: Present: Moist Mucous Membranes Neck: Present: Normal Range of Motion Respiratory/Chest: Present: Good Air Exchange, Wheezes (Mild expiratory wheeze at the bases). No: Respiratory Distress, Accessory Muscle Use, Decreased Breath Sounds, Rales, Retracting, Rhonchi Cardiovascular: Present: Regular Rate and Rhythm, Normal S1, S2. No: Murmurs Abdomen: No: Tenderness, Distention, Peritoneal Signs Back: Present: Normal Inspection Upper Extremity: Present: Normal Inspection. No: Cyanosis, Edema Lower Extremity: Present: Normal Inspection. No: Edema Neurological: Present: GCS=15, CN II-XII Intact, Speech Normal Skin: Present: Warm, Dry, Normal Color. No: Rashes Psychiatric: Present: Alert, Oriented x 3, Normal Insight, Normal Concentration Medical Decision Making ED Course and Treatment: 05/01/18 23:42 38yo female who presented to ED for stated history. She was treated with Duoneb x3 and Prednisone and on re evaluation her lung was CTA b/l and and she states she feel much better. Thoracic spine spine xray - DJD. No acute finding Cervical spine - No acute finding. Pt reports chronic history of same pain. She declined Tramadol in ED states she have Percocet for the pain at home. She was DC home with Prednisone. Advised to continue with her inhaler and f/u with her PMD/Pain management. - RAD Interpretation Radiology Orders: 05/01/18 17:31 CHEST TWO VIEWS (PA/LAT) [RAD] Stat 05/01/18 17:32 CERVICAL SPINE >18YR W/OBLIQUE [RAD] Stat DORSAL (THORACIC) SPINE [RAD] Stat - Medication Orders Current Medication Orders: Discontinued Medications Albuterol/Ipratropium (Duoneb 3 Mg/0.5 Mg (3 Ml) Ud) 3 ml IH Q15M STA Stop: 05/01/18 17:32 Last Admin: 05/01/18 17:44 Dose: 3 ml Prednisone (Prednisone Tab) 60 mg PO STAT ONE Stop: 05/01/18 17:32 Last Admin: 05/01/18 17:43 Dose: 60 mg Tramadol HCl (Ultram) 50 mg PO STAT STA Stop: 05/01/18 17:33 Last Admin: 05/01/18 17:44 Dose: Not Given Non-Admin Reason: Patient Refused Disposition/Present on Arrival - Present on Arrival Any Indicators Present on Arrival: No History of DVT/PE: No History of Uncontrolled Diabetes: No Urinary Catheter: No History of Decub. Ulcer: No History Surgical Site Infection Following: None - Disposition Have Diagnosis and Disposition been Completed?: Yes Diagnosis: Back pain, Neck pain, Asthma attack Disposition: HOME/ ROUTINE Disposition Time: 20:25 Patient Plan: Discharge Condition: STABLE Discharge Instructions (ExitCare): Asthma in Adults, Neck Pain Additional Instructions: Follow up with your Doctor/Pain management Take your medication as directed Return to ED for any new or worsening symptoms Prescriptions: Prednisone 50 mg PO DAILY #5 tablet Referrals: FAMILY PROVIDER,NO [Primary Care Provider] - Follow up with primary So Ney MD [Medical Doctor] - Follow up with primary Forms: [employer] (Tajik)
[2018-05-01 20:29] VITALS: PULSE 60; O2SAT 98
[2018-05-01 20:30] VITALS: BP 123/81
--- NOTE | 2018-05-02 09:13 | RAD ---
Date of service: 05/01/2018 PROCEDURE: Cervical Spine Radiographs. HISTORY: Pain. COMPARISON: None available. FINDINGS: BONES: Alignment maintained. No fracture. Dens Intact. DISC SPACES: Normal. SOFT TISSUES: Normal. No prevertebral soft tissue swelling. OTHER FINDINGS: None. IMPRESSION: Normal cervical spine radiographs
--- NOTE | 2018-05-02 09:13 | RAD ---
Date of service: 05/01/2018 HISTORY: back pain COMPARISON: No prior. FINDINGS: BONES: Alignment maintained. No fracture. DISC SPACES: Normal. SOFT TISSUES: Normal. OTHER FINDINGS: None. IMPRESSION: Normal radiographs of the thoracic spine.
--- NOTE | 2018-05-02 09:14 | RAD ---
Date of service: 05/01/2018 HISTORY: cough COMPARISON: No prior. TECHNIQUE: Chest PA and lateral FINDINGS: LUNGS: No active pulmonary disease. PLEURA: No significant pleural effusion identified. No pneumothorax apparent. CARDIOVASCULAR: No aortic atherosclerotic calcification present. Normal cardiac size. No pulmonary vascular congestion. OSSEOUS STRUCTURES: No significant abnormalities. VISUALIZED UPPER ABDOMEN: Normal. OTHER FINDINGS: None. IMPRESSION: No active disease.
== END 2018-05-01 20:31 | disposition home or self-care (01) ==
LOC: ED 16:59
DX: J45.909 Unspecified asthma, uncomplicated (principal); M54.2 Cervicalgia; M54.6 Pain in thoracic spine; Z87.891 Personal history of nicotine dependence

== ENCOUNTER 2018-06-27 19:05 | Emergency (ER) | payer MEDICAID, OTHER ==
[2018-06-27 19:10] VITALS: BMI 44.1
[2018-06-27] MEDS ORDERED: Sodium Chloride 0.9% 1,000 ML IV STA (19:21)
[2018-06-27] MEDS ORDERED: DiphenhydrAMINE 50 mg/ml Inj IVP STA (19:21)
[2018-06-27 19:22] VITALS: TEMP 98
[2018-06-27] MEDS ORDERED: Albuterol-Ipratrop 3 mg / 0.5 (3 ml) UD IH STA (19:24)
[2018-06-27] MEDS ORDERED: EPINEPHrine 1 mg/ml (1:1000) Inj IM STA (19:24)
[2018-06-27] MEDS ORDERED: EPINEPHrine 1 mg/ml (1:1000) Inj SC STA (19:24)
--- NOTE | 2018-06-27 19:28 | ED PDOC ---
Arrival/HPI - General Chief Complaint: Allergic Reaction Time Seen by Provider: 06/27/18 19:10 - History of Present Illness Narrative History of Present Illness (Text): 38 yr old female w/ hx of asthma p/w rash, itchy throat after eating a chocloate covered pretzel 1 hour prior. New brand of pretzel per pt. She noticed immediately afterwards breaking out in hives near her mouth as well as her chest. She notes that she took benadryl with improvement of her chest rash. Rash around her mouth and around her chest is itchy. She denies any other new foods / clothes or detergents. She denies any shortness of breath or chest pain. No abdominal pain or n/v. No tongue swelling. No other complaints. Past Medical History - Past History Past History: Non-Contributing - Infectious Disease Hx of Infectious Diseases: None - Tetanus Immunization Tetanus Immunization: Unknown - Cardiac Hx Cardiac Disorders: No - Pulmonary Hx Respiratory Disorders: Yes Hx Asthma: Yes Hx Bronchitis: Yes Hx Sleep Apnea: Yes (confirmed by sleep study, mild) - Neurological Hx Neurological Disorder: No - HEENT Hx HEENT Disorder: No - Renal Hx Renal Disorder: No - Endocrine/Metabolic Hx Endocrine Disorders: No - Hematological/Oncological Hx Blood Disorders: No - Integumentary Hx Dermatological Disorder: No - Musculoskeletal/Rheumatological Hx Musculoskeletal Disorders: Yes Hx Arthritis: Yes (mary knee) Hx Fractures: Yes (left fibula) - Gastrointestinal Hx Gastrointestinal Disorders: No - Genitourinary/Gynecological Hx Genitourinary Disorders: Yes Other/Comment: ovarian cyst and uterine fibroid - Psychiatric Hx Psychophysiologic Disorder: No Hx Substance Use: Yes - Past Surgical History Past Surgical History: No Previous - Surgical History Hx Section: Yes Other/Comment: drained abscess x2, ovarian cyst and uterine fibroid removed 10/22/15 ectopic - Anesthesia Hx Anesthesia: Yes Hx Anesthesia Reactions: No Hx Malignant Hyperthermia: No - Suicidal Assessment Feels Threatened In Home Enviroment: No Family/Social History Family/Social History: Unknown Family HX Smoking Status: Light Smoker < 10 Cigarettes Daily Hx Alcohol Use: Yes (Socially) Frequency of alcohol use: Socially Hx Substance Use: Yes Substance used: Marijuana Hx Substance Use Treatment: No Allergies/Home Meds Allergies/Adverse Reactions: Allergies aspirin Allergy (Intermediate, Verified 06/27/18 19:11) ANAPHYLAXIS "my throat swells and i get short of breath" strawberry Allergy (Verified 06/27/18 19:19) SHORTNESS OF BREATH Home Medications: Home Meds Medication Instructions Recorded Confirmed Albuterol/Ipratropium [Duoneb 3 3 ml IH Q6 PRN 07/28/17 11/10/17 mg/0.5 mg (3 ml) UD] Multivit/Folic Acid/I 1 tab PO DAILY 08/18/17 11/10/17 [] Budesonide [Pulmicort Flexhaler] 90 mcg IH PRN PRN 11/10/17 11/10/17 Review of Systems - Review of Systems Constitutional: absent: Fatigue, Weight Change Eyes: absent: Vision Changes, Photophobia ENT: absent: Hearing Changes, Tinnitus Respiratory: absent: SOB, Cough, Sputum Cardiovascular: absent: Chest Pain, Palpitations Gastrointestinal: absent: Abdominal Pain, Stool Changes Genitourinary Female: absent: Dysuria, Frequency Musculoskeletal: absent: Arthralgias, Back Pain Skin: Rash, Skin Lesions. absent: Pruritis Neurological: absent: Headache, Dizziness Endocrine: absent: Diaphoresis Hemo/Lymphatic: absent: Adenopathy Psychiatric: absent: Anxiety, Depression Physical Exam Vital Signs Temp Pulse Resp BP Pulse Ox 06/27/18 19:14 98.0 F 88 18 145/75 98 Temperature: Afebrile Blood Pressure: Normal Pulse: Regular Respiratory Rate: Normal Appearance: Positive for: Well-Appearing, Non-Toxic, Comfortable Pain Distress: None Mental Status: Positive for: Alert and Oriented X 3 - Systems Exam Head: Present: Atraumatic, Normocephalic Pupils: Present: PERRL Extroacular Muscles: Present: EOMI Conjunctiva: Present: Normal Ears: Present: Normal, NORMAL TM Mouth: Present: Moist Mucous Membranes, Normal Lips. No: Drooling, Trismus Pharnyx: Present: Normal. No: ERYTHEMA, EXUDATE, TONSILS ENLARGED, Peritonsilar Swelling, Uvular Deviation, Muffled/Hoarse Voice, Strider Nose (External): Present: Atraumatic. No: Abrasion Nose (Internal): Present: Normal Inspection Neck: Present: Normal Range of Motion. No: Meningeal Signs, MIDLINE TENDERNESS Respiratory/Chest: Present: Clear to Auscultation, Good Air Exchange. No: Respiratory Distress, Accessory Muscle Use, Wheezes Cardiovascular: Present: Regular Rate and Rhythm, Normal S1, S2. No: Murmurs Abdomen: No: Tenderness, Distention, Peritoneal Signs Back: Present: Normal Inspection Upper Extremity: Present: Normal Inspection. No: Cyanosis, Edema Lower Extremity: Present: Normal Inspection. No: Edema Neurological: Present: GCS=15, CN II-XII Intact, Speech Normal Skin: Present: Warm, Dry, Rashes (macular urticarial rash on chest, R neck and perioral ). No: Diaphoretic Psychiatric: Present: Alert, Oriented x 3, Normal Insight, Normal Concentration Medical Decision Making ED Course and Treatment: 38 yr old female p/w allergic reaction, with tickling sensation in throat. Moderate allergic reaction. Given sensation in throat and seek epi as well as allergy cocktail. pt notes she took 25 of benadryl earlier. Pending reassessment, observation for 4+ hours. Pt in NAD 06/27/18 21:57 pt in NAD, resting comfortable w/ stable BP and good o2 sats pt notes she does not have any throat complaints or sob at this time pending reassessment 06/27/18 23:37 Reassessed: pt in NAD, urticaria improved, lungs remain cta b/l, no throat symptoms or angioedema. Orophyrangeal exam remains unremarkable endorsed to pt to d/c that brand of chocolate covered pretzel and need to f/u w/ pmd and rehabilitation teacher. also gave scripts and return indications pt agreeable to plan. - Medication Orders Current Medication Orders: Sodium Chloride (Sodium Chloride 0.9%) 1,000 mls @ 999 mls/hr IV .Q1H1M STA Stop: 06/27/18 20:21 Discontinued Medications Diphenhydramine HCl (Benadryl) 25 mg IVP STAT STA Stop: 06/27/18 19:22 Famotidine (Pepcid) 20 mg IVP STAT STA Stop: 06/27/18 19:22 Famotidine (Pepcid) 40 mg IVP STAT STA Stop: 06/27/18 19:22 Methylprednisolone (Solu-Medrol) 125 mg IVP STAT STA Stop: 06/27/18 19:22 Disposition/Present on Arrival - Present on Arrival Any Indicators Present on Arrival: No History of DVT/PE: No History of Uncontrolled Diabetes: No Urinary Catheter: No History of Decub. Ulcer: No History Surgical Site Infection Following: None - Disposition Have Diagnosis and Disposition been Completed?: Yes Diagnosis: Allergic reaction, Urticaria, Food allergy Disposition: HOME/ ROUTINE Disposition Time: 23:35 Condition: STABLE Discharge Instructions (ExitCare): Food Allergy, Hives (DC), Allergy Skin Testing Additional Instructions: STAY AWAY AND DO NOT EAT THAT BRAND OF CHOCOLATE PRETZEL. SEE YOUR PRIMARY CARE DOCTOR FOR A Referral to an senior dentist. KANDACE DUONG, thank you for letting us take care of you today. Your provider was Yasir Almanzar and you were treated for ALLERGIC REACTION. The emergency medical care you received today was directed at your acute symptoms. If you were prescribed any medication, please fill it and take as directed. It may take several days for your symptoms to resolve. Return to the Emergency Department if your symptoms worsen, do not improve, or if you have any other problems. Please contact your doctor or call one of the physicians/clinics you have been referred to that are listed on the Patient Visit Information form that is included in your discharge packet. Bring any paperwork you were given at discharge with you along with any medications you are taking to your follow up visit. Our treatment cannot replace ongoing medical care by a primary care provider outside of the emergency department. Thank you for allowing the [facility] team to be part of your care today. If you had an X-Ray or CT scan: A Radiologist will review the ED reading if any change in treatment is needed we will contact you. If you had a blood, urine, or wound culture: It will take several days for the results, if any change in treatment is needed we will contact you. If you had an STI test: It will take 48 hours for the results. Please call after 1 week if you have not heard back. Prescriptions: DiphenhydrAMINE [Benadryl] 25 mg PO Q4H PRN 6 Days #36 cap PRN Reason: allergy Epinephrine [Epipen] 0.3 mg IJ Q5M PRN 90 Days #1 auto.injct PRN Reason: Anaphylaxis Famotidine [Pepcid] 20 mg PO Q12H PRN 3 Days #3 tab PRN Reason: Allergy Symptoms predniSONE [Prednisone] 40 mg PO DAILY 5 Days #10 tab Referrals: [facility] [Outside] - Follow up with primary [facility] [Outside] - Follow up with primary [facility] [place] [Outside] - Follow up with primary Kristen Garcia MD [Family Provider] - Follow up with primary Forms: [employer] (Thai)
[2018-06-28 00:05] VITALS: BP 123/68; PULSE 67; RESP 16; O2SAT 95
== END 2018-06-28 00:02 | disposition home or self-care (01) ==
LOC: ED 19:05
DX: L27.2 Dermatitis due to ingested food (principal)
CPT/HCPCS: 96361; 96372; 96374; 96375; 99284; J0171; J1200; J2930; J7030